=== PATIENT | female | born 1980 | race Caucasian/White ===

== ENCOUNTER 2023-10-18 17:21 | Emergency (ER) | payer MEDICAID, SELFPAY ==
[2023-10-18 17:26] VITALS: BP 133/98; PULSE 80; RESP 18; TEMP 36.7; O2SAT 99; BMI 32.3
--- NOTE | 2023-10-18 17:33 | XR_ITS ---
The [address] [address] Patient Name: NISA ARSHAD MRN: [id number] date: 1980 Sex: F Assigned Patient Location: ER Current Patient Location: ED.MAIN Accession/Order Number: [id number] Exam Date: 10/18/2023 17:46 Report Date: 10/18/2023 18:04 At the request of: GARY COSTELLO Procedure: XR chest 1V EXAM: Chest x-ray HISTORY: . Cough . COMPARISON: None TECHNIQUE: Single view of the chest. FINDINGS: Heart and vascularity are unremarkable. Lungs are free of focal infiltrates. Patient is slightly rotated on today's exam. Grossly no bony abnormality is appreciated. XR/XR chest 1V Impression: No acute heart or lung disease identified. Electronically authenticated by: CAMILLE ECHEVERRIA Date: 10/18/2023 18:04
--- NOTE | 2023-10-18 17:33 | ED_ITS ---
HPI - URI/Sore Throat General Chief Complaint: Upper Respiratory Infection Stated Complaint: Upper Respiratory Infection Time Seen by Provider: 10/18/23 17:22 Source: patient History of Present Illness HPI Narrative: Patient is a 43-year-old female who presents to the emergency department for cough and chest congestion for the last month. She states she is coughing up green. She has had no hemoptysis, fevers, vomiting. She has been intermittently nauseous. She reports pain in the chest wall with deep breathing and coughing. She does not take control, she has had no extremity swelling, no major medical history. She has been using ibuprofen, Tylenol and uxcv-bns-zvnffwt cough medications without improvement. She is not concerned for .No sick contacts in the home. Related Data Previous Rx's Medication Instructions Recorded kpraeybhjykyolf-wttvfnyttntjljz-GM 10 ml PO Q6H PRN cold symptoms 10/18/23 2 mg-30 mg-10 mg/5 mL oral syrup #200 mL (Bromfed DM) doxycycline hyclate 100 mg tablet 100 mg PO BID 10 days #20 tabs 10/18/23 methylprednisolone 4 mg tablets in See Rx Instructions .Route 10/18/23 a dose pack (Medrol (Matt)) .COMPLEX #21 ea Allergies Allergy/AdvReac Type Severity Reaction Status Date / Time No Known Drug Allergies Allergy Verified 10/18/23 17:29 Review of Systems ROS Constitutional Denies: fever or chills Ears, nose, mouth, and throat Reports: nasal congestion; Denies: throat pain Respiratory Reports: cough, pain on inspiration, change in phlegm color and chest congestion; Denies: coughing up blood Gastrointestinal Reports: nausea; Denies: vomiting or diarrhea Musculoskeletal Denies: back pain or neck pain Integumentary/Breast Denies: rash Neurological Denies: headache Hematologic/Lymphatic Denies: easy bruising Exam Narrative Exam Narrative: Gen.: Awake, alert, in no distress Head: Normocephalic, atraumatic ENT: Moist mucous membranes, Bilateral TMs bulging, no pharyngeal erythema Respiratory: No respiratory distress, lungs clear bilaterally; No wheezing or rhonchi noted Cardio: Regular rate and rhythm Extremities: Moves extremities equally Psych: Normal mood and affect Neuro: No focal neuro deficit Skin: Warm, dry, intact Constitutional Vital Signs, click to edit/add: Last Vital Signs Temp 98.0 F 10/18/23 17:26 Pulse 80 10/18/23 17:26 Resp 18 10/18/23 17:26 BP 133/98 H 10/18/23 17:26 Pulse Ox 99 10/18/23 17:26 O2 Del Method Room Air 10/18/23 17:26 Course Vital Signs Vital signs: Vital Signs Temperature 98.0 F 10/18/23 17:26 Pulse Rate 80 10/18/23 17:26 Respiratory Rate 18 10/18/23 17:26 Blood Pressure 133/98 H 10/18/23 17:26 Pulse Oximetry 99 10/18/23 17:26 Oxygen Delivery Method Room Air 10/18/23 17:26 Temperature 98.0 F 10/18/23 17:26 Pulse Rate 80 10/18/23 17:26 Respiratory Rate 18 10/18/23 17:26 Blood Pressure 133/98 H 10/18/23 17:26 Pulse Oximetry 99 10/18/23 17:26 Oxygen Delivery Method Room Air 10/18/23 17:26 MDM - URI/Sore Throat MDM Narrative Medical decision making narrative: Patient with stable vital signs, normal oxygenation and no tachycardia in the ER. Chest x-ray obtained. No evidence of acute cardiopulmonary changes noted on x-ray. Patient treated based on duration of her symptoms with doxycycline, steroids, Bromfed-DM. She maintains normal vital signs. She appears well- hydrated and nontoxic. She was given education and reassurance. Follow-up with PCP and return to the ER if symptoms change or worsen Medical Records Attestation: I reviewed the patient's medical records. Imaging Data Chest x-ray: Attestation: I have reviewed the pertinent imaging results. Radiologist's impression: ITS Impressions Chest X-Ray 10/18/23 17:33 Impression: No acute heart or lung disease identified. Electronically authenticated by: CAMILLE ECHEVERRIA Date: 10/18/2023 18:04 Discharge Plan Discharge Chief Complaint: Upper Respiratory Infection Clinical Impression: Upper respiratory infection, Cough Patient Disposition: Home, Self-Care Time of Disposition Decision: 18:14 Condition: Good Prescriptions / Home Meds: New methylprednisolone [Medrol (Matt)] 4 mg tablets,dose pack See Rx Instructions .ROUTE .COMPLEX Qty: 21 0RF Rx Instructions: Taper as directed zlhdivbnqwezuui-rrzxujmpx-UE [Bromfed DM] 2-30-10 mg/5 mL syrup 10 ml PO Q6H PRN (Reason: cold symptoms) Qty: 200 0RF doxycycline hyclate 100 mg tablet 100 mg PO BID 10 Days Qty: 20 0RF Instructions: Upper Respiratory Infection (ED), Acute Cough (ED) Stand Alone Forms: Portal Instructions Referrals: BOB HUMPHRIES [Primary Care Provider] - 1 week
[2023-10-18] MEDS: PREDNISONE 20 MG TABLET 60 MG PO (18:50)
[2023-10-18] MEDS: DOXYCYCLINE MONOHYDRATE 100 MG CAPSULE PO (18:50)
== END 2023-10-18 18:56 | disposition home or self-care (01) ==
PROVIDERS: Emergency Provider Emergency Medicine; PCP Family Medicine
DX: R05.9 Cough, unspecified (principal); J06.9 Acute upper respiratory infection, unspecified
CPT/HCPCS: 71045; 99283; J7512

== ENCOUNTER 2024-02-02 07:41 | Emergency (ER) | payer MEDICAID, SELFPAY ==
[2024-02-02 07:47] VITALS: BP 125/78; PULSE 102; O2SAT 100; BMI 29.3
--- OUTSIDE RECORDS SUMMARY | 2024-02-02 08:07 | XMS_ITS | CCD ---
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 Name Role Phone DARRON MCMILLAN Primary Care Physician Magdi Gutierrez Admitting Unavailable Magdi Gutierrez Attending Unavailable Darron Mcmillan Primary Care Unavailable ESTUARDO ECHEVERRIA Attending Unavailable Darron Mcmillan Primary Care Unavailable Darron Mcmillan Attending Unavailable Darron Mcmillan Primary Care Unavailable Darron Mcmillan Attending Unavailable Darron Mcmillan Primary Care Unavailable Darron Mcmillan Attending Unavailable Allergies Allergy Classification Reported Allergen(s) Allergy Type Date of Onset Reaction(s) Facility (1 source) No Known Medication Allergies; Translations: [No Known Medication Allergies] Propensity to adverse reactions to drug (disorder) [facility] Repository Medications Current Medications Medication Drug Class(es) Dates Sig (Normalized) Sig (Original) diphenhydrAMINE hydrochloride 25 mg oral capsule (1 source) Histamine-1 Receptor Antagonist Start: 04-22-2022 take 1 capsule by mouth three times daily as needed Benadryl 25 mg Cap 1 -2 caps, Oral, TID, PRN for itching, # 30 cap(s), Refills(s) 0 Start Date: 04/22/22 Status: Ordered Completed/Discontinued Medications Medication Drug Class(es) Dates Sig (Normalized) Sig (Original) cephalexin 500 mg oral capsule (1 source) Cephalosporin Antibacterial Start: 04-22-2022 take 1 capsule by mouth three times daily Keflex 500 mg Cap 500 mg = 1 cap(s), Oral, TID, Take one capsule by mouth three times a day for ten days, # 30 cap(s), Refills(s) 0 Start Date: 04/22/22 Status: Ordered Problems Problem Classification Problem Date Documented Da te Episodic/Chronic Abdominal pain (1 source) Lower abdominal pain, unspecified; Translations: [Lower abdominal pain, unspecified] Onset: 12-16-2023 Episodic Allergic reactions (1 source) Contact dermatitis; Translations: [Unspecified contact dermatitis, unspecified cause] Onset: 04-22-2022 Episodic Other skin disorders (1 source) Rash and other nonspecific skin eruption; Translations: [Rash and other nonspecific skin eruption] Onset: 03-17-2023 Episodic Skin and subcutaneous tissue infections (1 source) Cellulitis; Translations: [Cellulitis, unspecified] Onset: 04-22-2022 Episodic Results Test Name Value Interpretation Reference Range Facil [facility] Basic Metabolic Profon 12-15 Anion gap [Moles/Vol] 10 mmol/L Normal 9-17 [facility] Comment on above: Performed By: #### B MP, CDP, LIP, HCG, LIVP #### [facility] [address] [place] [address] [place] [address] Human Resource Statistician: Haris Baker MD BUN/CRE Ratio 10 Normal 9-20 [facility] Comment on above: Performed By: #### B MP, CDP, LIP, HCG, LIVP #### [facility] [address] [place] [address] [place] [address] Human Resource Statistician: Haris Baker MD Calcium [Mass/Vol] 9.0 mg/dL Normal 8.6-10.4 [facility] Comment on above: Performed By: #### B MP, CDP, LIP, HCG, LIVP #### [facility] [address] [place] [address] Dr. [place], [facility] Human Resource Statistician: Haris Baker MD Chloride [Moles/Vol] 102 mmol/L Normal 98-107 [facility] Comment on above: Performed By: #### B MP, CDP, LIP, HCG, LIVP #### [facility] [address] [place] [address] [place] [address] Human Resource Statistician: Haris Baker MD CO2 [Moles/Vol] 25 mmol/L Normal 20-31 [facility] Comment on above: Performed By: #### B MP, CDP, LIP, HCG, LIVP #### [facility] [address] [place] [address] Human Resource Statistician: Haris Baker MD Creatinine [Mass/Vol] 0.7 mg/dL Normal 0.5-0.9 [facility] Comment on above: Performed By: #### B MP, CDP, LIP, HCG, LIVP #### [facility] [address] [place] [address] Human Resource Statistician: Haris Baker MD GFR/1.73 sq M.predicted among non-blacks MDRD (S/P/Bld) [Vol rate/Area] mL/min/{1.73_m2} Normal >60 [facility] Comment on above: Result Comment: These results are not intended for use in patients <18 years of age. eGFR results are calculated without a race factor using the 2020 CKD-EPI equation. Careful clinical correlation is recommended, particularly when comparing to results calculated using previous equations. The CKD-EPI equation is less accurate in patients with extremes of muscle mass, extra-renal metabolism of creatine, excessive creatine ingestion, or following therapy that affects renal tubular secretion. Performed By: #### B MP, CDP, LIP, HCG, LIVP #### [address] [place] [address] Human Resource Statistician: Haris Baker MD Glucose [Mass/Vol] 138 mg/dL High 70-99 [facility] Comment on above: Performed By: #### B MP, CDP, LIP, HCG, LIVP #### [facility] [address] [place] [address] Human Resource Statistician: Haris Baker MD Potassium [Moles/Vol] 3.4 mmol/L Low 3.7-5.3 [facility] Comment on above: Performed By: #### B MP, CDP, LIP, HCG, LIVP #### [address] [place] [address] Human Resource Statistician: Haris Baker MD Sodium [Moles/Vol] 137 mmol/L Normal 135-144 [facility] Comment on above: Performed By: #### B MP, CDP, LIP, HCG, LIVP #### [facility] [address] [place], [place] [id number] Human Resource Statistician: Haris Baker MD Urea nitrogen [Mass/Vol] 7 mg/dL Normal 6-20 [facility] Comment on above: Performed By: #### B MP, CDP, LIP, HCG, LIVP #### [facility] [address] [place], [place] [id number] Human Resource Statistician: Haris Baker MD CBC with Diffon 12-16-2023 Abs. Basophil 0.05 k/uL Normal 0.00-0.20 [facility] Comment on above: Performed By: #### B MP, CDP, LIP, HCG, LIVP #### [address] [place], [place] [id number] Human Resource Statistician: Haris Baker MD Abs.Imm.Granulocyte <0.03 Normal 0.00-0.30 [facility] Comment on above: Performed By: #### B MP, CDP, LIP, HCG, LIVP #### [address] [place], [place] [id number] Human Resource Statistician: Haris Baker MD Abs.Neutrophil (Seg) 5.73 k/uL Normal 1.50-8.10 [facility] Comment on above: Performed By: #### B MP, CDP, LIP, HCG, LIVP #### [facility] [address] [place] [address] Dr. [place], [place] [id number] Human Resource Statistician: Haris Baker MD Basophils/100 WBC (Bld) 1 % Normal 0-2 [facility] Comment on above: Performed By: #### B MP, CDP, LIP, HCG, LIVP #### [facility] [address] [place], [place] [id number] Human Resource Statistician: Haris Baker MD Eosinophils (Bld) [#/Vol] 0.19 10*3/uL Normal 0.00-0.44 [facility] Comment on above: Performed By: #### B MP, CDP, LIP, HCG, LIVP #### [address] [place], [place] [id number] Human Resource Statistician: Haris Baker MD Eosinophils/100 WBC (Bld) 2 % Normal 1-4 [facility] Comment on above: Performed By: #### B MP, CDP, LIP, HCG, LIVP #### [address] [place] [id number] Human Resource Statistician: Haris Baker MD Erythrocyte distribution width (RBC) [Ratio] 12.5 % Normal 11.8-14.4 [facility] Comment on above: Performed By: #### B MP, CDP, LIP, HCG, LIVP #### [address] [place], [place] [address] Human Resource Statistician: Haris Baker MD Hematocrit (Bld) [Volume fraction] 44.6 % Normal 36.3-47.1 [facility] Comment on above: Performed By: #### B MP, CDP, LIP, HCG, LIVP #### [address] [place] [address] Human Resource Statistician: Haris Baker MD Hemoglobin (Bld) [Mass/Vol] 14.7 g/dL Normal 11.9-15.1 [facility] Comment on above: Performed By: #### B MP, CDP, LIP, HCG, LIVP #### [address] [place] [address] Human Resource Statistician: Haris Baker MD Immature granulocytes/100 WBC (Bld) 0 % Normal 0 [facility] Comment on above: Performed By: #### B MP, CDP, LIP, HCG, LIVP #### [address] [place] [id number] Human Resource Statistician: Haris Baker MD Lymphocytes (Bld) [#/Vol] 3.07 10*3/uL Normal 1.10-3.70 [facility] Comment on above: Performed By: #### B MP, CDP, LIP, HCG, LIVP #### [address] [place] [id number] Human Resource Statistician: Haris Baker MD Lymphocytes/100 WBC (Bld) 32 % Normal 24-43 [facility] Comment on above: Performed By: #### B MP, CDP, LIP, HCG, LIVP #### [address] [place] [id number] Human Resource Statistician: Haris Baker MD MCH (RBC) [Entitic mass] 29.5 pg Normal 25.2-33.5 [facility] Comment on above: Performed By: #### B MP, CDP, LIP, HCG, LIVP #### [address] [place], [facility]83 Human Resource Statistician: Haris Baker MD MCHC (RBC) [Mass/Vol] 33.0 g/dL Normal 28.4-34.8 [facility] Comment on above: Performed By: #### B MP, CDP, LIP, HCG, LIVP #### [address] [place], [facility]83 Human Resource Statistician: Haris Baker MD MCV (RBC) [Entitic vol] 89.4 fL Normal 82.6-102.9 [facility] Comment on above: Performed By: #### B MP, CDP, LIP, HCG, LIVP #### [address] [place] [address] Human Resource Statistician: Haris Baker MD Monocytes (Bld) [#/Vol] 0.70 10*3/uL Normal 0.10-1.20 [facility] Comment on above: Performed By: #### B MP, CDP, LIP, HCG, LIVP #### [facility] [address] [place], [place] [address] Human Resource Statistician: Haris Baker MD Monocytes/100 WBC (Bld) 7 % Normal 3-12 [facility] Comment on above: Performed By: #### B MP, CDP, LIP, HCG, LIVP #### [facility] [address] [place], [place] [address] Human Resource Statistician: Haris Baker MD Neutrophil (Seg) 58 % Normal 36-65 [facility] Comment on above: Performed By: #### B MP, CDP, LIP, HCG, LIVP #### [facility] [address] [place], [facility]83 Human Resource Statistician: Haris Baker MD NRBC Automated 0.0 per 100 WBC Normal 0.0 [facility] Comment on above: Performed By: #### B MP, CDP, LIP, HCG, LIVP #### [address] [place], [facility]83 Human Resource Statistician: Haris Baker MD Platelet mean volume (Bld) [Entitic vol] 10.3 fL Normal 8.1-13.5 [facility] Comment on above: Performed By: #### B MP, CDP, LIP, HCG, LIVP #### [address] [place], [place] [address] Human Resource Statistician: Haris Baker MD Platelets (Bld) [#/Vol] 289 10*3/uL Normal 138-453 [facility] Comment on above: Performed By: #### B MP, CDP, LIP, HCG, LIVP #### [address] [place] [address] Human Resource Statistician: Haris Baker MD RBC (Bld) [#/Vol] 4.99 10*6/uL Normal 3.95-5.11 [facility] Comment on above: Performed By: #### B MP, CDP, LIP, HCG, LIVP #### [facility] [address] [place], [place] [address]83 Human Resource Statistician: Haris Baker MD WBC (Bld) [#/Vol] 9.8 10*3/uL Normal 3.5-11.3 [facility] Comment on above: Performed By: #### B MP, CDP, LIP, HCG, LIVP #### [facility] [address] [place] [address] Human Resource Statistician: Haris Baker MD CT ABDOMEN PELVIS W IV CONTR Varun 12-16-2023 CT ABDOMEN PELVIS W IV CONTRAST EXAMINATION: CT OF THE ABDOMEN AND PELVIS WITH CONTRAST 12/16/2023 2:40 am TECHNIQUE: CT of the abdomen and pelvis was performed with the administration of intravenous contrast. Multiplanar reformatted images are provided for review. Automated exposure control, iterative reconstruction, and/or weight based adjustment of the mA/kV was utilized to reduce the radiation dose to as low as reasonably achievable. COMPARISON: None. HISTORY: ORDERING SYSTEM PROVIDED HISTORY: Left lower quadrant pain, suprapubic pain TECHNOLOGIST PROVIDED HISTORY: Left lower quadrant pain, suprapubic pain Decision Support Exception - unselect if not a suspected or confirmed emergency medical condition->Emergency Medical Condition (MA) FINDINGS: Lower Chest: Visualized portion of the lower chest demonstrates no acute abnormality. Organs: The liver is noted for a subcentimeter hypodensity at the posterior dome compatible with cyst but too small to accurately characterize. No imaging follow-up recommended. The liver otherwise is unremarkable. The gallbladder, pancreas, spleen, adrenal glands, kidneys and visualized ureters are unremarkable. GI/Bowel: Stomach and duodenal sweep demonstrate no acute abnormality. There is no evidence of bowel obstruction. No evidence of abnormal bowel wall thickening or distension. No evidence of appendicitis but the appendix is not seen. Pelvis: The bladder and reproductive organs are unremarkable. Peritoneum/Retroperit oneum: No evidence of ascites or free air. No evidence of lymphadenopathy. Aorta is normal in caliber. Bones/Soft Tissues: No acute bone or soft tissue abnormality evident. IMPRESSION: No acute intra-abdominal or intrapelvic process. Interpreted by: Baryr Sherman MD Signed by: Barry Sherman MD 12/16/23 Final result Normal [facility] HCG Screen, Bloodon 12-16-19 HCG Screen, Blood Negative Normal NEG [facility] Comment on above: Result Comment: Spec imens with hCG levels near the threshold of the test (25 mIU/mL) may give a negative or indeterminate result. In such cases, another test should be performed with a new specimen in 48-72 hours. If early is suspected clinically in this setting, correlation with quantitative serum b-hCG level is suggested. [facility] has confirmed the use of plasma for this test. This has not been cleared or approved by the U.[place]. Food and Drug Administration. The FDA has determined that such clearance is not necessary. Performed By: #### B MP, CDP, LIP, HCG, LIVP #### [facility] [address] [place] [address] Human Resource Statistician: Haris Baker MD Lipaseon 12-16-2023 Lipase [Catalytic activity/Vol] 22 U/L Normal 13-60 [facility] Comment on above: Performed By: #### B MP, CDP, LIP, HCG, LIVP #### [facility] [address] [place] [address] Human Resource Statistician: Haris Baker MD Liver Profileon 12-16-2023 Albumin [Mass/Vol] 4.0 g/dL Normal 3.5-5.2 [facility] Comment on above: Performed By: #### B MP, CDP, LIP, HCG, LIVP #### [facility] [address] [place] [address] Human Resource Statistician: Haris Baker MD Albumin/Glob Ratio 1.2 Normal 1.0-2.5 [facility] Comment on above: Performed By: #### B MP, CDP, LIP, HCG, LIVP #### [facility] [address] [place] [address] Human Resource Statistician: Haris Baker MD Alkaline Phos 58 U/L Normal 35-104 [facility] Comment on above: Performed By: #### B MP, CDP, LIP, HCG, LIVP #### [facility] [address] [place], [place] [id number] Human Resource Statistician: Haris Baker MD ALT [Catalytic activity/Vol] 14 U/L Normal 5-33 [facility] Comment on above: Performed By: #### B MP, CDP, LIP, HCG, LIVP #### [facility] [address] [place] [address] Human Resource Statistician: Haris Baker MD AST [Catalytic activity/Vol] 13 U/L Normal <32 [facility] Comment on above: Performed By: #### B MP, CDP, LIP, HCG, LIVP #### [address] [place], [place] [address]383 Human Resource Statistician: Haris Baker MD Bilirubin [Mass/Vol] 0.7 mg/dL Normal 0.3-1.2 [facility] Comment on above: Performed By: #### B MP, CDP, LIP, HCG, LIVP #### [address] [place], [place] [address]83 Human Resource Statistician: Haris Baker MD Bilirubin, Indirect Can not be calculated Normal 0.0-1 .0 [facility] Comment on above: Performed By: #### B MP, CDP, LIP, HCG, LIVP #### [address] [place], [place] 240[address]483 Human Resource Statistician: Haris Baker MD Bilirubin.indirect [Mass/Vol] mg/dL Normal <0.3 [facility] Comment on above: Performed By: #### B MP, CDP, LIP, HCG, LIVP #### [facility] [address] [place], [place] [address]83 Human Resource Statistician: Haris Baker MD Protein [Mass/Vol] 7.4 g/dL Normal 6.4-8.3 [facility] Comment on above: Performed By: #### B MP, CDP, LIP, HCG, LIVP #### [facility] [address] [place], [place] [address]83 Human Resource Statistician: Haris Baker MD UA w/Reflex Cultureon 2023 Bilirubin, SemiQt,Ur Negative Normal NEG [facility] Comment on above: Performed By: #### U AX, UMICAO #### [facility] [address] [place] [address] Human Resource Statistician: Haris Baker MD Blood, Urine Negative Normal [facility] Comment on above: Performed By: #### U AX, UMICAO #### [facility] [address] [place] [address] Human Resource Statistician: Haris Baker MD Clarity (U) Clear Normal CLEAR [facility] Comment on above: Performed By: #### U AX, UMICAO #### [facility] [address] [place], [place] 5284383 Human Resource Statistician: Haris Baker MD Color (U) Yellow Normal YEL [facility] Comment on above: Performed By: #### U AX, UMICAO #### [facility] [address] [place] [address] Human Resource Statistician: Haris Baker MD Glucose Ql (U) Negative Normal NEG [facility] Comment on above: Performed By: #### U AX, UMICAO #### [facility] [address] [place] [address] Human Resource Statistician: Haris Baker MD Ketones Ql (U) Negative Normal NEG [facility] Comment on above: Performed By: #### U AX, UMICAO #### [facility] [address] [place] [address] Human Resource Statistician: Haris Baker MD Leukocyte esterase Test strip Ql (U) Negative Normal NEG [facility] Comment on above: Performed By: #### U AX, UMICAO #### [facility] [address] [place], [place] [address] Human Resource Statistician: Haris Baker MD Nitrite,Ur Negative Normal NEG [facility] Comment on above: Performed By: #### U AX, UMICAO #### [facility] [address] [place], [place] [address] Human Resource Statistician: Haris Baker MD PH,Ur 6.0 Normal 5.0-9.0 [facility] Comment on above: Performed By: #### U AX, UMICAO #### [facility] [address] [place], [place] [address] Human Resource Statistician: Haris Baker MD Protein Ql (U) Negative Normal NEG [facility] Comment on above: Performed By: #### U AX, UMICAO #### [facility] [address] [place], [place] [address] Human Resource Statistician: Haris Baker MD Spec. [place],Ur 1.010 Normal 1.010-1.020 [facility] Comment on above: Performed By: #### U AX, UMICAO #### [address] [place], [place] [address] Human Resource Statistician: Haris Baker MD Urobilinogen,Ur Normal Normal 0.0-1.0 [facility] Comment on above: Performed By: #### U AX, UMICAO #### [facility] [address] [place] [address] Human Resource Statistician: Haris Baker MD Urinalysis,Microon 4 Epithelial cells LM Ql (Urine sed) None Normal 0-25 [facility] Comment on above: Performed By: #### U AX, UMICAO #### [facility] [address] [place], [place] [address] Human Resource Statistician: Haris Baker MD Urine RBC's None Normal 0-2 [facility] Comment on above: Performed By: #### GUERLINE SELBY #### [facility] [address] [place], [place] [address]83 Human Resource Statistician: Haris Baker MD Urine WBC's None Normal 0-5 [facility] Comment on above: Performed By: #### GUERLINE SELBY #### [facility] [address] [place] [address] Human Resource Statistician: Haris Baker MD Outside Recordson 11-27-2023 Outside Records [id number]. [facility]23 Outside Records [id number]#1 .00[facility] Rad - Other Radiology Report on 10-20-2023 Rad - Other Radiology Report [id number] .00[facility] Outside Recordson 03-18-2023 Outside Records [id number]#1 .00[facility] Coding Summary.on 04-23-2022 Coding Summary. CD:[id number] G h0bWw+PGhlYWQ+YI7VZCX zZ75waGApmS3VI9bSHP2W VXBJIFZUMS7ADU0fnNU0R AnwM6IkyuEk DwhdcRJwGU78ZQw5VKW1w NhsEWliqX0fsCIjI1v0Ck YnZG25mC05RDtxAWMdKiF 3LjZpbjsgbWFy V4vlRiYyoNMcIpb+PHRhY mxlIHdpZHRoPScxMDAlJy NffMzaMI3eQx3xWKBqMSQ vbGxhcHNlOiBj n2nwHZGwSYjxEM8qqLeoG 7CdyBN8UMWkb7m4Mf58fS I+KLMfZXA9cYvoMXmza18 7PuSwy4ymCXW5 gWKgYJqgGUX3Z56op9Z0Q LTjJARuOAJ3aPU8vN1uaW awqrqjK2KjsSGxMoH3NRQ 1rLLvoQ1pfTav vwvycZ3xVau+N49WVD4PF LGIYN1WQnu3U0SiPehlsH I+US55SYImRR54fSPbyAA cz7ncfIs6QxBk EXCrDEJ6wLgaDRcwv6FkI TSoE20weCTpi9B2KESjiO wluEAjSjOfvPX9xI2vNUm utgfac6jlxxlk Mnxjb1mtfq40iA24B25mH OydPUFhBPG1YOQyOONzpS ijfj0sgI2jZs2+FWjrx2f lr4quuMx8ToUt AHNlksSwePrsLOU3f6JpB l89F3TavGskw0TiSuz3wp 32gZJrb2L3uTV4PLdhGDX cyU3eIFqqYsH3 QMXoKgKmzD32vIBoCBvnM e6nlCryqMplUN8aKSYrfe ypCXIjyT4dQMNtaYEgbPz gMW1vBSIkvglw r003EuYwZZH3VZNblWVdZ 2JqkL0yAdSaOYNbQTXrL4 YhrFVjIQuzT834PUhsLgP 3ATIqrhZlG7Yj BXRewPrwSpR3p5C8Uw7Oc 9TqkrxaEAC7ZZadAIO4Sj EfVnZsMuA4E2WlDbr0FJE ptPcbSE5wM3Nw IOAztbywydavuVP6CCRhM KPunY68fSXaSUhuZo9fe9 O5k950IABoFJOzwA89Uz3 udDogMTBwdCBU eU6wijxrt8ddxdnqAgIhF HHiDTr2UEx7DJMbjAkpRv YrMXF7WkM8HJK3dCLfaW5 edKgzetajvX8f Oyc+B39xnM6cREM3DDH3e dvtEYAhorVxIQ08TV57I9 RyPjwvdGFibGU+PGRpdiB gpFzuRU7bYlIq v6ycc1SmOFrrC3BuELMwY VtrQbg7VZKdJYR5eIS1jD 9tZUBvNRzsz9Q2nDK9E2A hfeTydx1dj6fp EQGlPGszA81lgOJnw1W3T NEorPD2FZLiiPzpCkNddY 93Oyc+PJVaoSmmo7AfWsj qg7jum4pwnZq4 WcRpHLZmtwRcoMzjHJU3h 2VuXs03Z78jKBdeTVKbEX QcQSEjJAZkeOzukm3cpS7 wIi8+PGNvbCB3 aQP7aQ4kGZKbXoF0FBdjW 915WdXsxZRdYntjg3iyq6 iexCm3WbSvDIVqbwOjmBn xOQB4w8HdXg92 K09gJImzBEQqFXVaDPCuZ ZTxmGxvjo9lpX6iOs5+PC 5tf5pgqx81cM31nUR+PHR rETH8uQpwZTyp RGAxbZ0bSCdtXiR4RINjG jNnpA81lLDcKMkxBo9slV iamChpFW9qDPVumovhh51 5FiSzh2xnQRHz qDPjTJppYSH5Q14bq2F2D GYiVAAzARW3kNX0kT5fgH lnbjogbGVmdDsgdmVydGl fPDgmALqcM046 IHRvcDsnPlBhdGllbnQgT bZtVOv6O9IyPgy5RXQhiO ykPF0nvIOiOEngJg8fgRe lzWnbQH2gVQOj bfnjo177QuTxt3irIHEmc DAuXPetYDI6Q81ol5U1AL AfYMQsZXC8xJD3qH4cxWx nbjogbGVmdDsg xeCszJxlKShuRLglA635Y HRvcDsnPkJpcnRoIERhdG W4QW74JJ51cQFas8O0yPU 0P9MiNGWnxzns mpzmpHI0CNAkWZGpgI03T i3baWrcDi5eXAWlZBY2WC EovAPcT4WqoX2fZjBoYON kICPeG0UjrXBs BRenT079KAifGtO3KCJmb cFvJ0VeBVAvjWiyXjI5p1 N4Rz0TH6Y4HT60VE61eJB vb5D7hHY7M2Ce YRUrxglkvcbpoKG8HMGcT IJatA49Ja5thIqtSh0jCJ UuICR4CUTwfKPfT3HquL5 yOiAjMDAwMDAw D1PxfKBlTGiiX377ZTxrQ mW6LVDuzrQpL9PyMOBzgC qrNtI8k2X9Ag5CNCr7LV7 8OC86yBCoj6T6 hEK8T8FoZCYihfoskwpiu OG2NUOqLLOkhC01Nu7reC zzYa9tVZEiJIP0EHKsiLQ vY4ZniU4vOwOs CGQsFFItO5InvBSaVSqgP 074XZvnTzP5DUTlpsStR7 HrDPQisPcfUbD7a4K1Lr2 PCDStVT17LSB2 jMK8ZM67BX65B6UrOaipy GFibGU+PHRhYmxlIHdpZH RoPScxMDAlJyBzdHlsZT0 tFp7wUUTxDVNy cWjmiZUjWrVco2rdNYDxL HgnNN9mpNloB9BnwRB2TP Vuc6x3Uz36R73wS7RfjLF +SVWwhTS6eUR4 kI3oTwBdJjC8CJcsQ219E zNdvOZyXotse9oxt5mazZ q2WlC7URJcxtKplZfkIVH 6f6NiBm24I02b IHdpZHRoPSIxNSUiIHZhb Njnbx6efW6wLl9+PGNvbC E8bSK9iH5eRrZxGlS2BOa uC237YgAlrIXn Jwybc6uxy8znzWr9WqOuY ACnroKxgFqqFAB5i1FkTp 41J5KliBofd3GhLtz1wd1 2oGJhe6Z4fRB2 M7NkADXeeuueoLRsvMouO E4xKPKusieuFBEoaZ5lIW XbA7m3PoOfVxB0OFgdK0L vnpQ5IWWetCJw ATxbALT5L83yo7C7YZZfX HDbXUV0cTO4vX3btRgfbl ogbGVmdDsgdmVydGljYWw aUOnlZ111BYNn wPfuXDUnzV7vQECwyMAbg TxbLS4sSXZuiayeSjhIDK LfVT6MS61AYWRYWY66WL3 1zVCow5I8rFS3 H9SbKEIrgwdvonipdFY3J RVbTXCghN52wGPmYWjzPa 6jc2W2b476EFZsVZUmpM8 7Ko5wfMlaNCIy mQARbF0eyvrhn6wxpvrkD iOsSMXrFXs4CJu9RKCxlM liEzDiZIF2BfU0EZQ6aRN enN8kzMrfubeo sZ6uJmy+LWUjAMXaDXi7F TwvdGQ+MDQkGSG8xDzgFI hoLCIkyA7nKKTyN3a0ReQ sUhD5TYiwY4Gg MJAheoclEo03dQ7lXjYuF hB0FKueG8IzjdO6WHVexU JsBMrwWFJ1I07io9L9DQN nPSNoRLJ3fKA2 wF9frHfizgvgzJYicRhnh aXscAogCGrxZZzpP719YI RvcDsnPjQzIFllYXJzPC9 8SF23aVKfd4O8 gPB1C8QdLWNvbthnykvux OE4FHXqLLYaxI66zNRfPU amNd6bw1N6t282CSMaXBN tiC89Ra9cjXkc WFDxgROGwH2vucdvm7ceo atcYnRwKYOyISx6IVn2AW EebSkqXbTiQMS8EpG0DIM 7gFHejJ2coPrj ohvedV9zZwt+RmVtYWxlP T94EE61wEOeq5I1lVG7R2 McNVAhvnptwlxkfMP9PWJ fRMYckH36aSLw FQfjQs1xq7F6l400XHDqO JCuhQ39Ns8ecZbuDWTykE LZoA2rylmxk9osyhvtYsM kZJKpQKk7WHh9 YLMgtVchVdWbPOV2JkZ0U RB7wEEebB5clQhoaexwjS 9wOyc+XF2nblbxrrL0RA6 5HA06J3FcGmjc dGFibGU+PHRhYmxlIHdpZ HRoPScxMDAlJyBzdHlsZT 2yUh2jVCDtAKZrfEvjsJT hBpGxq2wySNOp QBkdHV7qdHuxI8RoxTF2M POcx4p8Yv76J01sO1QmvZ A+JZXwkPV7nPE6vQ2bTbK dPrV1KBacO586 EiOsbAJrNpowk9wqn7msl Sa2KcKlGTLsrbCdwPhpYZ U9q1MrWw81G35oAZmjROQ oPSIyMCUiIHZh kCtlhz8toM7cJu4+PGNvb AW2bWZ0jZ8xCtXwPzD6RP jmZ894GkTwrBIuMupgA67 dF3OjxIA+PHRy Vne1PPOlrVorIC3nhSDyF HdcGa3pLWO9ImQyClXxZA nnC6PvONQqjuogvinokDN 3HEPdCDGqdR87 Qo5diKdqUi1jOIPxPQO2J NXoqGPdO2LqkG9yBuAsEX DnOYEdZ0EgkZVvVGlwZ49 0GXccAhI5XTAv wmLtF2ZcTADhqAghXsD9m 2P2Uh3KeAixiPGyOE9xZh SmLRo8C9UcCwe6NVDmmQx oOP5trQAjOQco Pi4iuSwtpYnbEY5jFJIuc uqkt802OrGnm8iaMYPqvT PeHPazSLM1K86ml8B9NOT eTIHgALZ2kAM4 rX5jmYcoszwrgVKkpCxvl bUxyLgaRYjbFClbK823ED GjcMfvCvZQTyy1I7QtNzo 3CCRseBqhQQ9p qMKgPVqjVh2sxMmieQruN N3kNDBdlnmfx831XoIca8 zeHZKagKMcMDkzFHW1F06 bt8Y6QLTqVYPz HYY1jAR4kC0jeTcokmnny GVmdDsgdmVydGljYWwtYW kiG757MBLsoPegUu4LMll 9P7MqGdj7QYAp dAiaKZ3niYYbHOlpVd4nk UxsjQhrLR7gAXQvdoejj6 37SkIzy1amNWCijRBsXIx cLXM3I74kl9X5 JLRoDBDnEIN0iDM8oN8ki GlnbjogbGVmdDsgdmVydG tuPSxjTGguM694NKXteKx nPlBheWVyOjwv dGQ+BW16lp83H2AuPvkaH my8OEFfWNE6jUJ4hE1ePV HeHEvak6B1hIC4C2UwrqQ zkn9dm1kpPYSp ZTog (more content not included)... Normal [facility] ED Note-Physicianon 04-23-20 ED Note-Physician Basic Information Time Seen: Krystal FELIZPhilippe 04/22/2022 11:36 Chief Complaint patient c/o rash that started 1 week ago, now all over body History of Present Illness 42-year-old female comes to the ED for evaluation of a rash. She developed a pruritic rash last week. States she was seen in outside ED and was told that she had bug bites was placed on topical cream. Pharmacy records show this is permethrin. She continues to complain of pruritic rash across all extremities, and now has developed some areas of pain with drainage. She does state that the rash began after she was outdoors pulling weeds. No fever, chills, nausea, vomiting. No chest pain or shortness of breath. No other complaints or concerns. No other prior treatments. Review of Systems A 10 point review of systems is negative except as noted above. Medical and Surgical History: Reviewed and noted Social history: Lives at home Tobacco: Denies Physical Exam Vitals & Measurements T: 36.6 ?C(Oral) HR: 93(Peripheral) BP: 142/89 SpO2: 100% HT: 160 cm HT: 160.0 cm WT: 94 kg WT: 94.0 kg BMI: 36.72 Nurses notes and vital signs reviewed and patient is not hypoxic. General: The patient appears well, resting comfortably. Skin: Warm, dry. Scattered erythematous excoriated rash. This is most over to the extremities with some involvement of the trunk. There are multiple areas with linear distribution and some vesicles. There is no involvement of the hands. There is no burrows or interdigital webspace involvement. She does appear to have a secondary cellulitis to the posterior right knee where there was well confluent erythema, tenderness and serosanguineous drainage. Head: Atraumatic. Neck: No JVD. Eye: Normal conjunctiva. Ears, Nose, Mouth, and Throat: Moist mucous membranes. Cardiovascular: Strong distal pulses. Chest wall: Respiratory: Respirations are nonlabored. Back: Normal range of motion. Musculoskeletal: Normal ROM with no gross deformity. Gastrointestinal: Urological: Neurological: Awake and alert. No focal deficits. Follows commands. Psychiatric: Cooperative. Medical Decision Making Patient's exam is consistent with contact dermatitis, likely poison cale as it began after she was outside pulling weeds and the rash does have a linear distribution. She also appears to be developing a secondary cellulitis behind the right knee with tenderness and drainage. She is treated with Kenalog here and discharged home with Benadryl and Keflex. She is to follow-up with her PCP. Patient was encouraged to return to the ED if symptoms worsen or change. Assessment/Plan Cellulitis (L03.90: Cellulitis, unspecified) Contact dermatitis (L25.9: Unspecified contact dermatitis, unspecified cause) Orders: cephalexin, 500 mg = 1 cap(s), Oral, TID, Take one capsule by mouth three times a day for ten days, # 30 cap(s), Refills(s) 0 diphenhydrAMINE, 1 -2 caps, Oral, TID, PRN for itching, # 30 cap(s), Refills(s) 0 triamcinolone, 40 mg = 1 mL, Susp-Inj, IntraMuscular, Once, Stop date 04/22/22 11:41:00 EDT, STAT, Start date 04/22/22 11:41:00 EDT, 04/22/22 11:41:00 EDT Disposition Plan Patient Discharge Condition Disposition: Discharged home Condition: Improved and stable Counseled: Patient and/or family were counseled to workup, results, treatment plan and follow-up recommendations Discharge Prescription List Prescriptions Benadryl 25 mg Cap, 1 -2 caps, Oral, TID, PRN Keflex 500 mg Cap, 500 mg= 1 cap(s), Oral, TID Follow-up With When Contact Information DARRON MCMILLAN In 3 days 04/25/2022 EDT Additional Instructions: Patient Education Contact Dermatitis Cellulitis, Adult Attestation Patient seen and evaluated by the physician infertility medical assistant. Attending physician was present in the emergency department and supervised care. This visit was performed by both the physician and an APC. I performed all aspects of the MDM as documented. This report was transcribed using voice recognition software. Every effort was made to ensure accuracy, however, inadvertently computerized jackspooler mistakes may be present. Appropriate healthcare PPE was used in evaluating this patient. The patient was placed in a mask. The healthcare provider was wearing mask, gloves, and utilizing proper hand hygiene. All equipment was properly cleansed. Problem List/Past Medical History Ongoing No qualifying data Historical No qualifying data Medications Inpatient Kenalog 40 mg Injection, 40 mg= 1 mL, IntraMuscular, Once Home Benadryl 25 mg Cap, 1 -2 caps, Oral, TID, PRN Keflex 500 mg Cap, 500 mg= 1 cap(s), Oral, TID Allergies No Known Medication Allergies Lab Results No qualifying data available. Diagnostic Results No qualifying data available. Normal [facility] Comment on above: Result Comment: Elec tronically Signed By: Keenan Charles PA-C\.br\Date and Time Signed: 04/22/22 11:45 EDT\.br\Electronically Co-Signed By: Philippe Rice DO\.br\Date and Time Co-Signed: 04/23/22 07:13 EDT Consent for Treatmenton 08-0 Consent for Treatment [id number] .00CD:127 Normal [facility] Discharge Instructionson Discharge Instructions [id number] 1.00CD:127 Normal [facility] ED Clinical Summaryon 2021 ED Clinical Summary [place] [id number] ED Clinical Summary Person Information Name: NISA ARSHAD [facility] Age: 42 Years : 1980 Sex: Female Language: Tajik PCP: DARRON MCMILLAN DO Marital Status: Single Visit Id: Visit Reason: Rash; RASH Speciality: Acuity: 4 Enc Type: Emergency Med Service: Emergency Arrival: 04/22/2022 11:32:43 Discharge: 04/22/2022 12:02:01 LOS: 000 00:30 Checkin: 04/22/2022 11:32:43 Checkout: 04/22/2022 12:02:01 Dispo Type: Home (Routine DC) EVENTS: Event Name Event Status Request Date/Time Start Date/Time Complete Date/Time Arrive Complete 04/22/2022 11:32:43 04/22/2022 11:32:43 04/22/2022 11:32:43 Document Home Meds Request 04/22/2022 11:32:43 Triage Complete 04/22/2022 11:32:43 04/22/2022 11:40:08 04/22/2022 11:40:08 Bed Assign Complete 04/22/2022 11:35:23 04/22/2022 11:35:23 04/22/2022 11:35:23 Dr Exam Complete 04/22/2022 11:35:23 04/22/2022 11:36:45 04/22/2022 11:36:45 RN Exam Request 04/22/2022 11:35:23 Registration Complete 04/22/2022 11:36:45 04/22/2022 11:39:36 04/22/2022 11:39:36 Dr Exam Complete 04/22/2022 11:37:00 04/22/2022 11:37:00 04/22/2022 11:37:00 Reg Complete Request 04/22/2022 11:39:36 Reg Bed Request Complete 04/22/2022 11:39:36 04/22/2022 11:39:36 04/22/2022 11:39:36 Meds Admin Complete 04/22/2022 11:41:09 04/22/2022 11:59:24 Discharge Complete 04/22/2022 11:41:14 04/22/2022 12:02:06 04/22/2022 12:02:06 Transfer Complete 04/22/2022 12:02:06 04/22/2022 12:02:06 04/22/2022 12:02:06 ADDRESS: [address] [place] [address] [place] [id number] PHYS DOC NOTES: MEDICAL INFORMATION: Prescriptions Given: New Medications Printed Prescriptions cephalexin (Keflex 500 mg Cap) 1 Capsules By Mouth 3 times a day. Take one capsule by mouth three times a day for ten days. Refills: 0. diphenhydrAMINE (Benadryl 25 mg Cap) 1 -2 caps By Mouth 3 times a day as needed for itching. Refills: 0. PATIENT EDUCATION INFORMATION: Instructions: Contact Dermatitis; Cellulitis, Adult Follow up: With: Address: When: DARRON MCMILLAN In 3 days 04/25/2022 DIAGNOSIS: Cellulitis; Contact dermatitis Normal [facility] ED Patient Education Noteon 04-22-2022 ED Patient Education Note Dermatology Contact Dermatitis Dermatitis is redness, soreness, and swelling (inflammation) of the skin. Contact dermatitis is a reaction to certain substances that touch the skin. Many different substances can cause contact dermatitis. There are two types of contact dermatitis: ? Irritant contact dermatitis. This type is caused by something that irritates your skin, such as having dry hands from washing them too often with soap. This type does not require previous exposure to the substance for a reaction to occur. This is the most common type. ? Allergic contact dermatitis. This type is caused by a substance that you are allergic to, such as poison cale. This type occurs when you have been exposed to the substance (allergen) and develop a sensitivity to it. Dermatitis may develop soon after your first exposure to the allergen, or it may not develop until the next time you are exposed and every time thereafter. What are the causes? Irritant contact dermatitis is most commonly caused by exposure to: ? Makeup. ? Soaps. ? Detergents. ? Bleaches. ? Acids. ? Metal salts, such as nickel. Allergic contact dermatitis is most commonly caused by exposure to: ? Poisonous plants. ? Chemicals. ? Jewelry. ? Latex. ? Medicines. ? Preservatives in products, such as clothing. What increases the risk? You are more likely to develop this condition if you have: ? A job that exposes you to irritants or allergens. ? Certain medical conditions, such as asthma or eczema. What are the signs or symptoms? Symptoms of this condition may occur on your body anywhere the irritant has touched you or is touched by you. ? Symptoms include: ? Dryness or flaking. ? Redness. ? Cracks. ? Itching. ? Pain or a burning feeling. ? Blisters. ? Drainage of small amounts of blood or clear fluid from skin cracks. With allergic contact dermatitis, there may also be swelling in areas such as the eyelids, mouth, or genitals. How is this diagnosed? This condition is diagnosed with a medical history and physical exam. ? A patch skin test may be performed to help determine the cause. ? If the condition is related to your job, you may need to see an occupational health physician. How is this treated? This condition is treated by checking for the cause of the reaction and protecting your skin from further contact. Treatment may also include: ? Steroid creams or ointments. Oral steroid medicines may be needed in more severe cases. ? Antibiotic medicines or antibacterial ointments, if a skin infection is present. ? Antihistamine lotion or an antihistamine taken by mouth to ease itching. ? A bandage (dressing). Follow these instructions at home: Skin care ? Moisturize your skin as needed. ? Apply cool compresses to the affected areas. ? Try applying baking soda paste to your skin. Stir water into baking soda until it reaches a paste-like consistency. ? Do not scratch your skin, and avoid friction to the affected area. ? Avoid the use of soaps, perfumes, and dyes. Medicines ? Take or apply vjlt-khc-hbfcpwg and prescription medicines only as told by your health care provider. ? If you were prescribed an antibiotic medicine, take or apply the antibiotic as told by your health care provider. Do not stop using the antibiotic even if your condition improves. Bathing ? Try taking a bath with: ? Epsom salts. Follow the instructions on the packaging. You can get these at your local pharmacy or grocery store. ? Baking soda. Pour a small amount into the bath as directed by your health care provider. ? Colloidal oatmeal. Follow the instructions on the packaging. You can get this at your local pharmacy or grocery store. ? Bathe less frequently, such as every other day. ? Bathe in lukewarm water. Avoid using hot water. Bandage care ? If you were given a bandage (dressing), change it as told by your health care provider. ? Wash your hands with soap and water before and after you change your dressing. If soap and water are not available, use hand manager transmission. General instructions ? Avoid the substance that caused your reaction. If you do not know what caused it, keep a journal to try to track what caused it. Write down: ? What you eat. ? What cosmetic products you use. ? What you drink. ? What you wear in the affected area. This includes jewelry. ? Check the affected areas every day for signs of infection. Check for: ? More redness, swelling, or pain. ? More fluid or blood. ? Warmth. ? Pus or a bad smell. ? Keep all follow-up visits as told by your health care provider. This is important. Contact a health care provider if: ? Your condition does not improve with treatment. ? Your condition gets worse. ? You have signs of infection such as swelling, tenderness, redness, soreness, or warmth in the affected area. ? You have a fever. ? You have new symptoms. Get help right away if: (more content not included)... Normal [facility] ED Patient Summaryon 022 ED Patient Summary [address] [address] Patient Discharge Instructions Person Information Name: NISA ARSHAD Age: 42 Years Arrival Date: 04/22/2022 11:32:43 Discharge Diagnosis: Cellulitis; Contact dermatitis Primary Care Physician: DARRON MCMILLAN DO Provider Information Primary Provider: Philippe Rice DO [facility] Consultant:Keenan Charles PA-C The exam and treatment you received in the Emergency Department were for an urgent problem and are not intended as complete care. It is important that you follow up with a doctor, nurse practitioner, or physician?s infertility medical assistant for ongoing care. If your symptoms become worse or you do not improve as expected and you are unable to reach your usual health care provider, you should return to the Emergency Department. We are available 24 hours a day. NISA ARSHAD has been given the following list of patient education materials, prescriptions and follow-up instructions: Follow-up Instructions: With: Address: When: DARRON MCMILLAN In 3 days 04/25/2022 In the event that this physician does not participate in your insurance network, please consult with your insurance company to find a nearby participating provider. Patient Education Materials: Contact Dermatitis; Cellulitis, Adult A MESSAGE TO ALL PATIENTS REGARDING OPIOIDS PRESCRIPTION OPIOIDS: WHAT YOU NEED TO KNOW Prescription opioids can be used to help relieve fftptduf-ae-bkufzs pain and are often prescribed following a surgery or injury, or for certain health conditions. These medications can be an important part of the treatment but also come with serious risks. It is important to work with your healthcare provider to make sure you are getting the safest, most effective care. WHAT ARE THE RISKS AND SIDE EFFECTS OF OPIOID USE? Prescription opioids carry serious risks of addiction and overdose, especially with prolonged use. An opioid overdose, often marked by slowed breathing, can cause sudden . The use of prescription opioids can have a number of side effects as well, even when taken as directed: ? Tolerance?meaning you might need to take more of the medication for the same pain relief ? Physical dependence?meaning you have symptoms of withdrawal when a medication is stopped ? Increased sensitivity to pain ? Constipation ? Nausea, vomiting, and dry mouth ? Sleepiness and dizziness ? Confusion ? Depression ? Low levels of testosterone that can result in lower sex drive, energy, and strength ? Itching and sweating RISKS ARE GREATER WITH: ? History of drug misuse, substance use disorder, or overdose ? Mental health conditions (such as depression or anxiety) ? Sleep apnea ? Older age (65 years and older) ? Avoid alcohol while taking prescription opioids. Also, unless specifically advised by your health care provider, medications to avoid include: ? Benzodiazepines (such as Xanax or Valium) ? Muscle relaxants (such as Soma or Flexeril) ? Hypnotics (such as Ambien or Lunesta) ? Other prescription opioids KNOW YOUR OPTIONS Talk to your health care provider about ways to manage your pain that don?t involve prescription opioids. Some of these options may actually work better and have fewer risks and side effects. Options may include: ? Pain relievers such as acetaminophen, ibuprofen, and naproxen ? Some medication that are also used for depression or seizures ? Physical therapy and exercise ? Cognitive behavioral therapy, a psychological, goal-directed approach, in which patients learn how to modify physical, behavioral, and emotional triggers of pain and stress. IF YOU ARE PRESCRIBED OPIOIDS FOR PAIN: ? Never take opioids in greater amounts or more often than prescribed. ? Follow up with your primary health care provider. o Work together to create a plan on how to manage your pain. o Talk about ways to help manage your pain that don?t involve prescription opioids. o Talk about any and all concerns and side effects. ? Help prevent misuse and abuse o Never sell or share prescription opioids. o Never use another person?s prescription opioids. ? Store prescription opioids in a secure place and out of reach of others (this may include visitors, children, friends, and family). ? Safely dispose of unused prescription opioids: Find your community drug take-back program or your pharmacy mail-back program, or flush them down the toilet, following guidance from the Food and Drug Administration (www.fda.gov/Drugs/Re sourcesForYou). ? Visit www.cdc.gov/drugoverd ose to learn about the risks of opioids abuse and overdose. ? If you believe you may be struggling with addiction, tell your health healthcare administrative assistant and ask for guidance or call SAMHSA?S National Helpline at 7-826-366-HELP. v Source: US Department of Health and Human Services/[facility] (more content not included)... Normal [facility] Vital Signs Date Time Vital Sign Value Performing Clinician Nicole alonzo 04-22-2022 11:35-0400 Body temperature 97.88 [degF] Philippe Rice [facility] 04-22-2022 11:35-0400 Diastolic blood pressure 89 mm[Hg] Philippe Rice [facility] 04-22-2022 11:35-0400 Heart rate 93 /min Philippe Krystal [facility] 04-22-2022 11:35-0400 SaO2% (BldA) [Mass fraction] 100 % Philippe Rice [facility] 04-22-2022 11:35-0400 Systolic blood pressure 142 mm[Hg] Philippe Rice [facility] Encounters Encounter Date Encounter Type Care Provider Facility Start: 12-16-2023 End: 12-16-2023 Emergency department patient visit [facility] Start: 12-10-2023 End: 12-11-2023 ambulatory Darron Mcmillan Facility: [facility] Start: 12-03-2023 ambulatory Darron Mcmillan Facili ty: [facility] Start: 11-26-2023 End: 11-27-2023 ambulatory Darron Mcmillan Facility: [facility] Start: 03-17-2023 End: 03-17-2023 Emergency department patient visit Magdi Gutierrez Facility:[facility] Start: 04-22-2022 End: 04-22-2022 Emergency department patient visit Philippe Rice [facility] Payers Date Payer Category Payer Medicaid [id number] 2023 Self-pay 2022 Unknown [id number] 1980 Unknown [id number] [id number] [id number] 1980 Unknown [id number] 2.16.8 [id number] 1980 Unknown [id number] 2.16.8 [id number] 1980 Unknown [id number] 2.16.8 [id number] Unknown [id number] 2.16.8 [id number] Social History Date Type Detail Facility Tobacco smoking status No Smoking Status Entered [facility] Sex Assigned At Female [facility] Functional Status Date Assessment Result Facility 04-22-2022 Functional Status N/A [facility] Medication management note 12-22-2023 Note Date & Type Note Facility 12-22-2023 Note - From: Anjali Solis RN ([facility] ([facility])) To: Darron Mcmillan DO; Sent: 12/22/2023 07:33:26 EDT Subject: FW: Medication Management Due Date/Time: 12/22/2023 19:27:00 EDT Caller Name: NISA ARSHAD; Caller Number: , From: [id number] To: Darron Mcmillan DO Sent: December 19, 2023 6:27:18 PM CDT Subject: Medication Management Due: December 20, 2023 12:03:56 AM CDT On Hold Pending Signature Drug: gabapentin (gabapentin 300 mg oral capsule), 1 cap(s) Oral BID Quantity: 60 cap(s) Days Supply: 30 Refills: 0 Substitutions Allowed Notes from Pharmacy: Dispensed Drug: gabapentin (gabapentin 300 mg oral capsule), take 1 capsule by mouth twice a day Quantity: 60 cap(s) Days Supply: 30 Refills: 0 Substitutions Allowed Notes from Pharmacy: Submitted: Order:gabapentin (gabapentin 300 mg oral capsule) 1 cap(s) PO BID Qty: 60 cap(s) Days Supply: 30 Refills: 2 Substitutions Allowed Route To Pharmacy - [facility] #[id number] [facility] reviewed 12/19/20 Signed by Darron Mcmillan DO 12/22/2023 07:34:00 [facility] Medication management note 09-16-2023 Note Date & Type Note Facility 09-16-2023 Note - From: Anjali Solis RN ([facility] (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 Subject: Medication Management Due: September 12, 2023 12:09:29 AM NEW CAR INSPECTOR On Hold Pending Signature Dispensed Drug: gabapentin (gabapentin 300 mg oral capsule), TAKE 1 CAPSULE BY MOUTH TWICE A DAY Quantity: 60 cap(s) Days Supply: 30 Refills: 0 Substitutions Allowed Notes from Pharmacy: Submitted: Order:gabapentin (gabapentin 300 mg oral capsule) 1 cap(s) PO BID Qty: 60 cap(s) Days Supply: 30 Refills: 2 Substitutions Allowed Route To Pharmacy - [id number] [facility] reviewed 12/19/20 Signed by Darron Mcmillan DO 09/16/2023 06:41:00 [facility] Medication management note 06-02-2023 Note Date & Type Note Facility 06-02-2023 Note - From: Anjali Solis ([facility] ([facility])) To: Carissa [facility] ([facility]); Sent: 05/30/2023 11:50:43 EDT Subject: FW: Medication Management Due Date/Time: 05/31/2023 11:40:00 EDT Caller Name: NISA ARSHAD; Caller Number: , From: [facility] #[id number] To: Darron Mcmillan DO Sent: May 30, 2023 10:40:49 AM CDT Subject: Medication Management Due: May 31, 2023 12:10:16 AM CDT On Hold Pending Signature Drug: gabapentin (gabapentin 300 mg oral capsule), 1 cap(s) PO BID Quantity: 60 cap(s) Days Supply: 30 Refills: 1 Substitutions Allowed Notes from Pharmacy: Dispensed Drug: gabapentin (gabapentin 300 mg oral capsule), take 1 capsule by mouth twice a day Quantity: 60 cap(s) Days Supply: 30 Refills: 0 Substitutions Allowed Notes from Pharmacy: [facility]: Shel[facility] ([facility] To: Molly Ferrer CNP; Sent: 05/30/2023 13:08:13 EDT Subject: FW: Medication Management Due Date/Time: 05/31/2023 11:40:00 EDT Caller Name: NISA ARSHAD; Caller Number: H , M From: Molly Ferrer APRN, CNP To: [facility] ([facility]); Sent: 06/01/2023 19:35:06 EDT Subject: RE: Medication Management Caller Name: NISA ARSHAD; Caller Number: H , M Dr Mcmillan has been given this lady her meds, I would send to him She will probably need an appt From: Greer Guevara LPN ([facility] ([facility])) To: [facility] ([facility]); Sent: 06/02/2023 08:17:23 EDT Subject: FW: Medication Management Caller Name: NISA ARSHAD; Caller Number: H , M From: Anjali Solis ([facility] ([facility])) To: Darron Mcmillan DO; Sent: 06/02/2023 08:47:09 EDT Subject: FW: Medication Management Caller Name: NISA ARSHAD; Caller Number: H , M Submitted: Order:gabapentin (gabapentin 300 mg oral capsule) 1 cap(s) PO BID Qty: 60 cap(s) Days Supply: 30 Refills: 2 Substitutions Allowed Route To Pharmacy - [facility] #[id number] [facility] reviewed 12/19/20 Signed by Darron Mcmillan DO 06/02/2023 08:47:00 EDT [facility] Medication management note 02-28-2023 Note Date & Type Note Facility 02-28-2023 Note - From: Anjali Solis ([facility] ([facility])) To: Darron Mcmillan DO; Sent: 02/28/2023 07:55:12 EDT Subject: FW: Medication Management Due Date/Time: 02/28/2023 18:31:00 EDT Caller Name: NISA ARSHAD; Caller Number: H , M Entered by Anjali Solis on February 28, 2023 07:55:06 EDT PER [facility] LAST FILLED 01/29/23 FOR #60 LAST OV 02/19/22 NEXT OV N/A NO CSA From: [id number] To: Darron Mcmillan DO Sent: February 27, 2023 5:31:23 PM CDT Subject: Medication Management Due: February 28, 2023 12:32:10 AM CDT On Hold Pending Signature Drug: gabapentin (gabapentin 300 mg oral capsule), 1 cap(s) PO BID Quantity: 60 cap(s) Days Supply: 30 Refills: 1 Substitutions Allowed Notes from Pharmacy: Dispensed Drug: gabapentin (gabapentin 300 mg oral capsule), take 1 capsule by mouth twice a day Quantity: 60 cap(s) Days Supply: 30 Refills: 0 Substitutions Allowed Notes from Pharmacy: Submitted: Order:gabapentin (gabapentin 300 mg oral capsule) 1 cap(s) PO BID Qty: 60 cap(s) Days Supply: 30 Refills: 2 Substitutions Allowed Route To Pharmacy - [facility] #[id number] [facility] reviewed 12/19/20 Signed by Darron Mcmillan DO 02/28/2023 08:05:00 EDT [facility] Discharge instructions 04-22-2022 Note Date & Type Note Facility 04-22-2022 Hospital Discharg e instructions Patient Education 04/22/2022 12:02:06 Contact Dermatitis Contact Dermatitis Dermatitis is redness, soreness, and swelling (inflammation) of the skin. Contact dermatitis is a reaction to certain substances that touch the skin. Many different substances can cause contact dermatitis. There are two types of contact dermatitis: Irritant contact dermatitis. This type is caused by something that irritates your skin, such as having dry hands from washing them too often with soap. This type does not require previous exposure to the substance for a reaction to occur. This is the most common type. Allergic contact dermatitis. This type is caused by a substance that you are allergic to, such as poison cale. This type occurs when you have been exposed to the substance (allergen) and develop a sensitivity to it. Dermatitis may develop soon after your first exposure to the allergen, or it may not develop until the next time you are exposed and every time thereafter. What are the causes? Irritant contact dermatitis is most commonly caused by exposure to: Makeup. Soaps. Detergents. Bleaches. Acids. Metal salts, such as nickel. Allergic contact dermatitis is most commonly caused by exposure to: Poisonous plants. Chemicals. Jewelry. Latex. Medicines. Preservatives in products, such as clothing. What increases the risk? You are more likely to develop this condition if you have: A job that exposes you to irritants or allergens. Certain medical conditions, such as asthma or eczema. What are the signs or symptoms? Symptoms of this condition may occur on your body anywhere the irritant has touched you or is touched by you. Symptoms include: ?Dryness or flaking. ?Redness. ?Cracks. ?Itching. ?Pain or a burning feeling. ?Blisters. ?Drainage of small amounts of blood or clear fluid from skin cracks. With allergic contact dermatitis, there may also be swelling in areas such as the eyelids, mouth, or genitals. How is this diagnosed? This condition is diagnosed with a medical history and physical exam. A patch skin test may be performed to help determine the cause. If the condition is related to your job, you may need to see an occupational health physician. How is this treated? This condition is treated by checking for the cause of the reaction and protecting your skin from further contact. Treatment may also include: Steroid creams or ointments. Oral steroid medicines may be needed in more severe cases. Antibiotic medicines or antibacterial ointments, if a skin infection is present. Antihistamine lotion or an antihistamine taken by mouth to ease itching. A bandage (dressing). Follow these instructions at home: Skin care Moisturize your skin as needed. Apply cool compresses to the affected areas. Try applying baking soda paste to your skin. Stir water into baking soda until it reaches a paste-like consistency. Do not scratch your skin, and avoid friction to the affected area. Avoid the use of soaps, perfumes, and dyes. Medicines Take or apply pndd-kbg-upagqzg and prescription medicines only as told by your health care provider. If you were prescribed an antibiotic medicine, take or apply the antibiotic as told by your health care provider. Do not stop using the antibiotic even if your condition improves. Bathing Try taking a bath with: ?Epsom salts. Follow the instructions on the packaging. You can get these at your local pharmacy or grocery store. ?Baking soda. Pour a small amount into the bath as directed by your health care provider. ?Colloidal oatmeal. Follow the instructions on the packaging. You can get this at your local pharmacy or grocery store. Bathe less frequently, such as every other day. Bathe in lukewarm water. Avoid using hot water. Bandage care If you were given a bandage (dressing), change it as told by your health care provider. Wash your hands with soap and water before and after you change your dressing. If soap and water are not available, use hand manager transmission. General instructions Avoid the substance that caused your reaction. If you do not know what caused it, keep a journal to try to track what caused it. Write down: ?What you eat. ?What cosmetic products you use. ?What you drink. ?What you wear in the affected area. This includes jewelry. Check the affected areas every day for signs of infection. Check for: ?More redness, swelling, or pain. ?More fluid or blood. ?Warmth. ?Pus or a bad smell. Keep all follow-up visits as told by your health care provider. This is important. Contact a health care provider if: Your condition does not improve with treatment. Your condition gets worse. You have signs of infection such as swelling, tenderness, redness, soreness, or warmth in the affected area. You have a fever. You have new symptoms. Get help right away if: You have a severe headache, neck pain, or neck stiffness. You vomit. You feel very sleepy. You notice red streaks coming from the affected area. Your bone or joint underneath the affected area becomes painful after the skin has healed. The affected area turns darker. You have difficulty breathing. Summary Dermatitis is redness, soreness, and swelling (inflammation) of the skin. Contact dermatitis is a reaction to certain substances that touch the skin. Symptoms of this condition may occur on your body anywhere the irritant has touched you or is touched by you. This condition is treated by figuring out what caused the reaction and protecting your skin from further contact. Treatment may also include medicines and skin care. Avoid the substance that caused your reaction. If you do not know what caused it, keep a journal to try to track what caused it. Contact a health care provider if your condition gets worse or you have signs of infection such as swelling, tenderness, redness, soreness, or warmth in the affected area. This information is not intended to replace advice given to you by your health care provider. Make sure you discuss any questions you have with your health care provider. Document Released: 09/05/2001 Document Revised: 12/29/2019 Document Reviewed: 03/24/2019 [employer] Patient Education 2020 [employer] 04/22/2022 12:02:06 Cellulitis, Adult Cellulitis, Adult Cellulitis is a skin infection. The infected area is usually warm, red, swollen, and tender. This condition occurs most often in the arms and lower legs. The infection can travel to the muscles, blood, and underlying tissue and become serious. It is very important to get treated for this condition. What are the causes? Cellulitis is caused by bacteria. The bacteria enter through a break in the skin, such as a cut, burn, insect bite, open sore, or crack. What increases the risk? This condition is more likely to occur in people who: Have a weak body defense system (immune system). Have open wounds on the skin, such as cuts, hernandez, bites, and scrapes. Bacteria can enter the body through these open wounds. Are older than 60 years of age. Have diabetes. Have a type of long-lasting (chronic) liver disease (cirrhosis) or kidney disease. Are obese. Have a skin condition such as: ?Itchy rash (eczema). ?Slow movement of blood in the veins (venous stasis). ?Fluid buildup below the skin (edema). Have had radiation therapy. Use IV drugs. What are the signs or symptoms? Symptoms of this condition include: Redness, streaking, or spotting on the skin. Swollen area of the skin. Tenderness or pain when an area of the skin is touched. Warm skin. A fever. Chills. Blisters. How is this diagnosed? This condition is diagnosed based on a medical history and physical exam. You may also have tests, including: Blood tests. Imaging tests. How is this treated? Treatment for this condition may include: Medicines, such as antibiotic medicines or medicines to treat allergies (antihistamines). Supportive care, such as rest and application of cold or warm cloths (compresses) to the skin. Hospital care, if the condition is severe. The infection usually starts to get better within 1 2 days of treatment. Follow these instructions at home: Medicines Take mrhd-nsb-whpxwdm and prescription medicines only as told by your health care provider. If you were prescribed an antibiotic medicine, take it as told by your health care provider. Do not stop taking the antibiotic even if you start to feel better. General instructions Drink enough fluid to keep your urine pale yellow. Do not touch or rub the infected area. Raise (elevate) the infected area above the level of your heart while you are sitting or lying down. Apply warm or cold compresses to the affected area as told by your health care provider. Keep all follow-up visits as told by your health care provider. This is important. These visits let your health care provider make sure a more serious infection is not developing. Contact a health care provider if: You have a fever. Your symptoms do not begin to improve within 1 2 days of starting treatment. Your bone or joint underneath the infected area becomes painful after the skin has healed. Your infection returns in the same area or another area. You notice a swollen bump in the infected area. You develop new symptoms. You have a general ill feeling (malaise) with muscle aches and pains. Get help right away if: Your symptoms get worse. You feel very sleepy. You develop vomiting or diarrhea that persists. You notice red streaks coming from the infected area. Your red area gets larger or turns dark in color. These symptoms may represent a serious problem that is an emergency. Do not wait to see if the symptoms will go away. Get medical help right away. Call your local emergency services (911 in the [place] Do not drive yourself to the hospital. Summary Cellulitis is a skin infection. This condition occurs most often in the arms and lower legs. Treatment for this condition may include medicines, such as antibiotic medicines or antihistamines. Take pmlm-oic-gghwghp and prescription medicines only as told by your health care provider. If you were prescribed an antibiotic medicine, do not stop taking the antibiotic even if you start to feel better. Contact a health care provider if your symptoms do not begin to improve within 1 2 days of starting treatment or your symptoms get worse. Keep all follow-up visits as told by your health care provider. This is important. These visits let your health care provider make sure that a more serious infection is not developing. This information is not intended to replace advice given to you by your health care provider. Make sure you discuss any questions you have with your health care provider. Document Released: 06/18/2006 Document Revised: 01/28/2019 Document Reviewed: 01/28/2019 [employer] Patient Education 2020 [employer]. Follow Up Care 04/22/2022 11:34:55 With:DARRON MCMILLAN Address:Unknown When:04/25/2022 11:40:33 [facility] Evaluation + Plan note Note Date & Type Note Facility Evaluation + Plan note No data available for this section [facility] Progress note Note Date & Type Note Facility Progress note No data available for this section [facility] Summary Purpose Family History No Family History Records FoundNo Family History Records FoundNo Family History Records FoundNo Family History Records Found Advance Directives No Advanced Directives Records FoundNo Advanced Directives Records FoundNo Advanced Directives Records FoundNo Advanced Directives Records Found Additional Source Comments Care Team (unrecognized sect ion and content) Personnel Name: DARRON MCMILLAN DO Address: [address] [place] [address]- INFORMATION SOURCE (unrecogn ized section and content) DATE CREATED AUTHOR 04/24/2022 Jonny Gallo [facility] DATE CREATED AUTHOR AUTHOR'S ORGANIZ ATION 04/02/2023 [facility] DATE CREATED AUTHOR AUTHOR'S ORGANIZ ATION 12/17/2023 Patricia Mar [facility] DATE CREATED AUTHOR AUTHOR'S ORGANIZ ATION 12/22/2023 [facility] FOR RECORDS PERTAINING TO PATIENTS WHO ARE OR HAVE BEEN ENROLLED IN A CHEMICAL DEPENDENCY/SUBSTANCEABUSE PROGRAM, SOME INFORMATION MAY BE OMITTED. This clinical summary was aggregated from multiple sources. Caution should be exercised in using it in the provision of clinical care. This summary normalizes information from multiple sources, and as a consequence, information in this document may materially change the coding, format and clinical context of patient data. In addition, data may be omitted in some cases. CLINICAL DECISIONS SHOULD BE BASED ON THE PRIMARY CLINICAL RECORDS. [employer] [facility]. provides no warranty or guarantee of the accuracy or completeness of information in this document.
[2024-02-02] MEDS: BENZOCAINE 30 ML, lidocaine HCL 15 ML MM (08:27)
--- NOTE | 2024-02-02 08:36 | ED.GENADUL1 ---
HPI HPI - General Adult General Chief complaint: Dental/Oral Stated complaint: shortness of breath, dental pain Time Seen by Provider: 02/02/24 08:03 Source: patient Mode of arrival: walk-in Limitations: no limitations History of Present Illness HPI narrative: Patient is a 43-year-old female who is presenting to the ER with chief complaint of left lower dental pain. Patient is having pain to tooth #18. This is acute on chronic. Patient says that she has an appointment on February 12 to have her tooth extracted. Patient is having mild swelling to the left lower jaw, dental pain, patient says that she taste a foul taste/pus in her mouth. Patient was on amoxicillin a month ago. Patient has a dentist appointment next week for tooth extraction. Patient initially was triaged by Arline STORY, she was very tearful, slightly hyperventilating, admittedly having a panic attack secondary to her dental pain and situation. Patient has no trauma, no falls, no fever or chills, no difficulty breathing, no significant swelling, no vision or hearing changes, no other acute complaints. All systems are negative except as noted/marked. All systems reviewed and otherwise negative. Nurses note and vital signs reviewed and patient is not hypoxic. Nurses notes reviewed and patient is noted to be non-hypoxic. General: The patient is comfortable, alert and oriented x3, well appearing, non toxic in no apparent distress. Head: Atraumatic and normocephalic. Eyes: Normal conjunctiva ENT: The oropharynx is normal. No pharyngeal erythema, uvular edema, tonsillar exudates, asymmetry or trismus. Uvula is midline. Mouth is normal to inspection With the exception of a pain on percussion of the tooth #18 and evidence of dental caries. There is mild evidence of facial asymmetry, NO abscess formation. Floor of the mouth is soft. No tenderness in the submental or submandibular space. No tongue elevation or deviation. The patient has no evidence of periapical abscess, gingivitis, ANUG or other acute pathology. Airway is patent. Neck: The neck demonstrates normal range of motion. No meningeals signs are present. No stridor. No masses or lymphandenopathy noted. Respiratory: No acute distress, lungs are clear to auscultation, no wheezing, rhonchi, or rales noted. No stridor or retractions are noted. Cardiovascular: Regular rate and rhythm Skin: The skin exam shows no evidence of rashes Neuro: Alert and oriented x4, normal speech Lymphatic: No cervical lymphadenopathy Related Data Home Medications ?Medication ?Instructions ?Recorded ?Confirmed clonazepam 0.5 mg tablet 0.5 mg PO DAILY 02/02/24 02/02/24 gabapentin 300 mg capsule 300 mg PO Q12H 02/02/24 02/02/24 Previous Rx's ?Medication ?Instructions ?Recorded clindamycin HCl 300 mg capsule 300 mg PO Q8H 7 days #21 caps 02/02/24 Allergies Allergy/AdvReac Type Severity Reaction Status Date / Time No Known Drug Allergies Allergy Verified 10/18/23 17:29 Opioid HPI Opioid Management Most Recent Opioid Data: No Data to Display Exam Constitutional Vital Signs, click to edit/add: Last Vital Signs Pulse 102 H 02/02/24 07:47 Resp 16 02/02/24 07:47 BP 125/78 02/02/24 07:47 Pulse Ox 100 02/02/24 07:47 O2 Del Method Room Air 02/02/24 07:47 Course Vital Signs Vital signs: Vital Signs Pulse Rate 102 H 02/02/24 07:47 Respiratory Rate 16 02/02/24 07:47 Blood Pressure 125/78 02/02/24 07:47 Pulse Oximetry 100 02/02/24 07:47 Oxygen Delivery Method Room Air 02/02/24 07:47 Pulse Rate 102 H 02/02/24 07:47 Respiratory Rate 16 02/02/24 07:47 Blood Pressure 125/78 02/02/24 07:47 Pulse Oximetry 100 02/02/24 07:47 Oxygen Delivery Method Room Air 02/02/24 07:47 Medical Decision Making MDM Narrative Medical decision making narrative: Patient was placed on clindamycin prophylactically secondary to patient tasting foul taste or pus in her mouth. Patient has mild swelling. Education was done at bedside and using ice 20 minutes on, 20 minutes off, not using heat. Patient is also to alternate Tylenol and Motrin, also was given prescription for Orajel. Patient is to call her dentist today and follow-up to see if her appointment for dental extraction can be moved up from next week. Patient understands this, the question of discharge. Patient just got off work and is going to bed Discharge Plan Discharge Stand Alone Forms: Portal Instructions Chief Complaint: Dental/Oral Clinical Impression: Atypical face pain, Dental caries, Atypical toothache Patient Disposition: Home, Self-Care Time of Disposition Decision: 08:25 Condition: Fair Prescriptions / Home Meds: New clindamycin HCl 300 mg capsule 300 mg PO Q8H 7 Days Qty: 21 0RF No Action clonazepam 0.5 mg tablet 0.5 mg PO DAILY gabapentin 300 mg capsule 300 mg PO Q12H Print Language: Nauruan Instructions: Toothache (ED), Mouth Care (ED), Tooth Extraction (DC), Atypical Facial Pain (ED) Additional Instructions: Call your dentist today, follow-up and see if they can move your appointment from February 12 sooner this week to have your tooth extracted. Do not use heat, use ice 20 minutes on, 20 minutes off to help with pain and swelling Finish antibiotic, follow-up with your dentist. Alternate Tylenol and Motrin every 4 hours to help with pain along with ice, dental analgesia, and the antibiotic all to help with pain, swelling and decreased Referrals: BOB HUMPHRIES [Primary Care Provider] - 1 week Discharge Date/Time: 02/02/24 08:28
== END 2024-02-02 08:28 | disposition home or self-care (01) ==
PROVIDERS: Emergency Provider Emergency Medicine; PCP Family Medicine
DX: K02.9 Dental caries, unspecified (principal); G50.1 Atypical facial pain; K08.89 Other specified disorders of teeth and supporting structures
CPT/HCPCS: 99283

== ENCOUNTER 2024-11-16 14:28 | Emergency (ER) | payer OTHER, SELFPAY ==
[2024-11-16 14:31] VITALS: BP 140/94; PULSE 99; TEMP 36.9; O2SAT 99; BMI 26.6
--- OUTSIDE RECORDS SUMMARY | 2024-11-16 14:47 | XMS_ITS | CCD ---
Author Organization [facility] Inform ion Partnership [facility] Care Team Providers Care Lighting Engineering Technician Name Role Phone DARRON MCMILLAN Primary Care Physician [phone] Magdi Gutierrez Admitting Unavailable Magdi Gutierrez Attending [...] Propensity to adverse reactions to drug (disorder) [facility] Repository Medications Current Medications Medication Drug Class(es) [...] Test Name Value Interpretation Reference Range Facil ity Outside Recordson 02-03-2024 Outside Records [id number] 2 [id number] Normal [facility] Basic Metabolic Profon 12-15 Anion gap [Moles/Vol] 10 mmol/L Normal 9-17 [facility] Comment on above: Performed By: #### B MP, CDP, LIP, HCG, LIVP #### [facility] [address] [place] [address] [place] [address] Farm Machinery Mechanic: Haris Baker MD BUN/CRE Ratio 10 Normal 9-20 [facility] Comment on above: Performed By: #### B MP, CDP, LIP, HCG, LIVP #### [facility] [address] [place] [address] [place] [address] Farm Machinery Mechanic: Haris Baker MD Calcium [Mass/Vol] 9.0 mg/dL Normal 8.6-10.4 [facility] Comment on above: Performed By: #### B MP, CDP, LIP, HCG, LIVP #### [facility] [address] [place] [address] Farm Machinery Mechanic: Haris Baker MD Chloride [Moles/Vol] 102 mmol/L Normal 98-107 [facility] Comment on above: Performed By: #### B MP, CDP, LIP, HCG, LIVP #### [facility] [address] [place] [address] [place] [address] Farm Machinery Mechanic: Haris Baker MD CO2 [Moles/Vol] 25 mmol/L Normal 20-31 [facility] Comment on above: Performed By: #### B MP, CDP, LIP, HCG, LIVP #### [facility] [address] [place] [address] Farm Machinery Mechanic: Haris Baker MD Creatinine [Mass/Vol] 0.7 mg/dL Normal 0.5-0.9 [facility] Comment on above: Performed By: #### B MP, CDP, LIP, HCG, LIVP #### [facility] [address] [place] [address] Farm Machinery Mechanic: Haris Baker MD GFR/1.73 sq M.predicted among non-blacks MDRD (S/P/Bld) [Vol rate/Area] mL/min/{1.73_m2} Normal >60 [facility] Comment on above: Result Comment: These results [...] B MP, CDP, LIP, HCG, LIVP #### [facility] [address] [place] [address] Farm Machinery Mechanic: Haris Baker MD Glucose [Mass/Vol] 138 mg/dL High 70-99 [facility] Comment on above: Performed By: #### B MP, CDP, LIP, HCG, LIVP #### [facility] [address] [place] [address] Farm Machinery Mechanic: Haris Baker MD Potassium [Moles/Vol] 3.4 mmol/L Low 3.7-5.3 [facility] Comment on above: Performed By: #### B MP, CDP, LIP, HCG, LIVP #### [facility] [address] [place], [place] [id number] Farm Machinery Mechanic: Haris Baker MD Sodium [Moles/Vol] 137 mmol/L Normal 135-144 [facility] Comment on above: Performed By: #### B MP, CDP, LIP, HCG, LIVP #### [facility] [address] [place], [facility] Farm Machinery Mechanic: Haris Baker MD Urea nitrogen [Mass/Vol] 7 mg/dL Normal 6-20 [facility] Comment on above: Performed By: #### B MP, CDP, LIP, HCG, LIVP #### [facility] [address] [place] [id number] Farm Machinery Mechanic: Haris Baker MD CBC with Diffon 12-16-2023 Abs. Basophil 0.05 k/uL Normal 0.00-0.20 [facility] Comment on above: Performed By: #### B MP, CDP, LIP, HCG, LIVP #### [address] [place], [facility] [address] Farm Machinery Mechanic: Haris Baker MD Abs.Imm.Granulocyte <0.03 Normal 0.00-0.30 [facility] Comment on above: Performed By: #### B MP, CDP, LIP, HCG, LIVP #### [facility] [address] [place] [address] [place], [facility] [address] Farm Machinery Mechanic: Haris Baker MD Abs.Neutrophil (Seg) 5.73 k/uL Normal 1.50-8.10 [facility] Comment on above: Performed By: #### B MP, CDP, LIP, HCG, LIVP #### [facility] [address] [place], [place] [address]83 Farm Machinery Mechanic: Haris Baker MD Basophils/100 WBC (Bld) 1 % Normal 0-2 [facility] Comment on above: Performed By: #### B MP, CDP, LIP, HCG, LIVP #### [address] [place], [place] [address]3 Farm Machinery Mechanic: Haris Baker MD Eosinophils (Bld) [#/Vol] 0.19 10*3/uL Normal 0.00-0.44 [facility] Comment on above: Performed By: #### B MP, CDP, LIP, HCG, LIVP #### [address] [place], [place] [address]83 Farm Machinery Mechanic: Haris Baker MD Eosinophils/100 WBC (Bld) 2 % Normal 1-4 [facility] Comment on above: Performed By: #### B MP, CDP, LIP, HCG, LIVP #### [address] [place], [facility] Farm Machinery Mechanic: Haris Baker MD Erythrocyte distribution width (RBC) [Ratio] 12.5 % Normal 11.8-14.4 [facility] Comment on above: Performed By: #### B MP, CDP, LIP, HCG, LIVP #### [address] [place], [facility] Farm Machinery Mechanic: Haris Baker MD Hematocrit (Bld) [Volume fraction] 44.6 % Normal 36.3-47.1 [facility] Comment on above: Performed By: #### B MP, CDP, LIP, HCG, LIVP #### [address] [place], [facility] [address] Farm Machinery Mechanic: Haris Baker MD Hemoglobin (Bld) [Mass/Vol] 14.7 g/dL Normal 11.9-15.1 [facility] Comment on above: Performed By: #### B MP, CDP, LIP, HCG, LIVP #### [address] [place], [place] [id number] Farm Machinery Mechanic: Haris Baker MD Immature granulocytes/100 WBC (Bld) 0 % Normal 0 [facility] Comment on above: Performed By: #### B MP, CDP, LIP, HCG, LIVP #### [facility] [address] [place] [address] Dr[place], [facility] [address] Farm Machinery Mechanic: Haris Baker MD Lymphocytes (Bld) [#/Vol] 3.07 10*3/uL Normal 1.10-3.70 [facility] Comment on above: Performed By: #### B MP, CDP, LIP, HCG, LIVP #### [address] [place], [facility] [address] Farm Machinery Mechanic: Haris Baker MD Lymphocytes/100 WBC (Bld) 32 % Normal 24-43 [facility] Comment on above: Performed By: #### B MP, CDP, LIP, HCG, LIVP #### [address] [place], [facility] [address] Farm Machinery Mechanic: Haris Baker MD MCH (RBC) [Entitic mass] 29.5 pg Normal 25.2-33.5 [facility] Comment on above: Performed By: #### B MP, CDP, LIP, HCG, LIVP #### [address] [place], [facility] Farm Machinery Mechanic: Haris Baker MD MCHC (RBC) [Mass/Vol] 33.0 g/dL Normal 28.4-34.8 [facility] Comment on above: Performed By: #### B MP, CDP, LIP, HCG, LIVP #### [address] [place], [facility] Farm Machinery Mechanic: Haris Baker MD MCV (RBC) [Entitic vol] 89.4 fL Normal 82.6-102.9 [facility] Comment on above: Performed By: #### B MP, CDP, LIP, HCG, LIVP #### [address] [place] [address] Farm Machinery Mechanic: Haris Baker MD Monocytes (Bld) [#/Vol] 0.70 10*3/uL Normal 0.10-1.20 [facility] Comment on above: Performed By: #### B MP, CDP, LIP, HCG, LIVP #### [facility] [address] [place], [place] [id number] Farm Machinery Mechanic: Haris Baker MD Monocytes/100 WBC (Bld) 7 % Normal 3-12 [facility] Comment on above: Performed By: #### B MP, CDP, LIP, HCG, LIVP #### [facility] [address] [place] [address] Farm Machinery Mechanic: Haris Baker MD Neutrophil (Seg) 58 % Normal 36-65 [facility] Comment on above: Performed By: #### B MP, CDP, LIP, HCG, LIVP #### [address] [place], [place] [address]183 Farm Machinery Mechanic: Haris Baker MD NRBC Automated 0.0 per 100 WBC Normal 0.0 [facility] Comment on above: Performed By: #### B MP, CDP, LIP, HCG, LIVP #### [address] [place], [place] 2206383 Farm Machinery Mechanic: Haris Baker MD Platelet mean volume (Bld) [Entitic vol] 10.3 fL Normal 8.1-13.5 [facility] Comment on above: Performed By: #### B MP, CDP, LIP, HCG, LIVP #### [facility] [address] [place] [address] [place] [address] Farm Machinery Mechanic: Haris Baker MD Platelets (Bld) [#/Vol] 289 10*3/uL Normal 138-453 [facility] Comment on above: Performed By: #### B MP, CDP, LIP, HCG, LIVP #### [address] [place], [place] 3379883 Farm Machinery Mechanic: Haris Baker MD RBC (Bld) [#/Vol] 4.99 10*6/uL Normal 3.95-5.11 [facility] Comment on above: Performed By: #### B MP, CDP, LIP, HCG, LIVP #### [facility] [address] [place] [address] Farm Machinery Mechanic: Haris Baker MD WBC (Bld) [#/Vol] 9.8 10*3/uL Normal 3.5-11.3 [facility] Comment on above: Performed By: #### B MP, CDP, LIP, HCG, LIVP #### [facility] [address] [place] [address] Farm Machinery Mechanic: Haris Baker MD CT ABDOMEN PELVIS W [...] acute intra-abdominal or intrapelvic process. Interpreted by: Barry Sherman MD Signed by: Barry Sherman MD 12/16/23 Final result Normal [facility] HCG Screen, Bloodon 12-16-19 HCG Screen, Blood Negative Normal NEG [facility] Comment on above: Result Comment: Spec imens with hCG levels near the threshold of the test (25 mIU/mL) may give a negative or indeterminate result. In such cases, another test should be performed with a new specimen in 48-72 hours. If early is suspected clinically in this setting, correlation with quantitative serum b-hCG level is suggested. [facility] has confirmed the use of plasma for this test. This has not been cleared or approved by the U.[place]. Food and Drug Administration. The FDA has determined that such clearance is not necessary. Performed By: #### B MP, CDP, LIP, HCG, LIVP #### [address] [place] [address] Farm Machinery Mechanic: Haris Baker MD Lipaseon 12-16-2023 Lipase [Catalytic activity/Vol] 22 U/L Normal 13-60 [facility] Comment on above: Performed By: #### B MP, CDP, LIP, HCG, LIVP #### [address] [place] [address] Farm Machinery Mechanic: Haris Baker MD Liver Profileon 12-16-2023 Albumin [Mass/Vol] 4.0 g/dL Normal 3.5-5.2 [facility] Comment on above: Performed By: #### B MP, CDP, LIP, HCG, LIVP #### [address] [place] [address] Farm Machinery Mechanic: Haris Baker MD Albumin/Glob Ratio 1.2 Normal 1.0-2.5 [facility] Comment on above: Performed By: #### B MP, CDP, LIP, HCG, LIVP #### [address] [place], [place] [address]83 Farm Machinery Mechanic: Haris Baker MD Alkaline Phos 58 U/L Normal 35-104 [facility] Comment on above: Performed By: #### B MP, CDP, LIP, HCG, LIVP #### [address] [place], [place] [address]83 Farm Machinery Mechanic: Haris Baker MD ALT [Catalytic activity/Vol] 14 U/L Normal 5-33 [facility] Comment on above: Performed By: #### B MP, CDP, LIP, HCG, LIVP #### [address] [place], [place] [address]83 Farm Machinery Mechanic: Haris Baker MD AST [Catalytic activity/Vol] 13 U/L Normal <32 [facility] Comment on above: Performed By: #### B MP, CDP, LIP, HCG, LIVP #### [address] [place], [place] 3014883 Farm Machinery Mechanic: Haris Baker MD Bilirubin [Mass/Vol] 0.7 mg/dL Normal 0.3-1.2 [facility] Comment on above: Performed By: #### B MP, CDP, LIP, HCG, LIVP #### [address] [place], [place] 226[address]83 Farm Machinery Mechanic: Haris Baker MD Bilirubin, Indirect Can not be calculated Normal 0.0-1 .0 [facility] Comment on above: Performed By: #### B MP, CDP, LIP, HCG, LIVP #### [address] [place], [place] [address]69783 Farm Machinery Mechanic: Haris Baker MD Bilirubin.indirect [Mass/Vol] mg/dL Normal <0.3 [facility] Comment on above: Performed By: #### B MP, CDP, LIP, HCG, LIVP #### [address] [place], [facility] Farm Machinery Mechanic: Haris Baker MD Protein [Mass/Vol] 7.4 g/dL Normal 6.4-8.3 [facility] Comment on above: Performed By: #### B MP, CDP, LIP, HCG, LIVP #### [facility] [address] [place], [place] [id number] Farm Machinery Mechanic: Haris Baker MD UA w/Reflex Cultureon 2023 Bilirubin, SemiQt,Ur Negative Normal NEG [facility] Comment on above: Performed By: #### U AX, UMICAO #### [address] [place], [facility] Farm Machinery Mechanic: Haris Baker MD Blood, Urine Negative Normal NEG [facility] Comment on above: Performed By: #### U AX, UMICAO #### [facility] [address] [place], [facility] Farm Machinery Mechanic: Haris Baker MD Clarity (U) Clear Normal CLEAR [facility] Comment on above: Performed By: #### U AX, UMICAO #### [address] [place], [facility] Farm Machinery Mechanic: Haris Baker MD Color (U) Yellow Normal YEL [facility] Comment on above: Performed By: #### U AX, UMICAO #### [facility] [address] [place], [facility] Farm Machinery Mechanic: Haris Baker MD Glucose Ql (U) Negative Normal NEG [facility] Comment on above: Performed By: #### U AX, UMICAO #### [facility] [address] [place], [place] [phone] Farm Machinery Mechanic: Haris Baker MD Ketones Ql (U) Negative Normal NEG [facility] Comment on above: Performed By: #### U AX, UMICAO #### [facility] [address] [place], [place] 148[address]83 Farm Machinery Mechanic: Haris Baker MD Leukocyte esterase Test strip Ql (U) Negative Normal NEG [facility] Comment on above: Performed By: #### U AX, UMICAO #### [facility] [address] [place], [place] [address]83 Farm Machinery Mechanic: Haris Baker MD Nitrite,Ur Negative Normal NEG [facility] Comment on above: Performed By: #### U AX, UMICAO #### [facility] [address] [place], [place] [phone] Farm Machinery Mechanic: Haris Baker MD PH,Ur 6.0 Normal 5.0-9.0 [facility] Comment on above: Performed By: #### U AX, UMICAO #### [address] [place], [place] 0827483 Farm Machinery Mechanic: Haris Baker MD Protein Ql (U) Negative Normal NEG [facility] Comment on above: Performed By: #### U AX, UMICAO #### [address] [place], [place] 3665783 Farm Machinery Mechanic: Haris Baker MD Spec. [place],Ur 1.010 Normal 1.010-1.020 [facility] Comment on above: Performed By: #### U AX, UMICAO #### [facility] [address] [place] [address] [place], [place] 7912083 Farm Machinery Mechanic: Haris Baker MD Urobilinogen,Ur Normal Normal 0.0-1.0 [facility] Comment on above: Performed By: #### U AX, UMICAO #### [address] [place], [place] 2297383 Farm Machinery Mechanic: Haris Baker MD Urinalysis,Microon 4 Epithelial cells LM Ql (Urine sed) None Normal 0-25 [facility] Comment on above: Performed By: #### U AXKYRAO #### [facility] [address] [place], [place] [address]66[address]83 Farm Machinery Mechanic: Haris Baker MD Urine RBC's None Normal 0-2 [facility] Comment on above: Performed By: #### U AXKYRAO #### [facility] [address] [place], [place] [phone] Farm Machinery Mechanic: Haris Baker MD Urine WBC's None Normal 0-5 [facility] Comment on above: Performed By: #### U AXGUERLINE #### [facility] [address] [place] [address] Farm Machinery Mechanic: Haris Baker MD Outside Recordson 11-27-2023 Outside Records [id number]. 00[facility] Coding Summary.on 04-23-2022 Coding Summary. CD:[id number] G h0bWw+PGhlYWQ+EX0KWAU hE77zyMXixW1TE2pEXQ3Z BQEJNWDHKI2KDS8xuWP2A IizQ2TegzFz PvljcXAlSK81HLx7KNP6l NckFXwyoA6wkOVcB8a2Ac JlBK48rG95RGowAPUmEcH 3LjZpbjsgbWFy K1bbMoKkoQTzZcl+PHRhY mxlIHdpZHRoPScxMDAlJy ZdnPceGK3yJt8dNLGuONX vbGxhcHNlOiBj v5csCHIpTMrdYB4gaGflW 1CnkSK3BCDyw6d6Xc28tO I+EBOlDYR8qUldTWbcw55 1YoOjc3ujRJQ7 vYWnQPvfDMM1N45kx5B2F LBaTVNxPLG7kLY2zU9giQ vvjfxdF7RpfDJxWzS7BTJ 5gXEmdC0wjJog udeviN1xMbe+J84IUN7VL MMRBR3MJfp8K8WiQsvzlK I+RK91REFsYR84dPGdhDY ua4gmaDl7CgYp JXJfEBK7yHcqBNona4TaI ILbC75twQRvj7E4NHNzgP cvqGUiIcItdCZ6oX7yVGp eqzgej9ujuwbs Plldb9fntr87hL83L70xI ZlcDYZoJKX2PCLuETUroU akfs8hpA0uDn8+JEozk9y uk4cpuOy2KpOy CJDdlyTqoYosWDE1d7AbI y72C9VuxWoka5RxNlg1nf 66oSRos6S0jWG0ZRddAKL ikW5tAIvrYqG4 QEYvFgOheX01kGHcWUogG k3nuZvbrYnqFB0fCKOdhy frDUYknS3cIHZrbYTnrXe wAP6wRUWxpjfl q504VdLaBAD3LTHfqGKpP 9OnrP4mYwQeNDVjRQVmJ5 ItvWSlTNpkZ328MUrmFzJ 6ONWyurQfS7Uz ASDxsRcyElL8s3W8Fl9My 9HcijwtUPP6IQzmYLA2Os AxLbEaKeL5J4GtVno2CCQ fxSpaQW9vD5Cv NGPmhxbqihxtbWU5ADNyF UXqlD11rPFwYEbwDh2rw3 V7o633DPXjAZDrtF80Ar1 udDogMTBwdCBU cX0rnquwe7nncnqlGmUmC CTfMYa3YNm8EWWovCdkIl DbOHM8VaF3PQS5qKJogS0 jeAwjwawvvW1m Oyc+Z05dlB3tHPV4KQF1p geoVPJsoxJeAD32NN27I4 RyPjwvdGFibGU+PGRpdiB kiVewYS2wAlEe u5wwi4GpNBqcZ8CjFMOwD IftKht7TCMcQUS2aBI8yZ 3mJRJtELhmu6G3zNF4V6G djoDjum2xr4ex IRAfTJzjT69fvCMav7Y9D SXjjAB7MENxoPxiVaVkqG 93Oyc+XSDnkSkjy9RyAsq mb1iaz9udaQl0 HjEuAUJbjbPaiTjdXBG4l 4LyLq40G33vPBzqDREcXR RmXCPxEOCayBgbou1neW7 wIi8+PGNvbCB3 qEK4iH4wCUMyBtS8YQvgV 307WaGlcCCsQnqga0ysn1 mxxSd4FyFbNMHbruLqjSs kQCZ0p5CcWx38 K79gXOkaFUTkRYLkOXJqI AEsqYcpku1awP0xRm7+PC 4yb8qqhv81bQ50yJX+PHR vHUR5uCcoCNet HVVjwY3hRZsuRgX5LOXbG yUohV88zJXlJWsmVp8eyQ slsBruYO6qOFLitdgwc40 8EhJcz3hvRJRb fBHuEGslEVT0U74ux1Q8I FAdHVZqBWG3fAQ0oQ6ooK lnbjogbGVmdDsgdmVydGl lVMruKHkyE033 IHRvcDsnPlBhdGllbnQgT iThIZw4W5SnVhd3ZRUfwJ fcZF5yaARtLGfkRr2huJz vaLseXN4hEREu likry214ExRai9esHUKga SNiELwjRDC1V76fq9O6HG SaTJJjKCA5gTP7aC0faHf nbjogbGVmdDsg keZtrWaeCYruCLqxQ724B HRvcDsnPkJpcnRoIERhdG Q4WU94CZ93bZRql1F9rYP 7H7WrWCRxqysp lpdyaHD6JUPeGINlsX24X i5eeYadFk4zVRAeOCL4CX LuuEVrN4FghV2bFlMkDQN xVNXuN2AjhRQj AStiV917FVqoWbH4NQOqd nYcN5ZrEVSdmKnoIoG6e4 O5Kw2RJ9X4SN27WC27nYQ np0T3tUZ7D9Ut FUKwigazmltznZY2TZEoV CFzcW41Ox6xoZiiUw5mIE ApEFN4LBEdsULuI4QjtT4 yOiAjMDAwMDAw E4UacUVxTUfqU114UBaxG uO6FCYyhkLtD1EpNIJmgX whMkR3p7Z1Lt2NFQy1YA6 3IS75zBAlm0H3 hGL9N6ZsHTBdpjuwcxoef BH6CQFbSFMtnT00Kv5lwY kpPv7yDCOrBEN4GPStsFL bW7PmyK4rErTn JIZxRNDvO8SzuRClZAtbL 402OPnbSiF2KUFeovWuY3 QnVEXarVelTlP6i5Y2Gy8 LNHGoIZ55AAH2 fTV4QY47MB65R6NcLlpxj GFibGU+PHRhYmxlIHdpZH RoPScxMDAlJyBzdHlsZT0 jCr4uRZAuPAPg pYcqdMMyKyUzd4pzZJYiM YzmKM9rlEqpW4IurPU5TX Gph1j0Jw19K96sR6FubTS +LPRxlTA6uAP4 dL9uOuNrWvJ9JWkyT822R jBaxAHpOhsow0tae2pjqN a6ViJ4OANgemTucUvzZID 9o3NaDd25H84g IHdpZHRoPSIxNSUiIHZhb Ydowh8jpW0nJf7+PGNvbC B5iED1fX7gPtFvLcI5JCe lN413EhIhcXBo Aijct4fks5wqoLr2BnEwN QNpctNrnAqjSVF6q5VpRf 76B1VrnJbax1GdRya8do4 8jDKuj6T4sFJ9 Q2HyFEKwsgmztOOmvBnmA J6aNFAekacxMKLfmR2wBT CuI3v1UyTaKjQ4KFzjE7F xcoO6SRRhaYXx MWipUKV5I29nw9B9RZUsK BWeXFA3mYO2aM2aaEjuia ogbGVmdDsgdmVydGljYWw hOCzyB454HOPe mXlnJAJmqM5bPKRgzMGqr MptNR7cCCMyvqahCawZYD UcQP0OC40BISOGSQ05UP3 7eTQlm8S5nFX5 J3EdIOAgywsskjdrkZH7G RZsRHBlnH55eLXnAPjfVx 1za0E2o534VUUbIXHmyW3 5Gz4jpJkzAMVu pNEBvG7jjryri3bdwqoaW uEpTXCxCEq9KZv7CPVhrJ hoJoVnLBH2GpL2WBD5rSZ kiB1jhOxcwxvj qS6yKzx+ZPRhJCWqYQb9U TwvdGQ+EJRyNOA1aVxdDJ vqUNFmsL7qXGVyY6n9TeZ dJuK7HYnvP9Wx CAKkhssnZt64nU2nLvBsP xY8HTnqM7EyebK0YEPuyQ HjIPyfJZN0X11lh5J6QVD nCIDpGCJ2aRL3 iS7ucPskjxxcdOBwjPitf sNmbRezSCulXOswV555FP RvcDsnPjQzIFllYXJzPC9 3MY79zBMar9T3 wIY0T1SbCKKarqqodmfda II4ORXuPNFgoD29oVXeXO jnNc5su3I8f674WWXkQEA cvB81Zy0fpJsl SFDadIHClT6fprzfc5mgh zzhSwUrMPRsUPa9GKd2UP UwyRypTeWwSDS4JpF6TTU 9zLWkqY7vaDxa zcyqkB5fTtp+RmVtYWxlP P17WJ41iDOvy8L8hXK5A1 VvEIBfttwarkofsQL7ILA gXIWbbM35aWZc LKklYl3ff5L3s986KNEdS SAhxE65Ab0bmScdULEliW MHfR5aldemg8gdxkerEqV gGVVjCFh9DEe1 MHGzcLtmVyVlRRU0IlT4G ZX6fNJezM3woAklyzfabS 9wOyc+IK6fuzcporI8HP0 2FB66A6CyHbjw dGFibGU+PHRhYmxlIHdpZ HRoPScxMDAlJyBzdHlsZT 7nBx1gBMTkGCLdcOvtiYX bBxPoa0uyMPPf GQffNF7sdRfeQ8VclEK0U RTfj0h8Ip47Z18xJ6BkoS A+THEtzJB7fYH8iV5aRzW eTuN8RGvxY516 GrCleRSjCspat8syg4aak Hc2RrEjNQZultToxSvqSG L3v3UgTa57J04aTSgeGTL oPSIyMCUiIHZh uZitcg5cuN6eBt0+PGNvb NM3yLP3tV1uNoYnCgN4SV znN221KcUsoLVwTlgvU64 iJ1QwbWX+PHRy Dmw1NOHtrJsiOS2jbAVvC DeiNt8lOKH8EoYeZmVfGP jnU8ZqUSZsweissbyvnRJ 7XCKqGWKysU80 Tb9rqZvrEq4gOPAzRWV0N ZTxcBQiY7QykB6uMvPqIP WpMGQqZ1VljBJrIGhxL38 6MVfgJuF7YVTr juZyU9KrLAQdzToiIqA5s 4P1Gk6NnHalmYEhIR3eLi ScQCl7L6OkCiz7GNUmrFp zDK1ruNTkFTqo Nl8ucOfolKvaIB7yAKHdy zcxw067CwGck5qkUUYywF RbEGnhMSW2C33vc7D2YRT cSMSxHBY5jXT9 kH7swDskjowjwZSxyPdyk qUykFymVNkqBSdaD890RJ TtyCfkRjKYVtm3J7HoEll 5MILvnBdzNA0d wIWdVTxwEm9aiHaazWbcD E7jFJGizzrac117MqZrp3 nrWYSsuBAyZTckAXP0O38 zm7K5OZAqOTIk ODL2jHZ1iB7xiTvskampu GVmdDsgdmVydGljYWwtYW mlC954EKQooIniXb8EXlu 0E4RfUxj1HVRa lPkbGG9rjLIvYSvxKa5yp CqyaQywND8kTPGuzdkim8 50PsIow4yhSOJjvITzXOa iAWO9Y92jh5M5 EFMqBJUoFBJ8kFP2kS5ui GlnbjogbGVmdDsgdmVydG ajJPeuKXgnN603XKGjpEc nPlBheWVyOjwv dGQ+GW76ws90R1TxJokvX lz2DUMhHDY6eXX3zO0yFV OaQBplq9U2vOV8X1CaarJ ddo8fz4inYMAw ZTog (more content not included)... Normal [facility] ED Note-Physicianon 04-23-20 ED Note-Physician Basic Information Time Seen: Philippe Rice DO 04/22/2022 11:36 Chief Complaint patient c/o rash [...] Patient seen and evaluated by the physician assistant media buyer. Attending physician was present in the emergency department and supervised care. This visit was performed by both the physician and an APC. I performed all aspects of the MDM as documented. This report was transcribed using voice recognition software. Every effort was made to ensure accuracy, however, inadvertently computerized billet bed operator mistakes may be present. Appropriate healthcare PPE [...] Diagnostic Results No qualifying data available. Normal [facility] Comment on above: Result Comment: Elec tronically Signed By: Keenan Charles PA-C\.br\Date and Time Signed: 04/22/22 11:45 EDT\.br\Electronically Co-Signed By: Philippe Rice DO\.br\Date and Time Co-Signed: 04/23/22 07:13 EDT Consent for Treatmenton Consent for Treatment [id number] .00CD:127 Normal [facility] Discharge Instructionson Discharge Instructions [id number]# 1.00CD:127 Normal [facility] ED Clinical Summaryon 2021 ED Clinical Summary [address] [address] ED Clinical Summary Person Information Name: NISA ARSHAD Amee/[facility] Age: 42 Years : 1980 Sex: Female Language: [place]ian PCP: DARRON MCMILLAN DO Marital Status: Single [...] 04/22/2022 12:02:06 04/22/2022 12:02:06 04/22/2022 12:02:06 ADDRESS: [address] [place] [address] [address] [place] [id number] PHYS DOC NOTES: MEDICAL INFORMATION: Prescriptions Given: [...] days 04/25/2022 DIAGNOSIS: Cellulitis; Contact dermatitis Normal [facility] ED Patient Education Noteon 04-22-2022 ED Patient [...] job, you may need to see an medicaid eligibility specialist. How is this treated? This condition is [...] and dyes. Medicines ? 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 General instructions ? Avoid the substance that [...] away if: (more content not included)... Normal [facility] ED Patient Summaryon 022 ED Patient Summary [place] [id number] Patient Discharge Instructions Person Information Name: NISA ARSHAD Age: 42 Years [facility]: [id number] Arrival Date: 04/22/2022 11:32:43 Discharge Diagnosis: Cellulitis; Contact dermatitis Primary Care Physician: DARRON MCMILLAN DO Provider Information Primary Provider: Philippe Rice DO Advanced Weight Control Lecturer:Keenan Charles PA-C The exam and treatment you received in the Emergency Department were for an urgent problem and are not intended as complete care. It is important that you follow up with a doctor, nurse practitioner, or physician?s assistant media buyer for ongoing care. If your symptoms become [...] opioids can be used to help relieve xbprezoy-yd-ndwykd pain and are often prescribed following a [...] be struggling with addiction, tell your health urgent care nurse practitioner and ask for guidance or call SAMHSA?S National Helpline at 0-472-155-NIFJ. v Source: [place] Department of Health and Human Services/Center for (more content not included)... Normal [facility] Vital Signs Date Time Vital Sign Value Performing Clinician Nicole alonzo 04-22-2022 11:35-0400 Body temperature 97.88 [degF] Philippe Krystal [facility] 04-22-2022 11:35-0400 Diastolic blood pressure 89 mm[Hg] Philippe Rice [facility] 04-22-2022 11:35-0400 Heart rate 93 /min Philippe Rice [facility] 04-22-2022 11:35-0400 SaO2% (BldA) [Mass fraction] 100 % Philippe Rice [facility] 04-22-2022 11:35-0400 Systolic blood pressure 142 mm[Hg] Philippe Rice [facility] Encounters Encounter Date Encounter Type Care Provider Facility Start: 12-16-2023 End: 12-16-2023 Emergency department patient visit [facility] Start: 12-10-2023 End: 12-10-2023 ambulatory Darron Mcmillan Facility: [facility] Start: 12-03-[address] [facility] Start: 11-26-2023 End: 11-26-2023 ambulatory Darron Mcmillan Facility: [facility] Start: 03-17-2023 End: 03-17-2023 Emergency department patient visit Magdi Gutierrez Facility:[facility] Start: 04-22-2022 End: 04-22-2022 Emergency department patient visit Philippe Rice [facility] Payers Date Payer Category Payer Medicaid [id number] 2023 Self-pay 2022 Unknown [id number] 1980 Unknown [id number] [id number] 1979 Unknown [id number] [id number] [id number] 1979 Unknown [id number] 2.16.8 [id number] 1979 Unknown [id number] 2.16.8 [id number] Unknown [id number] 2.16.8 [id number] Social History Date Type Detail Facility Tobacco smoking status No Smoking Status Entered [facility] Sex Assigned At Female [facility] Functional Status Date Assessment Result Facility 04-22-2022 Functional Status N/A [facility] Medication management note 11-12-2024 Note Date & Type Note Facility 11-12-2024 Note - From: Anjali Solis RN ([facility] ([facility] To: Darron Mcmillan DO; Sent: 11/12/2024 07:24:11 EST Subject: FW: Medication Management Due Date/Time: 11/12/2024 20:33:00 EST Caller Name: JEANCARLOS NISA VENESSA; Caller Number: , From: makr [id number] To: Molly Ferrer CNP Sent: November 11, 2024 7:33:29 PM 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 Submitted: Order:gabapentin (gabapentin 300 mg oral capsule) 1 cap(s) Oral BID Qty: 60 cap(s) Days Supply: 30 Refills: 1 Substitutions Allowed Route To Pharmacy - [facility]/pharmacy #[id number] oarrs 08/30/24 Signed by Darron Mcmillan DO 11/12/2024 07:37:00 EST [facility] Medication management note 08-30-2024 Note Date & Type Note Facility 08-30-2024 Note - From: Anjali Solis RN ([facility] ([facility])) To: Molly Ferrer CNP; Sent: 08/30/2024 07:32:13 EST Subject: FW: Medication Management Due Date/Time: 08/30/2024 19:47:00 EST Caller Name: NISA ARSHAD; Caller Number: H , M Patient matched by Anjali Solis RN on 08/30/2024 07:31:32 EST From: makr [id number] To: Darron Mcmillan DO Sent: August 27, 2024 6:47:15 PM BELT WORKER Subject: Medication Management Due: August 28, 2024 12:10:08 AM BELT WORKER On Hold Pending Signature Dispensed Drug: gabapentin (gabapentin 300 mg oral capsule), TAKE 1 CAPSULE BY MOUTH TWICE A DAY Quantity: 60 cap(s) Days Supply: 30 Refills: 1 Substitutions Allowed Notes from Pharmacy: From: Molly Ferrer APRN, CNP To: [facility]/pharmacy #[id number] Sent: 08/30/2024 12:05:15 EST Subject: FW: Medication Management Submitted: Order:gabapentin (gabapentin 300 mg oral capsule) 1 cap(s) Oral BID Qty: 60 cap(s) Days Supply: 30 Refills: 1 Substitutions Allowed Route To Pharmacy - [facility]/pharmacy #[id number] oarrs 08/30/24 Signed by Molly Ferrer APRN, CNP 08/30/2024 12:04:00 EST Submitted: Complete:gabapentin (gabapentin 300 mg oral capsule) OARRS reviewed 12/19/20 Signed by Molly Ferrer APRN, CNP 08/30/2024 12:05:00 EST Not Approved: New Rx to follow gabapentin (GABAPENTIN 300 MG CAPSULE) TAKE 1 CAPSULE BY MOUTH TWICE A DAY Qty: 60 cap(s) Days Supply: 30 Refills: 1 Substitutions Allowed Route To Pharmacy - [facility]/pharmacy #[id number] Signed by Molly Ferrer APRN, CNP [facility] Medication management note 07-06-2024 Note Date & Type Note Facility 07-06-2024 Note - From: Anjali Solis RN ([facility] ([facility]) To: Darron Mcmillan DO; Sent: 07/05/2024 07:48:44 EDT Subject: FW: Medication Management Due Date/Time: 07/05/2024 15:24:00 EDT Caller Name: NISA ARSHAD; Caller Number: , M Patient matched by Anjali Solis RN on 07/05/2024 07:48:06 EDT From: [id number] To: Darron Mcmillan DO Sent: July 04, 2024 2:24:05 PM CDT Subject: Medication Management Due: July 05, 2024 1:49:36 AM CDT On Hold Pending Signature Dispensed Drug: gabapentin (gabapentin 300 mg oral capsule), TAKE 1 CAPSULE BY MOUTH TWICE A DAY Quantity: 60 cap(s) Days Supply: 30 Refills: 0 Substitutions Allowed Notes from Pharmacy: From: Molly Ferrer APRN, CNP To: [facility]/pharmacy #[id number] Sent: 07/06/2024 12:29:33 EDT Subject: FW: Medication Management Not Approved: Refill not appropriate, just filled 07/04/24 gabapentin (GABAPENTIN 300 MG CAPSULE) TAKE 1 CAPSULE BY MOUTH TWICE A DAY Qty: 60 cap(s) Days Supply: 30 Refills: 0 Substitutions Allowed Route To Pharmacy - [facility]/pharmacy #[id number] Signed by Molly Ferrer APRN, CNP [facility] Medication management note 04-28-2024 Note Date & Type Note Facility 04-28-2024 Note - From: Anjali Solis RN ([facility] ([facility]) To: Darron Mcmillan DO; Sent: 04/28/2024 07:40:08 EDT Subject: FW: Medication Management Due Date/Time: 04/29/2024 00:47:00 EDT Caller Name: JEANCARLOS NISA NAJERAN; Caller Number: , From: [facility] #[id number] To: Darron Mcmillan DO Sent: April 27, 2024 11:47:11 PM CDT Subject: Medication Management Due: April 28, 2024 11:40:41 AM CDT On Hold Pending Signature Drug: [...] Allowed Route To Pharmacy - [facility] #[id number] OARRS reviewed 12/19/20 Signed by Darron Mcmillan DO 04/28/2024 07:43:00 EDT [facility] Medication management note 03-30-2024 Note Date & Type Note Facility 03-30-2024 Note - From: Anjali Solis RN ([facility] ([facility])) To: Darron Mcmillan DO; Sent: 03/30/2024 12:59:30 EDT Subject: Med Management Caller Name: NISA ARSHAD; Caller Number: , Caller is: ( X ) Patient ( ) Mother ( ) Father ( ) Pharmacy ( ) Other: Pharmacy to route Rx to: [facility] Patient's Provider: Reviewed Allergies: ( ) Yes ( ) No Pharmacy: [facility] Comments: 1. Name of Medication: GABAPENTIN 300MG BID Dosage: Dispense: ( ) New ( ) Refill Comment: 2. Name of Medication: Dosage: Dispense: ( ) New ( ) Refill Comment: 3. Name of Medication: Dosage: Dispense: ( ) New ( ) Refill Comment: 4. Name of Medication: Dosage: Dispense: ( ) New ( ) Refill Comment: ( ) OK to leave message on voice mail ( ) Patient told to expect return call: ( ) today ( ) tomorrow ( ) next work day ( ) Patient's email ( ) Other: Call back phone # now: until: Call back phone # later: Submitted: Order:gabapentin (gabapentin 300 mg oral capsule) 1 cap(s) PO BID Qty: 60 cap(s) Days Supply: 30 Refills: 2 Substitutions Allowed Route To Pharmacy - [facility] #[id number] O[facility]RS reviewed 12/19/20 Signed by Darron Mcmillan DO 03/30/2024 13:00:00 EDT [facility] Medication management note 12-22-2023 Note Date & Type Note Facility 12-22-2023 Note - From: Anjali Solis RN ([facility] ([facility])) To: Darron Mcmillan DO; Sent: 12/22/2023 07:33:26 EDT Subject: FW: Medication Management Due Date/Time: 12/22/2023 19:27:00 EDT Caller Name: NISA ARSHAD; Caller Number: Feliberto , M From: [facility] #[id number] To: Darron Mcmillan DO Sent: December 19, [...] Allowed Route To Pharmacy - [facility] #[id number] OARRS reviewed 12/19/20 Signed by Darron Mcmillan DO 12/22/2023 07:34:00 EDT [facility] Discharge instructions 04-22-2022 Note Date & Type [...] job, you may need to see an medicaid eligibility specialist. How is this treated? This condition is [...] perfumes, and dyes. 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 General instructions Avoid the substance that caused [...] 09/05/2001 Document Revised: 12/29/2019 Document Reviewed: 03/24/2019 [employer] Patient Education 2020 [employer]. 04/22/2022 12:02:06 Cellulitis, Adult Cellulitis, Adult Cellulitis [...] Follow these instructions at home: Medicines Take okfk-omj-zuoczpn and prescription medicines only as told by [...] such as antibiotic medicines or antihistamines. Take ujui-ezo-lgncyup and prescription medicines only as told by [...] 06/18/2006 Document Revised: 01/28/2019 Document Reviewed: 01/28/2019 [employer] Patient Education [id number] Follow Up Care 04/22/2022 11:34:55 With:DARRON MCMILLAN Address:Unknown When:04/25/2022 11:40:33 [facility] Evaluation + Plan note Note Date & Type Note Facility Evaluation + Plan note No data available for this section [facility] Progress note Note Date & Type Note Facility Progress note No data available for this section [facility] Summary Purpose Family History No Family History Records FoundNo Family History Records FoundNo Family History Records FoundNo Family History Records Found Advance Directives No Advanced Directives Records FoundNo Advanced Directives Records FoundNo Advanced Directives Records FoundNo Advanced Directives Records Found Additional Source Comments Care Team (unrecognized sect ion and content) Personnel Name: DARRON MCMILLAN DO Address: [address] [place] [address]- INFORMATION SOURCE (unrecogn ized section and content) DATE CREATED AUTHOR 04/24/2022 [facility] DATE CREATED AUTHOR AUTHOR'S ORGANIZ ATION 04/02/2023 [facility] DATE CREATED AUTHOR AUTHOR'S ORGANIZ ATION 12/17/2023 [facility] DATE CREATED AUTHOR AUTHOR'S ORGANIZ ATION 11/14/2024 [facility] FOR RECORDS PERTAINING TO PATIENTS WHO ARE [...] BE BASED ON THE PRIMARY CLINICAL RECORDS. [employer] [facility] provides no warranty or guarantee of the accuracy or completeness of information in this document.
--- NOTE | 2024-11-16 14:52 | PC.NURSE ---
pt c/o left jaw pain started couple days ago
--- NOTE | 2024-11-16 14:53 | ED_ITS ---
HPI - Dental/Oral General Chief complaint: Dental/Oral Stated complaint: DENTAL PAIN Time Seen by Provider: 11/16/24 14:29 Source: patient Mode of arrival: walk-in Limitations: no limitations History of Present Illness HPI Narrative: Patient is a 44-year-old female who presents to the emergency department for left-sided jaw pain for the last day. She feels like her jaw is swollen but has not noticed any objective swelling. She denies a possibility of . She is a regular smoker. She has had no fevers or drainage from the area. She was seen in this emergency department 10 months ago for dental pain and drainage from tooth #18. Per the documentation at that time she was supposed to have the tooth extracted. She states she did not. She still has an eroded tooth #18 in the left lower jaw. No redness or swelling under the tongue. Related Data Home Medications ?Medication ?Instructions ?Recorded ?Confirmed clonazepam 0.5 mg tablet 0.5 mg PO DAILY 02/02/24 02/02/24 gabapentin 300 mg capsule 300 mg PO Q12H 02/02/24 02/02/24 Previous Rx's ?Medication ?Instructions ?Recorded clindamycin HCl 300 mg capsule 300 mg PO Q8H 7 days #21 caps 02/02/24 clindamycin HCl 150 mg capsule 300 mg (2 x 150 mg) PO Q6H 10 days 11/16/24 #80 caps ketorolac 10 mg tablet 10 mg PO TID PRN pain #10 tabs 11/16/24 Allergies Allergy/AdvReac Type Severity Reaction Status Date / Time No Known Drug Allergies Allergy Verified 10/18/23 17:29 Review of Systems ROS Constitutional Denies: fever or chills Ears, nose, mouth, and throat Reports: mouth pain; Denies: throat pain or nasal congestion Cardiovascular Denies: chest pain Respiratory Denies: shortness of breath or cough Gastrointestinal Denies: nausea or vomiting Integumentary/Breast Denies: rash Hematologic/Lymphatic Denies: easy bruising or easy bleeding PFSH PFSH Social History Little interest or pleasure in doing things: not at all Feeling down, depressed, or hopeless: not at all Exam Narrative Exam Narrative: Gen.: Awake, alert, in no distress Head: Normocephalic, atraumatic ENT: Moist mucous membranes, tooth #18 is eroded to the gumline with root exposure, no abscess. No redness or swelling under the tongue. Clear speech. No facial swelling. Left TM is clear Respiratory: No respiratory distress Extremities: Moves extremities equally Psych: Normal mood and affect Neuro: No focal neuro deficit Skin: Warm, dry, intact Constitutional Vital Signs, click to edit/add: Last Vital Signs Temp 98.5 F 11/16/24 14:31 Pulse 99 H 11/16/24 14:31 Resp 18 11/16/24 14:31 BP 140/94 H 11/16/24 14:31 Pulse Ox 99 11/16/24 14:31 O2 Del Method Room Air 11/16/24 14:31 Course Vital Signs Vital signs: Vital Signs Temperature 98.5 F 11/16/24 14:31 Pulse Rate 99 H 11/16/24 14:31 Respiratory Rate 18 11/16/24 14:31 Blood Pressure 140/94 H 11/16/24 14:31 Pulse Oximetry 99 11/16/24 14:31 Oxygen Delivery Method Room Air 11/16/24 14:31 Temperature 98.5 F 11/16/24 14:31 Pulse Rate 99 H 11/16/24 14:31 Respiratory Rate 18 11/16/24 14:31 Blood Pressure 140/94 H 11/16/24 14:31 Pulse Oximetry 99 11/16/24 14:31 Oxygen Delivery Method Room Air 11/16/24 14:31 MDM - Dental/Oral MDM Narrative Medical decision making narrative: Patient treated with antibiotics and NSAIDs for pain along the left jaw consistent with atypical facial pain likely from dental caries and root exposure of tooth #18. Follow-up with dentist and return to the ER if symptoms change or worsen SUPERVISED APC VISIT, PHYSICIAN ATTESTATION: Based on the medical record the care appears appropriate. ? Medical Records Attestation: I reviewed the patient's medical records. Discharge Plan Discharge Chief Complaint: Dental/Oral Clinical Impression: Atypical face pain, Dental caries Patient Disposition: Home, Self-Care Time of Disposition Decision: 14:51 Condition: Good Prescriptions / Home Meds: New clindamycin HCl 150 mg capsule 300 mg PO Q6H 10 Days Qty: 80 0RF ketorolac 10 mg tablet 10 mg PO TID PRN (Reason: pain) Qty: 10 0RF No Action clonazepam 0.5 mg tablet 0.5 mg PO DAILY gabapentin 300 mg capsule 300 mg PO Q12H clindamycin HCl 300 mg capsule 300 mg PO Q8H 7 Days Qty: 21 0RF Print Language: Monegasque Instructions: Atypical Facial Pain (ED) Referrals: BOB HUMPHIRES [Primary Care Provider] - 1 week
[2024-11-16] MEDS: BENZOCAINE 30 ML, lidocaine HCL 15 ML MM (14:56)
== END 2024-11-16 15:09 | disposition home or self-care (01) ==
PROVIDERS: Emergency Provider Emergency Medicine; PCP Family Medicine
DX: G50.1 Atypical facial pain (principal); K02.9 Dental caries, unspecified; R68.84 Jaw pain; F17.200 Nicotine dependence, unspecified, uncomplicated
CPT/HCPCS: 99284

== ENCOUNTER 2024-12-26 23:22 | Emergency (ER) | payer OTHER, SELFPAY ==
[2024-12-26 23:25] VITALS: BP 142/80; PULSE 85; TEMP 36.8; O2SAT 100; BMI 25.7
--- OUTSIDE RECORDS SUMMARY | 2024-12-26 23:27 | XMS_ITS | CCD ---
Author Organization [facility] Inform ion Partnership [facility] Care Team Providers Care Head Counselor Name Role Phone DARRON MCMILLAN Primary Care Physician [phone] Magdi Gutierrez Admitting Unavailable Magdi Gutierrez Attending [...] Propensity to adverse reactions to drug (disorder) [facility] Repository Medications Current Medications Medication Drug [...] Facil ity Outside Recordson 02-03-2024 Outside Records [id number] 2 [id number] Normal [facility] Basic Metabolic Profon 12-15 Anion gap [Moles/Vol] 10 mmol/L Normal 9-17 [facility] Comment on above: Performed By: #### B MP, CDP, LIP, HCG, LIVP #### [facility] [address] [place] [address] [place] [address] Boiler Room Operator: Haris Baker MD BUN/CRE Ratio 10 Normal 9-20 [facility] Comment on above: Performed By: #### B MP, CDP, LIP, HCG, LIVP #### [facility] [address] [place] [address] [place] [address] Boiler Room Operator: Haris Baker MD Calcium [Mass/Vol] 9.0 mg/dL Normal 8.6-10.4 [facility] Comment on above: Performed By: #### B MP, CDP, LIP, HCG, LIVP #### [facility] [address] [place] [address] Boiler Room Operator: Haris Baker MD Chloride [Moles/Vol] 102 mmol/L Normal 98-107 [facility] Comment on above: Performed By: #### B MP, CDP, LIP, HCG, LIVP #### [facility] [address] [place] [address] [place] [address] Boiler Room Operator: Haris Baker MD CO2 [Moles/Vol] 25 mmol/L Normal 20-31 [facility] Comment on above: Performed By: #### B MP, CDP, LIP, HCG, LIVP #### [facility] [address] [place] [address] Boiler Room Operator: Haris Baker MD Creatinine [Mass/Vol] 0.7 mg/dL Normal 0.5-0.9 [facility] Comment on above: Performed By: #### B MP, CDP, LIP, HCG, LIVP #### [facility] [address] [place] [address] Boiler Room Operator: Haris Baker MD GFR/1.73 sq M.predicted among non-blacks MDRD (S/P/Bld) [Vol rate/Area] mL/min/{1.73_m2} Normal >60 [facility] Comment on above: Result Comment: These results [...] CDP, LIP, HCG, LIVP #### [facility] [address] [place] [address] Boiler Room Operator: Haris Baker MD Glucose [Mass/Vol] 138 mg/dL High 70-99 [facility] Comment on above: Performed By: #### B MP, CDP, LIP, HCG, LIVP #### [facility] [address] [place] [address] Boiler Room Operator: Haris Baker MD Potassium [Moles/Vol] 3.4 mmol/L Low 3.7-5.3 [facility] Comment on above: Performed By: #### B MP, CDP, LIP, HCG, LIVP #### [facility] [address] [place], [place] [id number] Boiler Room Operator: Haris Baker MD Sodium [Moles/Vol] 137 mmol/L Normal 135-144 [facility] Comment on above: Performed By: #### B MP, CDP, LIP, HCG, LIVP #### [facility] [address] [place], [facility] Boiler Room Operator: Haris Baker MD Urea nitrogen [Mass/Vol] 7 mg/dL Normal 6-20 [facility] Comment on above: Performed By: #### B MP, CDP, LIP, HCG, LIVP #### [facility] [address] [place] [id number] Boiler Room Operator: Haris Baker MD CBC with Diffon 12-16-2023 Abs. Basophil 0.05 k/uL Normal 0.00-0.20 [facility] Comment on above: Performed By: #### B MP, CDP, LIP, HCG, LIVP #### [address] [place], [facility]83 Boiler Room Operator: Haris Baker MD Abs.Imm.Granulocyte <0.03 Normal 0.00-0.30 [facility] Comment on above: Performed By: #### B MP, CDP, LIP, HCG, LIVP #### [facility] [address] [place] [address] Dr[place], [facility]83 Boiler Room Operator: Haris Baker MD Abs.Neutrophil (Seg) 5.73 k/uL Normal 1.50-8.10 [facility] Comment on above: Performed By: #### B MP, CDP, LIP, HCG, LIVP #### [facility] [address] [place], [place] [address]83 Boiler Room Operator: Haris Baker MD Basophils/100 WBC (Bld) 1 % Normal 0-2 [facility] Comment on above: Performed By: #### B MP, CDP, LIP, HCG, LIVP #### [address] [place], [place] [address]3 Boiler Room Operator: Haris Baker MD Eosinophils (Bld) [#/Vol] 0.19 10*3/uL Normal 0.00-0.44 [facility] Comment on above: Performed By: #### B MP, CDP, LIP, HCG, LIVP #### [address] [place], [place] 0999283 Boiler Room Operator: Haris Baker MD Eosinophils/100 WBC (Bld) 2 % Normal 1-4 [facility] Comment on above: Performed By: #### B MP, CDP, LIP, HCG, LIVP #### [address] [place], [facility]83 Boiler Room Operator: Haris Baker MD Erythrocyte distribution width (RBC) [Ratio] 12.5 % Normal 11.8-14.4 [facility] Comment on above: Performed By: #### B MP, CDP, LIP, HCG, LIVP #### [address] [place], [facility]83 Boiler Room Operator: Haris Baker MD Hematocrit (Bld) [Volume fraction] 44.6 % Normal 36.3-47.1 [facility] Comment on above: Performed By: #### B MP, CDP, LIP, HCG, LIVP #### [address] [place], [facility]83 Boiler Room Operator: Haris Baker MD Hemoglobin (Bld) [Mass/Vol] 14.7 g/dL Normal 11.9-15.1 [facility] Comment on above: Performed By: #### B MP, CDP, LIP, HCG, LIVP #### [address] [place], [place] [address]83 Boiler Room Operator: Haris Baker MD Immature granulocytes/100 WBC (Bld) 0 % Normal 0 [facility] Comment on above: Performed By: #### B MP, CDP, LIP, HCG, LIVP #### [facility] [address] [place] [address] Dr. [place], [facility]83 Boiler Room Operator: Haris Baker MD Lymphocytes (Bld) [#/Vol] 3.07 10*3/uL Normal 1.10-3.70 [facility] Comment on above: Performed By: #### B MP, CDP, LIP, HCG, LIVP #### [address] [place], [facility]83 Boiler Room Operator: Haris Baker MD Lymphocytes/100 WBC (Bld) 32 % Normal 24-43 [facility] Comment on above: Performed By: #### B MP, CDP, LIP, HCG, LIVP #### [address] [place], [facility]83 Boiler Room Operator: Haris Baker MD MCH (RBC) [Entitic mass] 29.5 pg Normal 25.2-33.5 [facility] Comment on above: Performed By: #### B MP, CDP, LIP, HCG, LIVP #### [address] [place], [facility]83 Boiler Room Operator: Haris Baker MD MCHC (RBC) [Mass/Vol] 33.0 g/dL Normal 28.4-34.8 [facility] Comment on above: Performed By: #### B MP, CDP, LIP, HCG, LIVP #### [address] [place], [facility]83 Boiler Room Operator: Haris Baker MD MCV (RBC) [Entitic vol] 89.4 fL Normal 82.6-102.9 [facility] Comment on above: Performed By: #### B MP, CDP, LIP, HCG, LIVP #### [address] [place] [address] Boiler Room Operator: Haris Baker MD Monocytes (Bld) [#/Vol] 0.70 10*3/uL Normal 0.10-1.20 [facility] Comment on above: Performed By: #### B MP, CDP, LIP, HCG, LIVP #### [facility] [address] [place], [place] 4378783 Boiler Room Operator: Haris Baker MD Monocytes/100 WBC (Bld) 7 % Normal 3-12 [facility] Comment on above: Performed By: #### B MP, CDP, LIP, HCG, LIVP #### [facility] [address] [place] [address] Boiler Room Operator: Haris Baker MD Neutrophil (Seg) 58 % Normal 36-65 [facility] Comment on above: Performed By: #### B MP, CDP, LIP, HCG, LIVP #### [address] [place], [place] 8[address]83 Boiler Room Operator: Haris Baker MD NRBC Automated 0.0 per 100 WBC Normal 0.0 [facility] Comment on above: Performed By: #### B MP, CDP, LIP, HCG, LIVP #### [address] [place], [place] 4357183 Boiler Room Operator: Haris Baker MD Platelet mean volume (Bld) [Entitic vol] 10.3 fL Normal 8.1-13.5 [facility] Comment on above: Performed By: #### B MP, CDP, LIP, HCG, LIVP #### [facility] [address] [place] [address] [place] [address] Boiler Room Operator: Haris Baker MD Platelets (Bld) [#/Vol] 289 10*3/uL Normal 138-453 [facility] Comment on above: Performed By: #### B MP, CDP, LIP, HCG, LIVP #### [address] [place], [place] 8110[address]83 Boiler Room Operator: Haris Baker MD RBC (Bld) [#/Vol] 4.99 10*6/uL Normal 3.95-5.11 [facility] Comment on above: Performed By: #### B MP, CDP, LIP, HCG, LIVP #### [facility] [address] [place] [address] Boiler Room Operator: Haris Baker MD WBC (Bld) [#/Vol] 9.8 10*3/uL Normal 3.5-11.3 [facility] Comment on above: Performed By: #### B MP, CDP, LIP, HCG, LIVP #### [facility] [address] [place] [address] Boiler Room Operator: Haris Baker MD CT ABDOMEN PELVIS W [...] Barry Sherman MD 12/16/23 Final result Normal [facility] HCG Screen, Bloodon 12-16-19 HCG Screen, Blood Negative Normal NEG [facility] Comment on above: Result Comment: Spec imens with hCG levels near the threshold of the test (25 mIU/mL) may give a negative or indeterminate result. In such cases, another test should be performed with a new specimen in 48-72 hours. If early is suspected clinically in this setting, correlation with quantitative serum b-hCG level is suggested. [facility] has confirmed the use of plasma for this test. This has not been cleared or approved by the U.[place]. Food and Drug Administration. The FDA has determined that such clearance is not necessary. Performed By: #### B MP, CDP, LIP, HCG, LIVP #### [address] [place] [address] Boiler Room Operator: Haris Baker MD Lipaseon 12-16-2023 Lipase [Catalytic activity/Vol] 22 U/L Normal 13-60 [facility] Comment on above: Performed By: #### B MP, CDP, LIP, HCG, LIVP #### [address] [place] [address] Boiler Room Operator: Haris Baker MD Liver Profileon 12-16-2023 Albumin [Mass/Vol] 4.0 g/dL Normal 3.5-5.2 [facility] Comment on above: Performed By: #### B MP, CDP, LIP, HCG, LIVP #### [address] [place] [address] Boiler Room Operator: Haris Baker MD Albumin/Glob Ratio 1.2 Normal 1.0-2.5 [facility] Comment on above: Performed By: #### B MP, CDP, LIP, HCG, LIVP #### [address] [place], [place] [address] Boiler Room Operator: Haris Baker MD Alkaline Phos 58 U/L Normal 35-104 [facility] Comment on above: Performed By: #### B MP, CDP, LIP, HCG, LIVP #### [address] [place], [place] [address]83 Boiler Room Operator: Haris Baker MD ALT [Catalytic activity/Vol] 14 U/L Normal 5-33 [facility] Comment on above: Performed By: #### B MP, CDP, LIP, HCG, LIVP #### [address] [place], [place] 060[address]83 Boiler Room Operator: Haris Baker MD AST [Catalytic activity/Vol] 13 U/L Normal <32 [facility] Comment on above: Performed By: #### B MP, CDP, LIP, HCG, LIVP #### [address] [place], [place] 3666783 Boiler Room Operator: Haris Baker MD Bilirubin [Mass/Vol] 0.7 mg/dL Normal 0.3-1.2 [facility] Comment on above: Performed By: #### B MP, CDP, LIP, HCG, LIVP #### [address] [place], [place] 96[address]83 Boiler Room Operator: Haris Baker MD Bilirubin, Indirect Can not be calculated Normal 0.0-1 .0 [facility] Comment on above: Performed By: #### B MP, CDP, LIP, HCG, LIVP #### [address] [place], [place] 3174483 Boiler Room Operator: Haris Baker MD Bilirubin.indirect [Mass/Vol] mg/dL Normal <0.3 [facility] Comment on above: Performed By: #### B MP, CDP, LIP, HCG, LIVP #### [address] [place], [facility]83 Boiler Room Operator: Haris Baker MD Protein [Mass/Vol] 7.4 g/dL Normal 6.4-8.3 [facility] Comment on above: Performed By: #### B MP, CDP, LIP, HCG, LIVP #### [facility] [address] [place], [place] 8[address]83 Boiler Room Operator: Haris Baker MD UA w/Reflex Cultureon 2023 Bilirubin, SemiQt,Ur Negative Normal NEG [facility] Comment on above: Performed By: #### U AX, UMICAO #### [address] [place], [facility]83 Boiler Room Operator: Haris Baker MD Blood, Urine Negative Normal NEG [facility] Comment on above: Performed By: #### U AX, UMICAO #### [facility] [address] [place], [facility]83 Boiler Room Operator: Haris Baker MD Clarity (U) Clear Normal CLEAR [facility] Comment on above: Performed By: #### U AX, UMICAO #### [address] [place], [facility]83 Boiler Room Operator: Haris Baker MD Color (U) Yellow Normal YEL [facility] Comment on above: Performed By: #### U AX, UMICAO #### [facility] [address] [place], [facility]83 Boiler Room Operator: Haris Baker MD Glucose Ql (U) Negative Normal NEG [facility] Comment on above: Performed By: #### U AX, UMICAO #### [facility] [address] [place], [place] 6887183 Boiler Room Operator: Haris Baker MD Ketones Ql (U) Negative Normal NEG [facility] Comment on above: Performed By: #### U AX, UMICAO #### [facility] [address] [place], [place] 8235883 Boiler Room Operator: Haris Baker MD Leukocyte esterase Test strip Ql (U) Negative Normal NEG [facility] Comment on above: Performed By: #### U AX, UMICAO #### [facility] [address] [place], [place] 5166183 Boiler Room Operator: Haris Baker MD Nitrite,Ur Negative Normal NEG [facility] Comment on above: Performed By: #### U AX, UMICAO #### [facility] [address] [place], [place] 1611483 Boiler Room Operator: Haris Baker MD PH,Ur 6.0 Normal 5.0-9.0 [facility] Comment on above: Performed By: #### U AX, UMICAO #### [address] [place], [place] 9479783 Boiler Room Operator: Haris Baker MD Protein Ql (U) Negative Normal NEG [facility] Comment on above: Performed By: #### U AX, UMICAO #### [address] [place], [place] 065[address]83 Boiler Room Operator: Haris Baker MD Spec. [place],Ur 1.010 Normal 1.010-1.020 [facility] Comment on above: Performed By: #### U AX, UMICAO #### [facility] [address] [place] [address] [place]. [place], [place] 2268583 Boiler Room Operator: Haris Baker MD Urobilinogen,Ur Normal Normal 0.0-1.0 [facility] Comment on above: Performed By: #### U AX, UMICAO #### [address] [place], [place] 977[address]83 Boiler Room Operator: Haris Baker MD Urinalysis,Microon 4 Epithelial cells LM Ql (Urine sed) None Normal 0-25 [facility] Comment on above: Performed By: #### U AXKYRAO #### [facility] [address] [place], [place] 4178483 Boiler Room Operator: Haris Baker MD Urine RBC's None Normal 0-2 [facility] Comment on above: Performed By: #### U AXKYRAO #### [facility] [address] [place], [place] 1299383 Boiler Room Operator: Haris Baker MD Urine WBC's None Normal 0-5 [facility] Comment on above: Performed By: #### U AXGUERLINE #### [facility] [address] [place] [address] Boiler Room Operator: Haris Baker MD Outside Recordson 11-27-2023 Outside Records [id number]. 00[facility] Coding Summary.on 04-23-2022 Coding Summary. CD:[id number] G h0bWw+PGhlYWQ+MX2DOGP fC08orVPjgR6YV1pGEK1E EXAPJFGGOG3UNG1ptRP4L NjhB3NzseDk SshjzUYnPN72VVq6GOE6a IhtICchbH6xzGQuO5t2Yj VwCG64yM20HDbfVPNjVaE 3LjZpbjsgbWFy Y9meFtKbuYFtGub+PHRhY mxlIHdpZHRoPScxMDAlJy KvpRtdTV9fNx1oDAHoVTJ vbGxhcHNlOiBj k6ooLPBsSVpvPI4jcNhtX 6TfbIF3GZSqx9u3Bh82kO I+KKVgTWY6tRzdTOynv31 6YkZdr8rqWRD5 nGIrPRorUFI7S11qo9J1R ZFwLSPvMBR7aJL2qL1btL vyihrbK1MpvDOfVyA9IDE 5qPMtfJ0dlUny qfpzzE2nGam+S88FII1EX NFJOJ7CNkj3G4XrPntmiG I+EA77YUMkJF38hVBlpOL fk7gxyLy2CqJl WUYyBKN0fOmvSJjtm5TxQ JCgN98luDCln1D3DATtiZ botSKmIaZfiZC9yK3bSBi eublmu5jzivvn Atqtu8xocn09rK70X05yG JyqPZAxWOD1FWQeYVDhoK meqs5ptA6yGf3+HPedo7r pt5hltPx0ZnBu NGEivtTqwKdhNNT2k5VxC o28P7SrvUdxy2WhCpu8wr 58mUQag5Z6qVM0QLzaTCC nxE5lMLyuXdE3 ZRVuRtIajB73dXZmEUsoE i0cbGsauDdxWG6wYOBnnn wqGHLzzT3lZHCnzKOvlDk tHL4rKVSrhxtq r605OhInEJR9GOYhuDLfT 4UiuT9eIoLdISTnJDKjQ1 DaqATnOOedG110USeoAwI 5MHPsrlOcM3Aw ERDxnRcuGwY2e1E6Jp0Fp 4RijpusKQG1RTqfDEE4Vy JvOqCyMwS3R9VaAyz3HHZ omRxxIF8hS9Xv YMXefrihdhsciBA0YVRwK NUzjF69fSXqAVaaUl3tn7 A6s391PZAaCSZiyQ16Px2 udDogMTBwdCBU gY5bruuaw4lpsgztQmWeD HBxPGm3GXf7WBChlHkhPn GzTAH3ObG9IQX8fSRnpN9 bgOlwbthghB3y Oyc+C66tvC7uBNO5FWE5p wuqJOCsczJgEN03CL53N1 RyPjwvdGFibGU+PGRpdiB ctUmcAO5qDdTe t7mrt9BoUSttT4VrEWXeM YonLbh9EGYmZJD9yGA4uV 7iAEOsWYqwa2L9fBY4J7I xaxZjgj8ac7td EQWlZCkzP13gbNHug9K8N WJukRU2RRBhuMdzQfOjaN 93Oyc+VPScmThbq6LyUpz ua1ogf9egrXp0 UcNnKFXpaeJrlKcqGFB2g 1DkVz31C70kLOxuSJVrCN VcXGKhJQJleFbrne8bzZ1 wIi8+PGNvbCB3 jAU4uU4jTBXfVcF8YZwkY 111XnEqtUPwMovvu2rjt9 wvfTl4RcCkJPWkmhRsfMi aJRV6c2FkAr97 L21uIUebNRKoQRLjTAXgJ NKszUvjfq7jyH6xZo0+PC 8al7tvgg96fF73wLY+PHR vQTI4rFedDIze IGRigM6oOMcjNeD3SCYvR mQrvI09cDUsFDexDd5hpV jxgNjyON7nVDRznvmyb51 2KcKoq9gdJSXz lDTeWTrpIAM9S59bo8B5O WHxWPNtFQV9fWX0hO9hmK lnbjogbGVmdDsgdmVydGl aAZkzGEfcM761 IHRvcDsnPlBhdGllbnQgT xYyAJz7V8BjDje3KVAwbR mzEU0zzDZdFRzjPl3zvZp hyCkjHM9hDJEf dnpvx182QdNou8xnZSGkn BVmEStsFNF4C38zq2N7HC UaYPXhMTT6sGJ0vT2ktEn nbjogbGVmdDsg tgEiuGigBMtkWUghG632T HRvcDsnPkJpcnRoIERhdG W4BY84WX65tAOwx7D7xVG 8U6JjAGOqadwl cotddRO1MAUhHUOzfI28Q o1kzXgoVr7bIVDfFER9CA JtxRWoE1UhaN4fHrVmPRV jDVZfJ8TuvRCh KPvcM000AHjsDeJ4TSEap wPmI2OrBJPwwFvsOeA6v6 F0Qa3BC7P4XN98FK19sKI zq3W0bDW9H1Kd JAZnemljckmzvWE3WMIcP PSycR98Je0zrDkxGv6zOD LsYVX1XJVakHOyV3PimI0 yOiAjMDAwMDAw W5ZcsDDpYYveH854WXdaU eY2RBZhoiJsN9NjQDBitM tiUaB0o4Q0Hy9VBKh0ZX4 4PH05qVNqq3D4 bVT1X5RvNKKwbzdaujoos CS8DIRqIYFaoZ28Nz8vtZ zvGe0oWDGqFBJ6RNWucIK eT4KhjD9uNkTu SAHrUIZiP5TwySWrADreU 555LKpiPiZ2RBWrrwQzO1 VhMQAyhBbrGmV0o5J4Je4 WZSNlDZ20ONA4 qFN4JT68SN14F6VjXmjxz GFibGU+PHRhYmxlIHdpZH RoPScxMDAlJyBzdHlsZT0 lMt1jALSqLEIo vSkxqOUtToLjf0wiPGOfM ZhgTS7wuRjaR4QfnIM9PY Mfb9c4Hk03I97mF1FaoOX +EAHorRE1nGM2 uT0tSjRxBwQ0NByhV524X dVxmPXrJvjxu0hws8zfoE c3EsS8JMGnvfEcaPudKCB 6i5TvWz81T45p IHdpZHRoPSIxNSUiIHZhb Nokww5yjN0aMo7+PGNvbC O3lRI6lV4iCiZgCeP7PCg oU217MwPdqSLu Zxtqb0awn0ifiDd3ZkJqZ WJoolOogIbbJTN7g8ZwYl 17A6PbbHuse0IbLil4gc3 6iUJvs0B4yGN3 L6FxAIUzeaxefFOxzIfmM L9fJSFatkvrACDoyO3pBW QoR3u8PaDpTuU3JPbjK0C jfzY7QPWbkVCe BNbzOUD5W18mk2O2KEXjI EBpKNN9yTK6fZ5cpQspie ogbGVmdDsgdmVydGljYWw wLHkqM712NQZi eSqkMLQtwN0dETEgjVNuc CscSF5xDVTttjgaXhkRZS CeNU0EJ92TSFQSVZ95BM8 2vXAnd6Y8rOW0 F6FeLZBysvvbwpdsvFO7W IKeMGLpiZ02aXTgQRfsGv 8yj2I3v162NIRaKBItuE0 2Cu1fxIgoBZKb wVCQmJ6hchhge9jdcsslD gYhDFZdFLl7LDd8SXRgkS fsShFsEVL5VoC9DLO7yWY eqK1hmCxzascg dK5oIib+WDShIIIjYWt0C TwvdGQ+IUFsHTM4iKtbRN ryNCTqyP3nBQKkT6h3LgW qZbP8WRnrP2Pb BHJirqnxUh43zK9iUaPcP oV1ZRkjM3AjhiI3OMLzxY BuZDvvKNZ2J12bk9L6JPA iLTCzGIY3yKT1 zH0lzIgcrystpIComQbgy kEnkDbuKPjpXSryO960LN RvcDsnPjQzIFllYXJzPC9 6CU20aPOod5O0 qJY3L5PxWTZzbxxoityje HV0GEZhELEueT30vXQjAZ keHj7nk2K8k247RASeVVX yaN15Qt5thOmd MWUujIEZrU5qofyxg6mvf fgbMbJkROTtUKz2TGs3KP RtpYuvZgBbNIY0AtK0UOL 9xOBpfJ0dzFfc hotvbB1kObm+RmVtYWxlP P44YE11tJCjw6H6sMH4X6 WcFIZujghegjzrrIJ5FSA gAOWyzM75pBKl CFdoYl2bd9Q7f674AZVpI VLocP10Np3emPszZYUyoM CDhW6wjixze1xuibxdTrI aSVQqWNh0NYz2 ETAzfYfxZeNaORQ4HdP1T WF7lRNzmS8ocMdehejryZ 9wOyc+OM6eulunrnM4II2 3PB23W6FwZlbw dGFibGU+PHRhYmxlIHdpZ HRoPScxMDAlJyBzdHlsZT 5bEm3pDUUmPKVwyLrkrAX cIlOeu1srGJQf SUhgVF4fcOrjK2CvxCP7D VJiu0f2Yx36G10zA1JwjX A+VKQyiXR2wXL7lK8uPeJ wEpS8GKrrX855 DdKrwZRpQjdvi8gxb6uev Rd1VnPxLVAawlAisOzjCD G1v3SgAk22H85nHGxtYOZ oPSIyMCUiIHZh vSzifl9opE6dIm0+PGNvb VP6qKP8sC6eVdGqJiF8IL klZ338InZetUPbExezK54 wR5AquEC+PHRy Krv8RJHznNcxYM9urMPsQ WwbHf4dETS3ZnOlAgCtYB peT3DlOCJoozcukmayyNB 3EHZiBYEypH00 Zd6hpLmaAr9hCYNjEWV0B WFfaVPlP4XluA6sOrBmPM UpTOPxG7HvcBQcQGfmD48 8RAraJkC2WVMp xnTuD7RuLKBboUwnNpP5j 7M7Yp2OoNtdzSMyGK6lJe ObEJh9R4EfOhb3JRHhyCx yFP1qtEMbWSrp If4cqVfkgYmpNL3wPAQkz odss011ZaNis4bkHHKbaD YtHZtmYCO8P28qw7O8JAL eLWQdAUY8hZZ5 lK3tkLijeqswjYVvkTmjm zEndAhuZLfcQDykQ356RE AigTmzUnTTOpr4I2IpKxg 4DFUgzFykFD7x zILfLLrsDv2wvVmsoOibM Q5kQAFmgjfcv461ZwHpg0 vxVGEazXBfBEhvXCI7W40 ab8O1EMEtEJYw JPW2iFC3zT7miAskfobwv GVmdDsgdmVydGljYWwtYW waA860HWIqkQbsJi6UNck 2Y2XqYcn6JWLe hWudIX8hpWUmFCvqRr6fb VkgfTmbXC1gNZYeurhfn9 19WgWaj1ixHOWcdKVmHGx cKJZ9U88pe1A3 CXShTVGiHOB4oVK6wV7hx GlnbjogbGVmdDsgdmVydG tvZBnqBUwiI149OAJmfEw nPlBheWVyOjwv dGQ+BS20ip78T7LtOgrxL xg7MZAoZCW9gFQ5pQ2vPD WmTInuq8O5rZR0P0WiisH dik0zz8jiIPNt ZTog (more content not included)... [facility] ED Note-Physicianon 04-23-20 ED Note-Physician Basic Information [...] seen and evaluated by the physician assistant librarian. Attending physician was present in the emergency department and supervised care. This visit was performed by both the physician and an APC. I performed all aspects of the MDM as documented. This report was transcribed using voice recognition software. Every effort was made to ensure accuracy, however, inadvertently computerized corporate health consultant mistakes may be present. Appropriate healthcare PPE [...] Diagnostic Results No qualifying data available. [facility] Comment on above: Result Comment: Elec tronically Signed By: Keenan Charles PA-C\.br\Date and Time Signed: 04/22/22 11:45 EDT\.br\Electronically Co-Signed By: Philippe Rice DO\.br\Date and Time Co-Signed: 04/23/22 07:13 EDT Consent for Treatmenton Consent for Treatment [id number] .00CD:127 [facility] Discharge Instructionson Discharge Instructions [id number]# 1.00CD:127 [facility] ED Clinical Summaryon 2021 ED Clinical Summary [address] [address] ED Clinical Summary Person Information Name: NISA ARSHAD [facility] Age: 42 Years : 1980 Sex: Female Language: Belarusian PCP: DARRON MCMILLAN DO Marital Status: Single [...] 04/22/2022 12:02:06 04/22/2022 12:02:06 04/22/2022 12:02:06 ADDRESS: [address] [place] [address] [place] [phone] PHYS DOC NOTES: MEDICAL INFORMATION: Prescriptions Given: [...] days 04/25/2022 DIAGNOSIS: Cellulitis; Contact dermatitis [facility] ED Patient Education Noteon 04-22-2022 ED Patient [...] job, you may need to see an hiv cts specialist. How is this treated? This condition [...] and dyes. Medicines ? Take or apply mzkm-pwb-lzzjvtz and prescription medicines only as told by [...] and water are not available, use hand robotic machine tender production. General instructions ? Avoid the substance that [...] away if: (more content not included)... [facility] ED Patient Summaryon 022 ED Patient Summary [place] [id number] Patient Discharge Instructions Person Information Name: NISA ARSHAD Age: 42 Years [facility]: [id number] Arrival Date: 04/22/2022 11:32:43 Discharge Diagnosis: Cellulitis; Contact dermatitis Primary Care Physician: DARRON MCMILLAN DO Provider Information Primary Provider: Philippe Rice DO Advanced Strategic Business Development:Keenan Charles PA-C The exam and treatment you received in the Emergency Department were for an urgent problem and are not intended as complete care. It is important that you follow up with a doctor, nurse practitioner, or physician?s assistant librarian for ongoing care. If your symptoms become [...] opioids can be used to help relieve ltaepcfy-ox-wpzfce pain and are often prescribed following a [...] be struggling with addiction, tell your health care administrative tech and ask for guidance or call SAMHSA?S National Helpline at 1-592-297-MSGU. v Source: [place] Department of Health and Human Services/Center for (more content not included)... Normal [facility] Vital Signs Date Time Vital Sign Value Performing Clinician Nicole alonzo 04-22-2022 11:35-0400 Body temperature 97.88 [degF] Philippe Krystal [facility] 04-22-2022 11:35-0400 Diastolic blood pressure 89 mm[Hg] Philippe Rice [facility] 04-22-2022 11:35-0400 Heart rate 93 /min Philippe Rice [facility] 04-22-2022 11:35-0400 SaO2% (BldA) [Mass fraction] 100 % Philippe Rice [facility] 04-22-2022 11:35-0400 Systolic blood pressure 142 mm[Hg] Philippe Rice [facility] Encounters Encounter Date Encounter Type Care Provider Facility Start: 12-16-2023 End: 12-16-2023 Emergency department patient visit [facility] Start: 12-10-2023 End: 12-10-2023 ambulatory Darron Mcmillan Facility: [facility] Start: 12-03-2023 ambulatory Darron Mcmillan [facility] Start: 11-26-2023 End: 11-26-2023 ambulatory Darron Mcmillan Facility: [facility] Start: 03-17-2023 End: 03-17-2023 Emergency department patient visit Magdi Gutierrez Facility:[facility] Start: 04-22-2022 End: 04-22-2022 Emergency department patient visit Philippe Rice [facility] Payers Date Payer Category Payer Medicaid [id number] 2023 Self-pay 2022 Unknown [id number] 1979 Unknown [id number] [id number] [id number] 1979 Unknown [id number] 2.16.8 [id number] 1979 Unknown [id number] 2.16.8 [id number] 1979 Unknown [id number] 2.16.8 [id number] Unknown [id number] 2.16.8 [id number] Social History Date Type Detail Facility Tobacco smoking status No Smoking Status Entered [facility] Sex Assigned At Female [facility] Functional Status Date Assessment Result Facility 04-22-2022 Functional Status N/A [facility] Medication management note 11-12-2024 Note Date & Type Note Facility 11-12-2024 Note - From: Anjali Solis RN ([facility] ([facility] To: Darron Mcmillan DO; Sent: 11/12/2024 07:24:11 EST Subject: FW: Medication Management Due Date/Time: 11/12/2024 20:33:00 EST Caller Name: JEANCARLOS NISA VENESSA; Caller Number: , From: [id number] To: Molly Ferrer CNP Sent: November 11, 2024 7:33:29 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 Subject: Medication Management Due: November 12, 2024 2:55:35 AM 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 On Hold Pending Signature Dispensed Drug: gabapentin (gabapentin 300 mg oral capsule), TAKE 1 CAPSULE BY MOUTH TWICE A DAY Quantity: 60 cap(s) Days Supply: 30 Refills: 1 Substitutions Allowed Notes from Pharmacy: DX Code Needed . Submitted: Order:gabapentin (gabapentin 300 mg oral capsule) 1 cap(s) Oral BID Qty: 60 cap(s) Days Supply: 30 Refills: 1 Substitutions Allowed Route To Pharmacy - [facility]/pharmacy #[id number] oarrs 08/30/24 Signed by Darron Mcmillan DO 11/12/2024 07:37:00 EST [facility] Medication management note 08-30-2024 Note Date & Type Note Facility 08-30-2024 Note - From: Anjali Solis RN ([facility] ([facility] To: Molly Ferrer CNP; Sent: 08/30/2024 07:32:13 EST Subject: FW: Medication Management Due Date/Time: 08/30/2024 19:47:00 EST Caller Name: NISA ARSHAD; Caller Number: H , M Patient matched by Anjali Solis RN on 08/30/2024 07:31:32 EST From: [id number] To: Darron Mcmillan DO Sent: August 27, 2024 6:47:15 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 Subject: Medication Management Due: August 28, 2024 12:10:08 AM 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 On Hold Pending Signature Dispensed Drug: gabapentin [...] 1 Substitutions Allowed Route To Pharmacy - [facility]/pharmacy #[id number] oarrs 08/30/24 Signed by Molly Ferrer [...] 1 Substitutions Allowed Route To Pharmacy - [facility]/pharmacy #[id number] Signed by Molly Ferrer APRN, CNP [facility] Medication management note 07-06-2024 Note Date & Type Note Facility 07-06-2024 Note - From: Anjali Solis RN ([facility] ([facility]) To: Darron Mcmillan DO; Sent: 07/05/2024 07:48:44 EDT Subject: FW: Medication Management Due Date/Time: 07/05/2024 15:24:00 EDT Caller Name: NISA ARSHAD; Caller Number: , M Patient matched by Anjali Solis RN on 07/05/2024 07:48:06 EDT From: [id number] To: Darron Mcmillan DO Sent: July 04, 2024 2:24:05 PM CDT Subject: Medication Management Due: July 05, 2024 1:49:36 AM CDT On Hold Pending Signature Dispensed Drug: gabapentin (gabapentin 300 mg oral capsule), TAKE 1 CAPSULE BY MOUTH TWICE A DAY Quantity: 60 cap(s) Days Supply: 30 Refills: 0 Substitutions Allowed Notes from Pharmacy: From: Molly Ferrer APRN, CNP To: [facility]/pharmacy #[id number] Sent: 07/06/2024 12:29:33 EDT Subject: FW: Medication Management Not Approved: Refill not appropriate, just filled 07/04/24 gabapentin (GABAPENTIN 300 MG CAPSULE) TAKE 1 CAPSULE BY MOUTH TWICE A DAY Qty: 60 cap(s) Days Supply: 30 Refills: 0 Substitutions Allowed Route To Pharmacy - [facility]/pharmacy #[id number] Signed by Molly Ferrer APRN, CNP [facility] Medication management note 04-28-2024 Note Date & Type Note Facility 04-28-2024 Note - From: Anjali Solis RN ([facility] ([facility]) To: Darron Mcmillan DO; Sent: 04/28/2024 07:40:08 EDT Subject: FW: Medication Management Due Date/Time: 04/29/2024 00:47:00 EDT Caller Name: JEANCARLOS NISA NAJERAN; Caller Number: , From: [facility] #[id number] To: Darron Mcmillan DO Sent: April 27, [...] Allowed Route To Pharmacy - [facility] #[id number] [facility] reviewed 12/19/20 Signed by Darron Mcmillan DO 04/28/2024 07:43:00 EDT [facility] Medication management note 03-30-2024 Note Date & Type Note Facility 03-30-2024 Note - From: Anjali Solis RN ([facility] ([facility])) To: Darron Mcmillan DO; Sent: 03/30/2024 12:59:30 [...] Allowed Route To Pharmacy - [facility] #[id number] [facility] reviewed 12/19/20 Signed by Darron Mcmillan DO 03/30/2024 13:00:00 EDT [facility] Medication management note 12-22-2023 Note Date & Type Note Facility 12-22-2023 Note - From: Anjali Solis RN ([facility] ([facility])) To: Darron Mcmillan DO; Sent: 12/22/2023 07:33:26 EDT Subject: FW: Medication Management Due Date/Time: 12/22/2023 19:27:00 EDT Caller Name: NISA ARSHAD; Caller Number: Feliberto , M From: [facility] #[id number] To: Darron Mcmillan DO Sent: December 19, [...] Allowed Route To Pharmacy - [facility] #[id number] [facility] reviewed 12/19/20 Signed by Darron Mcmillan DO 12/22/2023 07:34:00 EDT [facility] Discharge instructions 04-22-2022 Note Date & Type [...] job, you may need to see an hiv cts specialist. How is this treated? This condition [...] perfumes, and dyes. 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 General instructions Avoid the substance that caused [...] 09/05/2001 Document Revised: 12/29/2019 Document Reviewed: 03/24/2019 [employer] Patient Education 2020 [employer]. 04/22/2022 12:02:06 Cellulitis, Adult Cellulitis, Adult Cellulitis [...] Follow these instructions at home: Medicines Take mluk-eyf-eefduoa and prescription medicines only as told by [...] such as antibiotic medicines or antihistamines. Take xpdk-lkh-gcwtbcy and prescription medicines only as told by [...] 06/18/2006 Document Revised: 01/28/2019 Document Reviewed: 01/28/2019 [employer] Patient Education [facility] Follow Up Care 04/22/2022 11:34:55 With:DARRON MCMILLAN Address:Unknown When:04/25/2022 11:40:33 [facility] Evaluation + Plan note Note Date & Type Note Facility Evaluation + Plan note No data available for this section [facility] Progress note Note Date & Type Note Facility Progress note No data available for this section [facility] Summary Purpose Family History No Family History Records FoundNo Family History Records FoundNo Family History Records FoundNo Family History Records Found Advance Directives No Advanced Directives Records FoundNo Advanced Directives Records FoundNo Advanced Directives Records FoundNo Advanced Directives Records Found Additional Source Comments Care Team (unrecognized sect ion and content) Personnel Name: DARRON MCMILLAN DO Address: [address] [place] [address]- INFORMATION SOURCE (unrecogn ized section and content) DATE CREATED AUTHOR 04/24/2022 [facility] DATE CREATED AUTHOR AUTHOR'S ORGANIZ ATION 04/02/2023 [facility] DATE CREATED AUTHOR AUTHOR'S ORGANIZ ATION 12/17/2023 [facility] DATE CREATED AUTHOR AUTHOR'S ORGANIZ ATION 11/14/2024 [facility] FOR RECORDS PERTAINING TO PATIENTS WHO [...] BE BASED ON THE PRIMARY CLINICAL RECORDS. [employer] [facility]. provides no warranty or guarantee of the accuracy or completeness of information in this document.
--- NOTE | 2024-12-26 23:34 | ED.EXTPRO1 ---
HPI - Extremity Problem General Chief complaint: Extremity Problem, Nontraumatic Stated complaint: LEFT WRIST PAIN Time Seen by Provider: 12/26/24 23:30 Source: patient Mode of arrival: walk-in Limitations: no limitations History of Present Illness HPI Narrative: patient has job requiring repetitive use of her hands. Presents complaining of pain of her left wrist and thumb. No weakness or numbness Related Data Home Medications ?Medication ?Instructions ?Recorded ?Confirmed clonazepam 0.5 mg tablet 0.5 mg PO DAILY PRN anxiety 02/02/24 12/26/24 gabapentin 300 mg capsule 300 mg PO Q12H 02/02/24 12/26/24 Previous Rx's ?Medication ?Instructions ?Recorded clindamycin HCl 300 mg capsule 300 mg PO Q8H 7 days #21 caps 02/02/24 clindamycin HCl 150 mg capsule 300 mg (2 x 150 mg) PO Q6H 10 days 11/16/24 #80 caps ketorolac 10 mg tablet 10 mg PO TID PRN pain #10 tabs 11/16/24 Allergies Allergy/AdvReac Type Severity Reaction Status Date / Time No Known Drug Allergies Allergy Verified 12/26/24 23:29 Review of Systems ROS Status of ROS 10 or more systems reviewed and unremarkable except as noted in history and below PFS PFS Social History Little interest or pleasure in doing things: not at all Feeling down, depressed, or hopeless: not at all Exam Constitutional Vital Signs, click to edit/add: Last Vital Signs Temp 98.2 F 12/26/24 23:25 Pulse 85 12/26/24 23:25 Resp 16 12/26/24 23:25 BP 142/80 H 12/26/24 23:25 Pulse Ox 100 12/26/24 23:25 O2 Del Method Room Air 12/26/24 23:25 Common normals: no apparent distress, average body habitus, oriented x3, no limitations, healthy appearing, alert and well nourished [facility] Common normals: normocephalic and head/scalp atraumatic Respiratory Common normals: normal respiratory effort, no retractions, no use of accessory muscles and clear to auscultation bilaterally Cardio Common normals: regular rate, regular rhythm, S1 normal heart sound and S2 normal heart sound Extremity Other: increased pain left wrist with extension left thumb. tenderness left wrist overlying radial extensor tendon. no swelling Course Vital Signs Vital signs: Vital Signs Temperature 98.2 F 12/26/24 23:25 Pulse Rate 85 12/26/24 23:25 Respiratory Rate 16 12/26/24 23:25 Blood Pressure 142/80 H 12/26/24 23:25 Pulse Oximetry 100 12/26/24 23:25 Oxygen Delivery Method Room Air 12/26/24 23:25 Temperature 98.2 F 12/26/24 23:25 Pulse Rate 85 12/26/24 23:25 Respiratory Rate 16 12/26/24 23:25 Blood Pressure 142/80 H 12/26/24 23:25 Pulse Oximetry 100 12/26/24 23:25 Oxygen Delivery Method Room Air 12/26/24 23:25 MDM - Extremity (Nontraumatic) MDM Narrative Medical decision making narrative: patient presents with pain and tenderness of the extensor tendons left wrist and thumb. Advised of working diagnosis of tendonitis. Placed in a splint and advised to follow up with orthopedics Discharge Plan Discharge Chief Complaint: Extremity Problem, Nontraumatic Clinical Impression: Tenosynovitis, de Quervain Patient Disposition: Home, Self-Care Prescriptions / Home Meds: No Action clindamycin HCl 150 mg capsule 300 mg PO Q6H 10 Days Qty: 80 0RF ketorolac 10 mg tablet 10 mg PO TID PRN (Reason: pain) Qty: 10 0RF clonazepam 0.5 mg tablet 0.5 mg PO DAILY PRN (Reason: anxiety) gabapentin 300 mg capsule 300 mg PO Q12H clindamycin HCl 300 mg capsule 300 mg PO Q8H 7 Days Qty: 21 0RF Print Language: Moldovan Instructions: Tenosynovitis (ED) Additional Instructions: follow up with orthopedics Dr [place]inas within one week Referrals: BOB HUMPHRIES [Primary Care Provider] - 1 week
== END 2024-12-27 00:04 | disposition home or self-care (01) ==
PROVIDERS: Emergency Provider Internal Medicine; PCP Family Medicine
DX: M65.4 Radial styloid tenosynovitis [de Quervain] (principal); M25.532 Pain in left wrist
CPT/HCPCS: 99283

== ENCOUNTER 2025-01-03 12:14 | Emergency (ER) | payer OTHER, SELFPAY ==
[2025-01-03 12:22] VITALS: BP 132/90; PULSE 105; TEMP 36.7; O2SAT 100; BMI 25.7
--- OUTSIDE RECORDS SUMMARY | 2025-01-03 12:39 | XMS_ITS | CCD ---
Author Organization [facility] Informat ion Partnership [facility] Care Team Providers Care Document Preparation Specialist Name Role Phone DARRON MCMILLAN Primary Care Physician Magdi Gutierrez Admitting Unavailable Magdi Gutierrez Attending Unavailable Darron Mcmillan Primary Care Unavailable ESTUARDO ECHEVERRIA Attending Unavailable Medications Current Medications Medication Drug Class(es) Dates [...] Name Value Interpretation Reference Range Facil ity ED Note - Physicianon 2024 ED Note - Physician [id number] 4 [id number] #[id number] Outside Recordson 02-03-2024 Outside Records [id number]#1 .[id number] [facility] Basic Metabolic Profon 12-15 Anion gap [Moles/Vol] 10 mmol/L Normal - [facility] Comment on above: Performed By: #### B MP, CDP, LIP, HCG, LIVP #### [facility] [address] [place] [address] [place] [address] [employer] Operator: Haris Baker MD BUN/CRE Ratio 10 Normal 9- [facility] Comment on above: Performed By: #### B MP, CDP, LIP, HCG, LIVP #### [facility] [address] [place] [address] [place] [address] [employer] Operator: Haris Baker MD Calcium [Mass/Vol] 9.0 mg/dL Normal 8.6-10.4 [facility] Comment on above: Performed By: #### B MP, CDP, LIP, HCG, LIVP #### [facility] [address] [place] [address] [place] [address] [employer] Operator: Haris Baker MD Chloride [Moles/Vol] 102 mmol/L Normal 98-107 [facility] Comment on above: Performed By: #### B MP, CDP, LIP, HCG, LIVP #### [facility] [address] [place] [address] [place] [address] [employer] Operator: Haris Baker MD CO2 [Moles/Vol] 25 mmol/L Normal 20-31 [facility] Comment on above: Performed By: #### B MP, CDP, LIP, HCG, LIVP #### [facility] [address] [place] [address] [employer] Operator: Haris Baker MD Creatinine [Mass/Vol] 0.7 mg/dL Normal 0.5-0.9 [facility] Comment on above: Performed By: #### B MP, CDP, LIP, HCG, LIVP #### [facility] [address] [place] [address] [employer] Operator: Haris Baker MD GFR/1.73 sq M.predicted among non-blacks MDRD (S/P/Bld) [Vol rate/Area] mL/min/{1.73_m2} Normal >60 [facility] Comment on above: Result [...] B MP, CDP, LIP, HCG, LIVP #### [address] [place] [address] [employer] Operator: Haris Baker MD Glucose [Mass/Vol] 138 mg/dL High 70-99 [facility] Comment on above: Performed By: #### B MP, CDP, LIP, HCG, LIVP #### [facility] [address] [place] [address] [employer] Operator: Haris Baker MD Potassium [Moles/Vol] 3.4 mmol/L Low 3.7-5.3 [facility] Comment on above: Performed By: #### B MP, CDP, LIP, HCG, LIVP #### [facility] [address] [place] [address] [employer] Operator: Haris Baker MD Sodium [Moles/Vol] 137 mmol/L Normal 135-144 [facility] Comment on above: Performed By: #### B MP, CDP, LIP, HCG, LIVP #### [facility] [address] [place], [place] [id number] [employer] Operator: Haris Baker MD Urea nitrogen [Mass/Vol] 7 mg/dL Normal 6-20 [facility] Comment on above: Performed By: #### B MP, CDP, LIP, HCG, LIVP #### [facility] [address] [place], [place] [id number] [employer] Operator: Haris Baker MD CBC with Diffon 12-16-2023 Abs. Basophil 0.05 k/uL Normal 0.00-0.20 [facility] Comment on above: Performed By: #### B MP, CDP, LIP, HCG, LIVP #### [address] [place], [place] [id number] [employer] Operator: Haris Baker MD Abs.Imm.Granulocyte <0.03 Normal 0.00-0.30 [facility] Comment on above: Performed By: #### B MP, CDP, LIP, HCG, LIVP #### [address] [place], [place] 8[address]83 [employer] Operator: Haris Baker MD Abs.Neutrophil (Seg) 5.73 k/uL Normal 1.50-8.10 [facility] Comment on above: Performed By: #### B MP, CDP, LIP, HCG, LIVP #### [address] [place], [place] [address]78283 [employer] Operator: Haris Baker MD Basophils/100 WBC (Bld) 1 % Normal 0-2 [facility] Comment on above: Performed By: #### B MP, CDP, LIP, HCG, LIVP #### [facility] [address] [place] [address] [place] [place], [place] [id number] [employer] Operator: Haris Baker MD Eosinophils (Bld) [#/Vol] 0.19 10*3/uL Normal 0.00-0.44 [facility] Comment on above: Performed By: #### B MP, CDP, LIP, HCG, LIVP #### [address] [place], [place] [address]83 [employer] Operator: Haris Baker MD Eosinophils/100 WBC (Bld) 2 % Normal 1-4 [facility] Comment on above: Performed By: #### B MP, CDP, LIP, HCG, LIVP #### [address] [place] [address] [employer] Operator: Haris Baker MD Erythrocyte distribution width (RBC) [Ratio] 12.5 % Normal 11.8-14.4 [facility] Comment on above: Performed By: #### B MP, CDP, LIP, HCG, LIVP #### [address] [place], [place] 1378583 [employer] Operator: Haris Baker MD Hematocrit (Bld) [Volume fraction] 44.6 % Normal 36.3-47.1 [facility] Comment on above: Performed By: #### B MP, CDP, LIP, HCG, LIVP #### [address] [place], [place] [address]83 [employer] Operator: Haris Baker MD Hemoglobin (Bld) [Mass/Vol] 14.7 g/dL Normal 11.9-15.1 [facility] Comment on above: Performed By: #### B MP, CDP, LIP, HCG, LIVP #### [address] [place] [address] [employer] Operator: Haris Baker MD Immature granulocytes/100 WBC (Bld) 0 % Normal 0 [facility] Comment on above: Performed By: #### B MP, CDP, LIP, HCG, LIVP #### [address] [place], [place] [address]83 [employer] Operator: Haris Baker MD Lymphocytes (Bld) [#/Vol] 3.07 10*3/uL Normal 1.10-3.70 [facility] Comment on above: Performed By: #### B MP, CDP, LIP, HCG, LIVP #### [address] [place] [address] [employer] Operator: Haris Baker MD Lymphocytes/100 WBC (Bld) 32 % Normal 24-43 [facility] Comment on above: Performed By: #### B MP, CDP, LIP, HCG, LIVP #### [address] [place] [address] [employer] Operator: Haris Baker MD MCH (RBC) [Entitic mass] 29.5 pg Normal 25.2-33.5 [facility] Comment on above: Performed By: #### B MP, CDP, LIP, HCG, LIVP #### [address] [place], [facility] [employer] Operator: Haris Baker MD MCHC (RBC) [Mass/Vol] 33.0 g/dL Normal 28.4-34.8 [facility] Comment on above: Performed By: #### B MP, CDP, LIP, HCG, LIVP #### [address] [place], [facility] [employer] Operator: Haris Baker MD MCV (RBC) [Entitic vol] 89.4 fL Normal 82.6-102.9 [facility] Comment on above: Performed By: #### B MP, CDP, LIP, HCG, LIVP #### [address] [place] [address] [employer] Operator: Haris Baker MD Monocytes (Bld) [#/Vol] 0.70 10*3/uL Normal 0.10-1.20 [facility] Comment on above: Performed By: #### B MP, CDP, LIP, HCG, LIVP #### [facility] [address] [place], [place] [address]83 [employer] Operator: Haris Baker MD Monocytes/100 WBC (Bld) 7 % Normal 3-12 [facility] Comment on above: Performed By: #### B MP, CDP, LIP, HCG, LIVP #### [facility] [address] [place], [facility] [employer] Operator: Haris Baker MD Neutrophil (Seg) 58 % Normal 36-65 [facility] Comment on above: Performed By: #### B MP, CDP, LIP, HCG, LIVP #### [facility] [address] [place], [facility]83 [employer] Operator: Haris Baker MD NRBC Automated 0.0 per 100 WBC Normal 0.0 [facility] Comment on above: Performed By: #### B MP, CDP, LIP, HCG, LIVP #### [address] [place], [place] [address]77483 [employer] Operator: Haris Baker MD Platelet mean volume (Bld) [Entitic vol] 10.3 fL Normal 8.1-13.5 [facility] Comment on above: Performed By: #### B MP, CDP, LIP, HCG, LIVP #### [address] [place], [facility] [employer] Operator: Haris Baker MD Platelets (Bld) [#/Vol] 289 10*3/uL Normal 138-453 [facility] Comment on above: Performed By: #### B MP, CDP, LIP, HCG, LIVP #### [address] [place], [place] [address]25483 [employer] Operator: Haris Baker MD RBC (Bld) [#/Vol] 4.99 10*6/uL Normal 3.95-5.11 [facility] Comment on above: Performed By: #### B MP, CDP, LIP, HCG, LIVP #### [facility] [address] [place] [address] [employer] Operator: Haris Baker MD WBC (Bld) [#/Vol] 9.8 10*3/uL Normal 3.5-11.3 [facility] Comment on above: Performed By: #### B MP, CDP, LIP, HCG, LIVP #### [facility] [address] [place], [place] [address]83 [employer] Operator: Haris Baker MD CT ABDOMEN PELVIS [...] Barry Sherman MD 12/16/23 Final result Normal [facility] HCG Screen, Bloodon 12-16-19 HCG Screen, Blood Negative Normal NEG [facility] Comment on above: Result Comment: Spec imens with hCG levels near the threshold of the test (25 mIU/mL) may give a negative or indeterminate result. In such cases, another test should be performed with a new specimen in 48-72 hours. If early is suspected clinically in this setting, correlation with quantitative serum b-hCG level is suggested. [facility] has confirmed the use of plasma for this test. This has not been cleared or approved by the [place]. Food and Drug Administration. The FDA has determined that such clearance is not necessary. Performed By: #### B MP, CDP, LIP, HCG, LIVP #### [facility] [address] [place] [address] [place] [address] [employer] Operator: Haris Baker MD Lipaseon 12-16-2023 Lipase [Catalytic activity/Vol] 22 U/L Normal 13-60 [facility] Comment on above: Performed By: #### B MP, CDP, LIP, HCG, LIVP #### [address] [place] [address] [employer] Operator: Haris Baker MD Liver Profileon 12-16-2023 Albumin [Mass/Vol] 4.0 g/dL Normal 3.5-5.2 [facility] Comment on above: Performed By: #### B MP, CDP, LIP, HCG, LIVP #### [facility] [address] [place] [address] [employer] Operator: Haris Baker MD Albumin/Glob Ratio 1.2 Normal 1.0-2.5 [facility] Comment on above: Performed By: #### B MP, CDP, LIP, HCG, LIVP #### [facility] [address] [place] [address] [employer] Operator: Haris Baker MD Alkaline Phos 58 U/L Normal 35-104 [facility] Comment on above: Performed By: #### B MP, CDP, LIP, HCG, LIVP #### [facility] [address] [place], [place] [address]83 [employer] Operator: Haris Baker MD ALT [Catalytic activity/Vol] 14 U/L Normal 5-33 [facility] Comment on above: Performed By: #### B MP, CDP, LIP, HCG, LIVP #### [facility] [address] [place] [address] [place] [place], [place] 6[address]1383 [employer] Operator: Haris Baker MD AST [Catalytic activity/Vol] 13 U/L Normal <32 [facility] Comment on above: Performed By: #### B MP, CDP, LIP, HCG, LIVP #### [address] [place], [place] [address]83 [employer] Operator: Haris Baker MD Bilirubin [Mass/Vol] 0.7 mg/dL Normal 0.3-1.2 [facility] Comment on above: Performed By: #### B MP, CDP, LIP, HCG, LIVP #### [address] [place], [place] 3349383 [employer] Operator: Haris Baker MD Bilirubin, Indirect Can not be calculated Normal 0.0-1 .0 [facility] Comment on above: Performed By: #### B MP, CDP, LIP, HCG, LIVP #### [facility] [address] [place] [address] [place] [place], [place] 3[address] [employer] Operator: Haris Baker MD Bilirubin.indirect [Mass/Vol] mg/dL Normal <0.3 [facility] Comment on above: Performed By: #### B MP, CDP, LIP, HCG, LIVP #### [address] [place], [place] 375[address]83 [employer] Operator: Haris Baker MD Protein [Mass/Vol] 7.4 g/dL Normal 6.4-8.3 [facility] Comment on above: Performed By: #### B MP, CDP, LIP, HCG, LIVP #### [facility] [address] [place] [address] [employer] Operator: Haris Baker MD UA w/Reflex Cultureon 2023 Bilirubin, SemiQt,Ur Negative Normal NEG [facility] Comment on above: Performed By: #### U AX, UMICAO #### [facility] [address] [place] [address] [employer] Operator: Haris Baker MD Blood, Urine Negative Normal NEG [facility] Comment on above: Performed By: #### U AX, UMICAO #### [facility] [address] [place] [address] [employer] Operator: Haris Baker MD Clarity (U) Clear Normal CLEAR [facility] Comment on above: Performed By: #### U AX, UMICAO #### [facility] [address] [place] [address] [employer] Operator: Haris Baker MD Color (U) Yellow Normal YEL [facility] Comment on above: Performed By: #### U AX, UMICAO #### [facility] [address] [place] [address] [employer] Operator: Haris Baker MD Glucose Ql (U) Negative Normal NEG [facility] Comment on above: Performed By: #### U AX, UMICAO #### [facility] [address] [place] [address] [employer] Operator: Haris Baker MD Ketones Ql (U) Negative Normal NEG [facility] Comment on above: Performed By: #### U AX, UMICAO #### [facility] [address] [place], [place] [address]69283 [employer] Operator: Haris Baker MD Leukocyte esterase Test strip Ql (U) Negative Normal NEG [facility] Comment on above: Performed By: #### U AX, UMICAO #### [facility] [address] [place] [address] [place] [place], [place] 9257[address] [employer] Operator: Haris Baker MD Nitrite,Ur Negative Normal NEG [facility] Comment on above: Performed By: #### U AX, UMICAO #### [address] [place], [place] [address]376383 [employer] Operator: Haris Baker MD PH,Ur 6.0 Normal 5.0-9.0 [facility] Comment on above: Performed By: #### U AX, UMICAO #### [address] [place], [place] 9498383 [employer] Operator: Haris Baker MD Protein Ql (U) Negative Normal NEG [facility] Comment on above: Performed By: #### U AX, UMICAO #### [address] [place], [place] [address]300483 [employer] Operator: Haris Baker MD Spec. [place],Ur 1.010 Normal 1.010-1.020 [facility] Comment on above: Performed By: #### U AX, UMICAO #### [address] [place], [place] 454[address]83 [employer] Operator: Haris Baker MD Urobilinogen,Ur Normal Normal 0.0-1.0 [facility] Comment on above: Performed By: #### U AX, UMICAO #### [address] [place], [place] [address]283 [employer] Operator: Haris Baker MD Urinalysis,Microon 4 Epithelial cells LM Ql (Urine sed) None Normal 0-25 [facility] Comment on above: Performed By: #### U AX, UMICAO #### [address] [place] [address] [employer] Operator: Haris Baker MD Urine RBC's None Normal 0-2 [facility] Comment on above: Performed By: #### U GUERLINE GIRON #### [facility] [address] [place] [address] [employer] Operator: Haris Baker MD Urine WBC's None Normal 0-5 [facility] Comment on above: Performed By: #### U GUERLINE GIRON #### [facility] [address] [place] [address] [employer] Operator: Hairs Baker MD Coding Summary.on 04-23-2022 Coding Summary. CD:[id number] G h0bWw+PGhlYWQ+EY8PVSK iK44jdBPkaI8OH8mUDN0V KMCWTSCFSX3LGJ5ziCO6P BmkP7FgwxUn UhwnsABzVR38OFo0QCJ3t QdrXHqwbQ1rlWRoA5p4Zn WsVJ63mF11KDsoLYVzXhS 3LjZpbjsgbWFy V6lpIzHceNPaZnn+PHRhY mxlIHdpZHRoPScxMDAlJy TvaRzbXW0lUq4lZZDuAIN vbGxhcHNlOiBj s0mxFVPsRHktOJ2bfAluI 1KetPF0OJKya9g1Et88dM I+MOGeAWD1jWbzDLare72 8TwYtf9pvNSR6 jHVrPEddNUR5A03jh0C0E EFxLPByPBD1xBK0bY1doL ybshblR2RboGFoYjI1TED 2gDMzxG9vpEhe whihrU4cHmr+M30JQV7NB WAGGP8VWjy2Q3TuJaloqD I+VF64TTKhSK12gZEvlXL ho8rjcQd5ZwWv JQZoLXD3dHtzZDqmw1RuM NPgM37zaXGhv1O3FDMybB dnfSYkUlAouOF9lH4wZTp wtwroi2hafkxa Gqmgu0uyeq75vT71V12eM QvcCIRrOHK3QBNzLKXbuS nfex1opB8rRb7+PZnql9i ao4qphOn8UaWq RDTpzqNymAjlDJB4v3MqA w36L7NstGldz4PsMoz1cu 59iVZeq9R1yER4PMvrBSO jnD1fOLznQqQ3 MZZgViWgxD53zJCxDPbgH p1kcVaerAbeMV0jOSVxkf cxXRWecA6lWSZvsFEazXt yJY4gPEXqkhqz o700UlGmDCP2KCElhFMtZ 9NcwY2jCtMmJFRvUNEsX6 IneWNvDPasO403GYfvRaK 6NBGrzfKjG8Dz KGLiuCepMzA0v5R3Ym6Rl 8PvnnfsZEV9CThyPPG6Vc DjIsUtLmE2Z5NyTue3WWP jtGugMY0gW1Bg PVMlskyfvcdtiOS5OELkS QGlhS35mAWeTZhdXm5pt3 F3g912PPKqEPOfwC96Yn5 udDogMTBwdCBU mP2podrad0nkizdkOkMsB TXsWNf8OPt8VCKlcCiyWp JnWCO6ImD1TBO3hLRepS2 awMlfrgnvjV7n Oyc+Q47nqG5eYTY4SFC7d ougINIylhHhBT76SA67T8 RyPjwvdGFibGU+PGRpdiB rzXhnME4sMuJq f1xgv0OyPClgR2FdFAFeR SmjYrv5YKYtFGK5sHN2qY 7fZFPnXSdzq5M7yAL0X8P tojSyxd1cs6qa PPLuSWaxO67bhQRbb8M6L HQzgSQ2KKOtiJozSmQfcH 93Oyc+ZQZomZfhl9QvZwa rn9uhn5ihoLv0 PiSmSVXnofPpvWudIOY3u 4MaAg84E12gVTqfFQVsET UpKXMvGDEzqQhobo6gmE7 wIi8+PGNvbCB3 dZE7qJ0tXTJoZfL1DYizP 302EiFnyFGsGldym0hfl1 klfLk4CwKsMCBqcgUadHi cDYT8j9EoBm03 A72lTDkdIPHyMFUnZHUeV HZzrKipiy9axA9uGp6+PC 5yn7xyqb76eS23sOF+PHR gLMS0dIidQDay QRZbcH7nVXraPzV2SOSaG fYufX95gFGoOWveKb5nlX zddGmaYQ0jYKQqnthwm99 9YsIhc4lkYGBo wADiFOscCLX2F73ln1S8Z HLySLKvXNM5rRP3aM5ckC lnbjogbGVmdDsgdmVydGl wPKtfZGcgH125 IHRvcDsnPlBhdGllbnQgT bVyXJu3R5DmXnu8XJBwjN osLN1mvQSxWYedFa8dnYa ucHlgOO7gLEZk wemge245XcRgh3eiWPBul FXmRKgvSAG0G35fy0R0SU RfCCGyFXD3qNH1uK9bqBn nbjogbGVmdDsg poFcuMezKJocREwuE601Y HRvcDsnPkJpcnRoIERhdG A2RC76BF82cSZgj4K1wMX 9E1FxUWCrgvev txbdcUU9RLRcQQHqqE29E p5thLuhIn4pKPJsAPY2VW EesYDqZ2LwwS3mTdNpBLD hOODfK2KsaIQk NEiaL084LZgcGwV7NTFyh mUqL2YuTOVleBxoOeA4q0 J5Dc3PO7W0MR71JR10xWL eh9G4nTP8Y3Il GSZnqsticiiktBQ9VNBgU JMjaT37Xm2gxTufRr8cHJ AuZEU8GEFoaBBjK8CzuG6 yOiAjMDAwMDAw N2WxlSThVJmuK413OXmnA jH8ZPMwfaZjV3SsQKAphC nfJrX8a7F6Zs6RIZx8RF2 2KW69tEBln9G3 pUV2U5CfIQAwsxhyirshn XD0GUJrNDXndU24Dr7uqQ krGm6iOURlCLF2ZQGjuND qA7RxjO8mMnAt HWHrKOYyS2SxhCMjLJyuK 473VGtcAfI1RDNrpnNnQ0 XcDPIdwVkwLdU1l9M2Vd4 FJWUoRL06QNQ6 iRI5XN04QM95G6OlCtoxi GFibGU+PHRhYmxlIHdpZH RoPScxMDAlJyBzdHlsZT0 cHp7rMXQjDVLu iEwsxNIhZnVfb0haJFRdY KovHJ5rrWipD3CegVK9HW Puu0t4Aq66U38cF3IjnBB +PPPttJC6gCG3 jS6oGnYqTaV8YUvbK228H gZiuBQuLmxgp1zig1bugY v6LqU7DBFjpjKvaDsbSNC 9j3NsLw28N28e IHdpZHRoPSIxNSUiIHZhb Wfnyp4gjQ4uTn5+PGNvbC N4rFQ1xL0hDwYnKqS7RKo fZ341CiUluJAt Pftom3dnk0eemOz6YzMpA JOqjgGeoGmhGOL2u8KgOx 20O1XfmWmmk8PpLfj3ho9 8pXUgp4D6lYV4 B7JhPRIpkpjusDApjJrqI K0cWAKytwszZZAjfG9zSU UmM2o8KeFfYzB0JGdbF2N yqzJ5MWSjrGOy RZojWWF2E86xn2F8GNTcQ IKlBAQ4hJU2oR1fgSdwie ogbGVmdDsgdmVydGljYWw cJHluZ999XXIl zQtsDVNogX8nCXRhzXHau AixAE7wNKAykhvbMjeIPJ GlEI4UO54UKCMJIT48GZ1 2rNDpu5H5cKE2 Z1OmNWRlpjhvslfjaFZ9C ETfFCDcrW28iSQrVSilXt 8eh7F8d872QWFxCABdvM9 1Xi4rbOesQAUh bIDAcL7ifejif4sxkwrxV sCcRVBnLRo3ZLd1SIMkaL xgMnSlYTV8XgV0LCK9rVW mvM6ubXenogsa fJ8uZom+RQAxMLTkHQo9G TwvdGQ+MXOgKIE2eEjrBY jcOFQpeX2jANYqN1i7SjE gPsB1AAlmP0Rx JDFcjjcjZy79gD0qZoAmA hD8ISbrR3YfckK0ZTOsqS NvZBabTWB1J69by4F1MYQ iYDOfOKK8qCY6 xB0ntMkazhianFElcYmdj rNesPoiGNuuZZqlG676IY RvcDsnPjQzIFllYXJzPC9 1BN38wNWsd0U7 oMY7I8WgGUZoycsdqagsa AT3YSBjKOVotR66fLNsJJ idBz4bq2P7q764FHMgTEO ykF99Zy6eeJdj LUGptLQIcT3lxqetf2qru ufwXoObRCTwUAa3CKe2OH NwyWqwDgTjANQ8VpO2XZC 3yTJfrZ4taQje sfclmO8pCdc+RmVtYWxlP C24UN75eKPjm0Y6fZC4E5 LfYHSbrthqatlclIE1FBG iCOIzgD99nJCa QFknAk0me2V7g165SPGnE PJgmN60Fv0piAimSXEdiD HIaX5lguhps9hgfnzzBfB fPUQcEDy2SYz4 NVUyiLzaOgYyUAB6YmK8S SK4lLXpwY4uhNrmkeegkQ 9wOyc+WU4kxyrkpwM9XQ9 7IN87Z5AsDfly dGFibGU+PHRhYmxlIHdpZ HRoPScxMDAlJyBzdHlsZT 6rXs9nDUGrMEJdaZpuiJX aXfLeb9tdDUYi MDlgTI8goDvcX2UlrWP5U MFhp0i0Ms47Q68pS7LjkD A+FWVqjQQ2lOJ3bA6bDnM zDfY1GGpkF742 UnEbtHIvPmbix7snr2zbh Xw4OsNzVRTfvcXhyRrgXU V1p5EcGj27L89tYRsiGYB oPSIyMCUiIHZh aEfaun3ylR0cJv3+PGNvb BG2fPV3mX2rTeUhDoO5BU eqE045MjXmzWHbFrcgP18 vE2DtvDQ+PHRy Goa0WBBcvHjfNA1nkEHkN BjwIx8mAAJ3CmUuWtAdCF yhQ4AdSBVkeysmbeitqMK 3TNTdPCUfgE88 Ft8utIngVv0dACXoGQD1U QEodVXzQ3AnyC5aPlHlMZ VqOVIoL8MgzDPzZIbeO81 6NYbyZlX7LOFa vuTiN0CgXICsnUxnYjM8g 9J2Jg9JcCwypTInYM7bNi CmQMk9O4BkAyp8WXGpzAv gSX4vyCElWLfo Vi0ihVpvpFnfCH3tKTNut zkfs703KdQwd5gtRYBhrE DpRHzoNKN8D38jw0I1GMD aJVTpRQF7hIM1 bC5hyGtmqusvjLXfyLkqn bAtbDhiAFevKQhaS614HB XnxGjmPvUJKaq1F2PfNbz 6VEHmyKgzFN3l hIPcGDtxLo2ooNjctUvdW X9nZPYwdtqyv212DnXbj7 yzIMBbiOWjPPvoHES2C12 as1H9FDFdSGDi SQL0dDQ3uR8cvZwxtzyly GVmdDsgdmVydGljYWwtYW zkX502ZCUypVryGj2MVli 6O1EsEkt2RDKl kRqzQL3jqQAeBPivGe8gk ZrovPrnPX1oYKCzmdisz3 73NtGoc5dzTMWudFSnAVu wXRZ1A32cq0M7 AZIpZTDsRFR4iOC7aI9nu GlnbjogbGVmdDsgdmVydG wwNEltDTyzA192QZGwdJh nPlBheWVyOjwv dGQ+BM25ys00G5TsTwryH kc0FDWuKIZ1fVB0eA1mIW SrCDzcu1A2jLD0T9WyvsA fsn4aj5jyAHJo ZTog (more content not included)... Normal [facility] ED Note-Physicianon 04-23-20 ED Note-Physician [...] Patient seen and evaluated by the physician medical office assistant. Attending physician was present in the emergency department and supervised care. This visit was performed by both the physician and an APC. I performed all aspects of the MDM as documented. This report was transcribed using voice recognition software. Every effort was made to ensure accuracy, however, inadvertently computerized field sales executive mistakes may be present. Appropriate healthcare PPE [...] available. Diagnostic Results No qualifying data available. [facility] Comment on above: Result Comment: Elec tronically Signed By: Keenan Charles PA-C\.br\Date and Time Signed: 04/22/22 11:45 EDT\.br\Electronically Co-Signed By: Philippe Rice DO\.br\Date and Time Co-Signed: 04/23/22 07:13 EDT Consent for Treatmenton Consent for Treatment [id number] .00CD:127 [facility] Discharge Instructionson Discharge Instructions [id number] 1.00CD:127 [facility] ED Clinical Summaryon 2021 ED Clinical Summary [address] [address] ED Clinical Summary Person Information Name: NISA ARSHAD Amee/New_Buck Age: 42 Years : 1980 Sex: Female Language: Irish PCP: DARRON MCMILLAN DO Marital Status: Single [...] 04/22/2022 12:02:06 04/22/2022 12:02:06 04/22/2022 12:02:06 ADDRESS: [address] [place] [address] [address] [place] [id number] PHYS DOC NOTES: MEDICAL INFORMATION: Prescriptions Given: [...] days 04/25/2022 DIAGNOSIS: Cellulitis; Contact dermatitis Normal [facility] ED Patient Education Noteon 04-22-2022 [...] you may need to see an occupational ther. How is this treated? This condition is [...] and dyes. Medicines ? Take or apply qzik-hqd-icpomxi and prescription medicines only as told by [...] and water are not available, use hand tipple greaser. General instructions ? Avoid the substance that [...] away if: (more content not included)... Normal [facility] ED Patient Summaryon 022 ED Patient Summary [place] [id number] Patient Discharge Instructions Person Information Name: NISA ARSHAD Age: 42 Years Arrival Date: 04/22/2022 11:32:43 Discharge Diagnosis: Cellulitis; Contact dermatitis Primary Care Physician: DARRON MCMILLAN DO Provider Information Primary Provider: Philippe Rice DO Advanced Marina Manager:Keenan Charles PA-C The exam and treatment you received in the Emergency Department were for an urgent problem and are not intended as complete care. It is important that you follow up with a doctor, nurse practitioner, or physician?s medical office assistant for ongoing care. If your symptoms [...] opioids can be used to help relieve hqoagqjq-fe-bdqhnm pain and are often prescribed following a [...] be struggling with addiction, tell your health daycare worker and ask for guidance or call [employer] National Helpline at 3-212-628-AUIQ. c Source: [place] Department of Health and Human Services/[place] for (more content not included)... Normal [facility] Vital Signs Date Time Vital Sign Value Performing Clinician Nicole alonzo 04-22-2022 11:35-0400 Body temperature 97.88 [degF] Philippe Krystal [facility] 04-22-2022 11:35-0400 Diastolic blood pressure 89 mm[Hg] Philippe Rice [facility] 04-22-2022 11:35-0400 Heart rate 93 /min Philippe Rice [facility] 04-22-2022 11:35-0400 SaO2% (BldA) [Mass fraction] 100 % Philippe Rice [facility] 04-22-2022 11:35-0400 Systolic blood pressure 142 mm[Hg] Philippe Rice [facility] Encounters Encounter Date Encounter Type Care Provider Facility Start: 12-16-2023 End: 12-16-2023 Emergency department patient visit ESTUARDO ECHEVERRIA [facility] Start: 03-17-2023 End: 03-17-2023 Emergency department patient visit Magdi He Gutierrez Facility:[facility] Start: 04-22-2022 End: 04-22-2022 Emergency department patient visit Philippe Rice [facility] Payers Date Payer Category Payer Medicaid [id number] 2023 Self-pay 1980 Unknown [id number] Unknown [id number] Social History Date Type Detail Facility Tobacco smoking status No Smoking Status Entered [facility] Sex Assigned At Female [facility] Functional Status Date Assessment Result Facility 04-22-2022 Functional Status N/A [facility] Medication management note 11-12-2024 Note Date & Type Note Facility 11-12-2024 Note - From: Anjali Solis RN ([facility] ([facility] To: Darron Mcmillan DO; Sent: 11/12/2024 07:24:11 EST Subject: FW: Medication Management Due Date/Time: 11/12/2024 20:33:00 EST Caller Name: NISA ARSHAD; Caller Number: , From: [employer] To: Molly Ferrer CNP Sent: November 11, 2024 7:33:29 PM RISK MANAGEMENT CONSULTANT Subject: Medication Management Due: November 12, 2024 2:55:35 AM RISK MANAGEMENT CONSULTANT On Hold Pending Signature Dispensed Drug: gabapentin (gabapentin 300 mg oral capsule), TAKE 1 CAPSULE BY MOUTH TWICE A DAY Quantity: 60 cap(s) Days Supply: 30 Refills: 1 Substitutions Allowed Notes from Pharmacy: DX Code Needed . Submitted: Order:gabapentin (gabapentin 300 mg oral capsule) 1 cap(s) Oral BID Qty: 60 cap(s) Days Supply: 30 Refills: 1 Substitutions Allowed Route To Pharmacy - [facility]/pharmacy #[id number] oas 08/30/24 Signed by Darron Mcmillan DO 11/12/2024 07:37:00 [facility] Medication management note 08-30-2024 Note Date & Type Note Facility 08-30-2024 Note - From: Anjali Solis RN ([facility] ([facility])) To: Molly Ferrer CNP; Sent: 08/30/2024 07:32:13 EST Subject: FW: Medication Management Due Date/Time: 08/30/2024 19:47:00 EST Caller Name: JEANCARLOS NISA CLIFFORD; Caller Number: , M Patient matched by Anjali Solis RN on 08/30/2024 07:31:32 EST From: [employer] To: Darron Mcmillan DO Sent: August 27, 2024 6:47:15 PM RISK MANAGEMENT CONSULTANT Subject: Medication Management Due: August 28, 2024 12:10:08 AM RISK MANAGEMENT CONSULTANT On Hold Pending Signature Dispensed Drug: gabapentin (gabapentin 300 mg oral capsule), TAKE 1 CAPSULE BY MOUTH TWICE A DAY Quantity: 60 cap(s) Days Supply: 30 Refills: 1 Substitutions Allowed Notes from Pharmacy: From: Molly Ferrer APRN, CNP To: [facility]/pharmacy #[id number] Sent: 08/30/2024 12:05:15 EST Subject: FW: Medication Management Submitted: Order:gabapentin (gabapentin 300 mg oral capsule) 1 cap(s) Oral BID Qty: 60 cap(s) Days Supply: 30 Refills: 1 Substitutions Allowed Route To Pharmacy - [facility]/pharmacy #[id number] oarrs 08/30/24 Signed by Molly Ferrer [...] 1 Substitutions [facility]owed [id number] Signed by Molly Ferrer APRN, CNP [facility] Medication management note 07-06-2024 Note Date & Type Note Facility 07-06-2024 Note - From: Anjali Solis RN ([facility] ([facility] To: Darron Mcmillan DO; Sent: 07/05/2024 07:48:44 EDT Subject: FW: Medication Management Due Date/Time: 07/05/2024 15:24:00 EDT Caller Name: NISA ARSHAD; Caller Number: Feliberto , M Patient matched by Anjali Solis RN on 07/05/2024 07:48:06 EDT From: [id number] To: Darron Mcmillan DO Sent: July 04, 2024 2:24:05 PM CDT Subject: Medication Management Due: July 05, 2024 1:49:36 AM CDT On Hold Pending Signature Dispensed Drug: gabapentin (gabapentin 300 mg oral capsule), TAKE 1 CAPSULE BY MOUTH TWICE A DAY Quantity: 60 cap(s) Days Supply: 30 Refills: 0 Substitutions Allowed Notes from Pharmacy: From: Molly Ferrer APRN, CNP To: [facility]/pharmacy #[id number] Sent: 07/06/2024 12:29:33 EDT Subject: FW: Medication Management Not Approved: Refill not appropriate, just filled 07/04/24 gabapentin (GABAPENTIN 300 MG CAPSULE) TAKE 1 CAPSULE BY MOUTH TWICE A DAY Qty: 60 cap(s) Days Supply: 30 Refills: 0 Substitutions Allowed Route To Pharmacy - [facility]/pharmacy #[id number] Signed by Molly Ferrer APRN, [place] [facility] Medication management note 04-28-2024 Note Date & Type Note Facility 04-28-2024 Note - From: Anjali Solis RN ([facility] ([facility] To: Darron Mcmillan DO; Sent: 04/28/2024 07:40:08 EDT Subject: FW: Medication Management Due Date/Time: 04/29/2024 00:47:00 EDT Caller Name: NISA ARSHAD; Caller Number: Feliberto , M From: [id number] To: Darron Mcmillan DO Sent: April 27, [...] Allowed Route To Pharmacy - [facility][id number] [facility] reviewed 12/19/20 Signed by Darron Mcmillan DO 04/28/2024 07:43:00 EDT [facility] Medication management note 03-30-2024 Note Date & Type Note Facility 03-30-2024 Note - From: Anjali Solis RN ([facility] ([facility] To: Darron Mcmillan DO; Sent: 03/30/2024 12:59:30 EDT Subject: Med Management Caller Name: NISA ARSHAD; Caller Number: Feliberto , M Caller is: ( X ) Patient ( [...] Allowed Route To Pharmacy - [facility] #[id number] [facility] reviewed 12/19/20 Signed by Darron Mcmillan DO 03/30/2024 13:00:00 [facility] Discharge instructions 04-22-2022 Note Date & [...] you may need to see an occupational ther. How is this treated? This condition is [...] perfumes, and dyes. Medicines Take or apply urak-ibx-ckcrzmb and prescription medicines only as told by [...] and water are not available, use hand tipple greaser. General instructions Avoid the substance that caused [...] 09/05/2001 Document Revised: 12/29/2019 Document Reviewed: 03/24/2019 Indicative Software Patient Education 2020 [employer]. 04/22/2022 12:02:06 Cellulitis, Adult Cellulitis, Adult Cellulitis [...] Follow these instructions at home: Medicines Take lvzr-hhu-rixmdjd and prescription medicines only as told by [...] such as antibiotic medicines or antihistamines. Take owal-cee-xjvbojz and prescription medicines only as told by [...] 06/18/2006 Document Revised: 01/28/2019 Document Reviewed: 01/28/2019 Indicative Software Patient Education 2020 [employer]. Follow Up Care 04/22/2022 11:34:55 With:DARRON MCMILLAN Address:Unknown When:04/25/2022 11:40:33 [facility] Evaluation + Plan note Note Date & Type Note Facility Evaluation + Plan note No data available for this section [facility] Progress note Note Date & Type Note Facility Progress note No data available for this section [facility] Summary Purpose Family History No Family History Records FoundNo Family History Records FoundNo Family History Records FoundNo Family History Records Found Advance Directives No Advanced Directives Records FoundNo Advanced Directives Records FoundNo Advanced Directives Records FoundNo Advanced Directives Records Found Additional Source Comments Care Team (unrecognized sect ion and content) Personnel Name: DARRON MCMILLAN DO Address: [address] [id number] INFORMATION SOURCE (unrecogn ized section and content) DATE CREATED AUTHOR 04/24/2022 [facility] DATE CREATED AUTHOR AUTHOR'S ORGANIZ ATION 04/02/2023 [facility] DATE CREATED AUTHOR AUTHOR'S ORGANIZ ATION 12/17/2023 [facility] DATE CREATED AUTHOR AUTHOR'S ORGANIZ ATION 12/28/2024 [facility] FOR RECORDS PERTAINING TO PATIENTS WHO ARE [...] BE BASED ON THE PRIMARY CLINICAL RECORDS. [employer] provides no warranty or guarantee of the accuracy or completeness of information in this document.
--- NOTE | 2025-01-03 12:44 | ED_ITS ---
HPI HPI - General Adult General Chief complaint: Allergic Reaction Stated complaint: RASH Time Seen by Provider: 01/03/25 12:22 Source: patient Mode of arrival: Wheelchair Limitations: no limitations History of Present Illness HPI narrative: Patient presents to the emergency department complaining of generalized itching since last night followed by the appearance of hives. She is not experiencing shortness of breath. She has a history of fibromyalgia and anxiety for which she is on gabapentin and Klonopin. She cannot recall exposure to any unusual food or chemical product yesterday. She states she has been under a lot of stress since her mother 2 weeks ago. Related Data Home Medications ?Medication ?Instructions ?Recorded ?Confirmed clonazepam 0.5 mg tablet 0.5 mg PO DAILY PRN anxiety 02/02/24 12/26/24 gabapentin 300 mg capsule 300 mg PO Q12H 02/02/24 12/26/24 Previous Rx's ?Medication ?Instructions ?Recorded clindamycin HCl 300 mg capsule 300 mg PO Q8H 7 days #21 caps 02/02/24 clindamycin HCl 150 mg capsule 300 mg (2 x 150 mg) PO Q6H 10 days 11/16/24 #80 caps ketorolac 10 mg tablet 10 mg PO TID PRN pain #10 tabs 11/16/24 famotidine 20 mg tablet (Pepcid) 20 mg PO BID 10 days #20 tabs 01/03/25 hydroxyzine HCl 25 mg tablet 25 mg PO Q6H PRN itching #30 tabs 01/03/25 prednisone 20 mg tablet 40 mg (2 x 20 mg) PO DAILY 5 days 01/03/25 #10 tabs Allergies Allergy/AdvReac Type Severity Reaction Status Date / Time No Known Drug Allergies Allergy Verified 01/03/25 12:22 Opioid HPI Opioid Management Most Recent Opioid Data: Last Pain Scale 8 12/26/24 23:31 12/26/24 Review of Systems ROS Status of ROS 10 or more systems reviewed and unremark able except as noted in history and below PFSH PFS Social History Little interest or pleasure in doing things: not at all Feeling down, depressed, or hopeless: not at all Exam Narrative Exam Narrative: Anxious in appearance. Vitals are stable and are as documented. HEENT exam is normal to inspection. There is no pharyngeal erythema. Airway is clear. Neck is supple. Lung sounds are clear to auscultation with no rales or rhonchi. Heart has regular rate and rhythm. Abdomen is soft and benign. She moves all extremities actively. Patient has scattered urticarial lesions on her upper extremities and back. These yasmani well with pressure. There are no bullae. Constitutional Vital Signs, click to edit/add: Last Vital Signs Temp 98.1 F 01/03/25 12:22 Pulse 105 H 01/03/25 12:22 Resp 16 01/03/25 12:22 BP 132/90 01/03/25 12:22 Pulse Ox 100 01/03/25 12:22 O2 Del Method Room Air 01/03/25 12:22 Course Vital Signs Vital signs: Vital Signs Temperature 98.1 F 01/03/25 12:22 Pulse Rate 105 H 01/03/25 12:22 Respiratory Rate 16 01/03/25 12:22 Blood Pressure 132/90 01/03/25 12:22 Pulse Oximetry 100 01/03/25 12:22 Oxygen Delivery Method Room Air 01/03/25 12:22 Temperature 98.1 F 01/03/25 12:22 Pulse Rate 105 H 01/03/25 12:22 Respiratory Rate 16 01/03/25 12:22 Blood Pressure 132/90 01/03/25 12:22 Pulse Oximetry 100 01/03/25 12:22 Oxygen Delivery Method Room Air 01/03/25 12:22 Medical Decision Making MDM Narrative Medical decision making narrative: Patient presents with urticaria. She feels some of this may be stress-induced. In the ED she is treated with Decadron 10 mg IM Pepcid 40 mg p.o. and hydroxyzine 25 mg p.o. Some of the urticarial lesions on the back are starting to improve. Upon discharge she is stable and not in respiratory distress. She is placed on Pepcid, hydroxyzine and prednisone upon discharge and is referred to outpatient primary care follow-up. She is to return for worsening symptoms. Discharge Plan Discharge Chief Complaint: Allergic Reaction Clinical Impression: Urticaria Patient Disposition: Home, Self-Care Time of Disposition Decision: 14:13 Condition: Fair Mode of Transportation: Private Vehicle Prescriptions / Home Meds: New famotidine [Pepcid] 20 mg tablet 20 mg PO BID 10 Days Qty: 20 0RF hydroxyzine HCl 25 mg tablet 25 mg PO Q6H PRN (Reason: itching) Qty: 30 0RF prednisone 20 mg tablet 40 mg PO DAILY 5 Days Qty: 10 0RF No Action clindamycin HCl 150 mg capsule 300 mg PO Q6H 10 Days Qty: 80 0RF ketorolac 10 mg tablet 10 mg PO TID PRN (Reason: pain) Qty: 10 0RF clonazepam 0.5 mg tablet 0.5 mg PO DAILY PRN (Reason: anxiety) gabapentin 300 mg capsule 300 mg PO Q12H clindamycin HCl 300 mg capsule 300 mg PO Q8H 7 Days Qty: 21 0RF Print Language: Bulgarian Instructions: Urticaria (ED) Additional Instructions: Follow-up with your physician in 3 to 5 days. Return for worsening symptoms. Referrals: BOB HUMPHRIES [Primary Care Provider] - 1 week Discharge Date/Time: 01/03/25 14:26
[2025-01-03] MEDS: HYDROXYZINE PAMOATE 25 MG CAPSULE PO (13:17)
[2025-01-03] MEDS: DEXAMETHASONE SOD PHOS 10 MG/ML VIAL IM (13:18)
[2025-01-03] MEDS: FAMOTIDINE 20 MG TABLET 40 MG PO (13:18)
== END 2025-01-03 14:26 | disposition home or self-care (01) ==
PROVIDERS: Emergency Provider Emergency Medicine; PCP Family Medicine
DX: L50.9 Urticaria, unspecified (principal); M79.7 Fibromyalgia; F41.9 Anxiety disorder, unspecified; Z63.4 Disappearance and death of family member; Z79.899 Other long term (current) drug therapy
CPT/HCPCS: 96372; 99284; J1100; Q0177

== ENCOUNTER 2025-07-27 16:52 | Emergency (ER) | payer OTHER, SELFPAY ==
[2025-07-27] VITALS (33 sets, daily range): BP systolic 107–135; BP diastolic 71–90; PULSE 77–90; TEMP 36.9; O2SAT 97–100; BMI 31.1
--- NOTE | 2025-07-27 17:05 | XR_ITS ---
[facility] [place] [id number] Patient Name: NISA ARSHAD MRN: [id number] date: 1980 Sex: F Assigned Patient Location: ED.MAIN Current Patient Location: ED.MAIN Accession/Order Number: [id number] Exam Date: 07/27/2025 17:18 Report Date: 07/27/2025 18:21 At the request of: TAY CAMARA Procedure: XR chest 1V Plain film chest Single view HISTORY: Altered mental status COMPARISON: 10/18/2023 FINDINGS: SUPPORT DEVICES: None POSTSURGICAL CHANGES: None HEART: Within normal limits PULMONARY ENOCH: Within normal limits MEDIASTINUM: Unremarkable LUNGS AND PLEURA: No acute lung process, pleural effusion or pneumothorax identified. BONY STRUCTURES: Intact ADDITIONAL FINDINGS None XR/XR chest 1V IMPRESSION: No acute process. Impression dictated by: Jonny Fish M.D. 07/27/2025 6:21 PM Dictation [facility] Electronically authenticated by: [id number] Y Date: 07/27/2025 18:21
--- NOTE | 2025-07-27 17:05 | ECG_ITS ---
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 Measurements Intervals Otho Rate: 81 P: 76 GA: 170 QRS: 70 QRSD: 102 T: 63 QT: 366 QTc: 403 Interpretive Statements 1100 Sinus rhythm 9110 normal ECG No previous ECG available for comparison Electronically Signed On 07-28-2025 7:19:10 EST by SHAYY RAGSDALE M.D.
--- NOTE | 2025-07-27 17:07 | ED.GENADUL1 ---
Documented by User: Mary Tapia 07/27/25 21:54 HPI HPI - General Adult General Chief complaint: Dizziness Stated complaint: OTHER Time Seen by Provider: 07/27/25 16:55 Source: patient Source information: squad Mode of arrival: ambulance Limitations: no limitations History of Present Illness HPI narrative: 45 year old female presents to the ED via EMS for chills, fatigue, sweats, body aches. States she has been out of her gabapentin for 3 days. Denies fever, dizziness, vision changes, CP, SOB. Reports a PIERRE. Denies abd pain, N/V/D, urinary symptoms. Related Data Home Medications ?Medication ?Instructions ?Recorded ?Confirmed clonazepam 0.5 mg tablet 0.5 mg PO Q12H PRN anxiety 02/02/24 07/27/25 gabapentin 300 mg capsule 300 mg PO Q12H 02/02/24 07/27/25 Previous Rx's ?Medication ?Instructions ?Recorded gabapentin 300 mg capsule 300 mg PO BID 3 days #6 caps 07/27/25 Allergies Allergy/AdvReac Type Severity Reaction Status Date / Time No Known Drug Allergies Allergy Verified 01/03/25 12:22 Opioid HPI Opioid Management Most Recent Opioid Data: Last Pain Scale 10 Today, 21:03 Last MAR Pain Assessment Today, 21:03 Ur Phencyclidine Scrn, (NEGATIVE) Negative Today, 20:50 Review of Systems ROS Constitutional Reports: chills and fatigue; Denies: fever Eyes Denies: change in vision Ears, nose, mouth, and throat Denies: throat pain Cardiovascular Denies: chest pain Respiratory Denies: shortness of breath or cough Gastrointestinal Denies: abdominal pain, nausea, vomiting or diarrhea Genitourinary Denies: painful urination Musculoskeletal Reports: other (Generalized body aches, pain.) Neurological Reports: headache; Denies: numbness in extremities, weakness in extremities, dizziness or slurred speech PFSH PFSH Social History Little interest or pleasure in doing things: not at all Feeling down, depressed, or hopeless: not at all Exam Constitutional Vital Signs, click to edit/add: Last Vital Signs Temp 98.4 F 07/27/25 17:00 Pulse 86 07/27/25 21:20 Resp 13 07/27/25 21:20 BP 135/90 07/27/25 21:01 Pulse Ox 99 07/27/25 21:20 O2 Del Method Room Air 07/27/25 17:00 Common normals: no apparent distress and oriented x3 General appearance: cooperative HENMT Common normals: moist oral mucous membranes and oropharynx normal Head and scalp: no Vincent's sign and no raccoon eyes Other: Area of missing hair to right frontal scalp. Scabs noted to area. Pt appears to be picking at area. No drainage or evidence of infection. Eye Common normals: PERRL, EOMs intact bilaterally, conjunctivae normal and no scleral icterus Neck & C-Spine Common normals: supple General: no tenderness Chest Chest: symmetrical chest wall rise Respiratory Common normals: normal respiratory effort and clear to auscultation bilaterally Effort & inspection: able to speak in complete sentences and symmetric chest movement Cardio Common normals: regular rate and regular rhythm GI Common normals: soft to palpation and non-tender Extremity Other: Moves extremities. Neuro Common normals: oriented x3, CN's II-XII intact bilaterally, moves all extremities and no focal motor deficits Sensorium/orientation: awake and alert Speech: speech normal Gait (neuro): normal gait Course Vital Signs Vital signs: Vital Signs Blood Pressure 127/86 07/27/25 16:58 Temperature 98.4 F 07/27/25 17:00 Pulse Rate 86 07/27/25 21:20 Respiratory Rate 13 07/27/25 21:20 Blood Pressure 135/90 07/27/25 21:01 Pulse Oximetry 99 07/27/25 21:20 Oxygen Delivery Method Room Air 07/27/25 17:00 Medical Decision Making MDM Narrative Medical decision making narrative: CBC, CMP and urinalysis were unremarkable. The patient tested positive for methamphetamines. Imaging was negative for acute findings. Findings were discussed with the patient and her family member. OARRS was reviewed. A prescription was provided for a 3-day supply of her gabapentin. She is going home with her family member; it is a different individual than she was with at the hotel. Follow up with pcp for a recheck, further evaluation and treatment. Return to the ED for worsening symptoms. While being discharged the patient stated she would be willing to go to rehab. She reported methamphetamine use for approx 1 year. The RN contacted [facility]; awaiting acceptance. The patient is medically cleared. Medical Records Medical records reviewed: Yes I reviewed the patient's medical records Lab Data Lab results reviewed: Yes I reviewed the patient's lab results Labs: Lab Results 07/27/25 07/27/25 Range/Units 17:33 20:50 WBC 9.5 (4.0-11.0) 10^3/uL RBC 4.36 (4.20-5.40) 10^6/uL Hgb 13.3 (12.0-16.0) g/dL Hct 39.2 (36.0-48.0) % MCV 89.9 (81.0-99.0) fL MCH 30.5 (26.7-34.0) pg MCHC 33.9 (29.9-35.2) g/dL RDW 11.8 (11.0-15.0) % Plt Count 256 (150-450) 10^3/uL MPV 10.9 (9.5-13.5) fL Neut % (Auto) 63.9 (43.0-75.0) % Lymph % (Auto) 24.1 (20.5-60.0) % Roberts % (Auto) 7.3 (1.7-12.0) % Eos % (Auto) 3.7 (0.9-7.0) % Baso % (Auto) 0.6 (0.2-2.0) % Neut # (Auto) 6.1 (1.4-6.5) 10^3/uL Lymph # (Auto) 2.3 (1.2-3.8) 10^3/uL Roberts # (Auto) 0.7 (0.3-0.8) 10^3/uL Eos # (Auto) 0.4 (0.0-0.7) 10^3/uL Baso # (Auto) 0.1 (0.0-0.1) 10^3/uL Abs Immat Gran (auto) 0.04 H (0.00-0.03) 10^3/uL Imm/Tot Granulo (auto) 0.4 (0.0-0.5) % Sodium 139 (136-145) mmol/L Potassium 3.8 (3.5-5.1) mmol/L Chloride 104 (98-107) mmol/L Carbon Dioxide 25.9 (21.0-32.0) mmol/L Anion Gap 12.9 BUN 9.0 (7.0-18.0) mg/dL Creatinine 0.59 (0.55-1.02) mg/dL Est GFR ( Amer) >60 (>=60 mL/min/1.73m^2) Est GFR (Non-Af Amer) >60 (>=60 mL/min/1.73m^2) BUN/Creatinine Ratio 15.3 Glucose 100 (74-106) mg/dL Calcium 8.5 (8.5-10.1) mg/dL Total Bilirubin 0.4 (0.2-1.0) mg/dL AST 20 (15-37) U/L ALT 21 (14-59) U/L Alkaline Phosphatase 78 (46-116) U/L Troponin I High Sens <4.0 L (4.0-51.3) pg/mL Total Protein 6.6 (6.4-8.2) g/dL Albumin 3.0 L (3.4-5.0) g/dL Globulin 3.6 g/dL Albumin/Globulin Ratio 0.8 Urine Color Lt. yellow (YELLOW) Urine Clarity Clear (CLEAR) Urine pH 6.0 (5.0-9.0) Ur Specific [place] 1.010 (1.005-1.025) Urine Protein Negative (NEG/TRACE) mg/dL Urine Glucose (UA) Negative (NEGATIVE) mg/dL Urine Ketones Negative (NEGATIVE) mg/dL Urine Occult Blood Negative (NEGATIVE) Urine Nitrite Negative (NEGATIVE) Urine Bilirubin Negative (NEGATIVE) Urine Urobilinogen 0.2 (0.2-1.0) EU/dL Ur Leukocyte Esterase Negative (NEGATIVE) Urine HCG, Qual Negative (NEGATIVE) Urine Opiates Screen Negative (NEGATIVE) Ur Buprenorphine Scrn Negative (NEGATIVE) Ur Oxycodone Screen Negative (NEGATIVE) Urine Methadone Screen Negative (NEGATIVE) Ur Barbiturates Screen Negative (NEGATIVE) U Tricyclic Antidepress Negative (NEGATIVE) Ur Phencyclidine Scrn Negative (NEGATIVE) Ur Amphetamines Screen Positive A (NEGATIVE) U Methamphetamines Scrn Positive A (NEGATIVE) U Benzodiazepines Scrn Negative (NEGATIVE) Urine Cocaine Screen Negative (NEGATIVE) U Cannabinoids Screen Negative (NEGATIVE) Ethanol Quant <3 mg/dL Imaging Data CT scan - head: Attestation: I have reviewed the pertinent imaging results. Radiologist's impression: ITS Impressions Chest X-Ray 07/27/25 17:05 IMPRESSION: No acute process. Impression dictated by: Jonny Fish M.D. 07/27/2025 6:21 PM Dictation Location: [employer] Electronically authenticated by: [id number] Y Date: 07/27/2025 18:[address] 07/27/25 17:08 IMPRESSION: No acute intracranial findings. Frontal scalp hematoma Impression dictated by: Jonny Fish M.D. 07/27/2025 6:19 PM Dictation Location: [facility] Electronically authenticated by: [id number] Y Date: 07/27/2025 18:19 ECG Data Attestation: ?I have reviewed the pertinent ECG results. (EKG was reviewed by the attending physician. It showed sinus rhythm at a rate of 81. No STEMI.) Interpretation: Measurements Intervals [place]man Rate: 81 P: 76 CO: 170 QRS: 70 QRSD: 102 T: 63 QT: 366 QTc: 403 Interpretive Statements 1100 Sinus rhythm 9110 normal ECG No previous ECG available for comparison Discharge Plan Discharge Chief Complaint: Dizziness Clinical Impression: Encounter for medication refill, Withdrawal syndrome, Methamphetamine use Patient Disposition: Home, Self-Care Time of Disposition Decision: 21:25 Condition: Good Mode of Transportation: Private Vehicle Prescriptions / Home Meds: New gabapentin 300 mg capsule 300 mg PO BID 3 Days Qty: 6 0RF No Action clonazepam 0.5 mg tablet 0.5 mg PO Q12H PRN (Reason: anxiety) gabapentin 300 mg capsule 300 mg PO Q12H Print Language: French Instructions: Methamphetamine Use Disorder (ED) Additional Instructions: Return to the ED for worsening symptoms. The patient is medically cleared. Referrals: BOB HUMPHRIES [Primary Care Provider, Family Practice] - 1 week Discharge Date/Time: 07/27/25 22:12 Documented by User: Mimi Carter MD 07/27/25 22:27 HPI HPI - General Adult General Chief complaint: Dizziness Stated complaint: OTHER Time Seen by Provider: 07/27/25 16:55 Related Data Home Medications ?Medication ?Instructions ?Recorded ?Confirmed clonazepam 0.5 mg tablet 0.5 mg PO Q12H PRN anxiety 02/02/24 07/27/25 gabapentin 300 mg capsule 300 mg PO Q12H 02/02/24 07/27/25 Previous Rx's ?Medication ?Instructions ?Recorded gabapentin 300 mg capsule 300 mg PO BID 3 days #6 caps 07/27/25 Allergies Allergy/AdvReac Type Severity Reaction Status Date / Time No Known Drug Allergies Allergy Verified 01/03/25 12:22 Opioid HPI Opioid Management Most Recent Opioid Data: Last Pain Scale 10 Today, 21:03 Last MAR Pain Assessment Today, 21:03 Ur Phencyclidine Scrn, (NEGATIVE) Negative Today, 20:50 PFSH PFSH Social History Little interest or pleasure in doing things: not at all Feeling down, depressed, or hopeless: not at all Exam Constitutional Vital Signs, click to edit/add: Last Vital Signs Temp 98.4 F 07/27/25 17:00 Pulse 86 07/27/25 21:20 Resp 13 07/27/25 21:20 BP 135/90 07/27/25 21:01 Pulse Ox 99 07/27/25 21:20 O2 Del Method Room Air 07/27/25 17:00 Course Vital Signs Vital signs: Vital Signs Blood Pressure 127/86 07/27/25 16:58 Temperature 98.4 F 07/27/25 17:00 Pulse Rate 86 07/27/25 21:20 Respiratory Rate 13 07/27/25 21:20 Blood Pressure 135/90 07/27/25 21:01 Pulse Oximetry 99 07/27/25 21:20 Oxygen Delivery Method Room Air 07/27/25 17:00 Medical Decision Making MDM Narrative Medical decision making narrative: CBC, CMP and urinalysis were unremarkable. The patient tested positive for methamphetamines. Imaging was negative for acute findings. Findings were discussed with the patient and her family member. OARRS was reviewed. A prescription was provided for a 3-day supply of her gabapentin. She is going home with her family member; it is a different individual than she was with at the hotel. Follow up with pcp for a recheck, further evaluation and treatment. Return to the ED for worsening symptoms. While being discharged the patient stated she would be willing to go to rehab. She reported methamphetamine use for approx 1 year. The RN contacted [facility]; awaiting acceptance. The patient is medically cleared. This patient was evaluated in conjunction with the physician autopsy assistant. Please refer to her H&P. She remains hemodynamically stable in the emergency department. Initially she had agreed to go to rehab and we started the process to get her accepted to [facility]. Prior to that the patient gathered her belongings and expressed that she was leaving the emergency department. She states that she will go to rehab on her own with her boyfriend. The process to get her excepted was discontinued. Lab Data Labs: Lab Results 07/27/25 07/27/25 Range/Units 17:33 20:50 WBC 9.5 (4.0-11.0) 10^3/uL RBC 4.36 (4.20-5.40) 10^6/uL Hgb 13.3 (12.0-16.0) g/dL Hct 39.2 (36.0-48.0) % MCV 89.9 (81.0-99.0) fL MCH 30.5 (26.7-34.0) pg MCHC 33.9 (29.9-35.2) g/dL RDW 11.8 (11.0-15.0) % Plt Count 256 (150-450) 10^3/uL MPV 10.9 (9.5-13.5) fL Neut % (Auto) 63.9 (43.0-75.0) % Lymph % (Auto) 24.1 (20.5-60.0) % Roberts % (Auto) 7.3 (1.7-12.0) % Eos % (Auto) 3.7 (0.9-7.0) % Baso % (Auto) 0.6 (0.2-2.0) % Neut # (Auto) 6.1 (1.4-6.5) 10^3/uL Lymph # (Auto) 2.3 (1.2-3.8) 10^3/uL Roberts # (Auto) 0.7 (0.3-0.8) 10^3/uL Eos # (Auto) 0.4 (0.0-0.7) 10^3/uL Baso # (Auto) 0.1 (0.0-0.1) 10^3/uL Abs Immat Gran (auto) 0.04 H (0.00-0.03) 10^3/uL Imm/Tot Granulo (auto) 0.4 (0.0-0.5) % Sodium 139 (136-145) mmol/L Potassium 3.8 (3.5-5.1) mmol/L Chloride 104 (98-107) mmol/L Carbon Dioxide 25.9 (21.0-32.0) mmol/L Anion Gap 12.9 BUN 9.0 (7.0-18.0) mg/dL Creatinine 0.59 (0.55-1.02) mg/dL Est GFR ( Amer) >60 (>=60 mL/min/1.73m^2) Est GFR (Non-Af Amer) >60 (>=60 mL/min/1.73m^2) BUN/Creatinine Ratio 15.3 Glucose 100 (74-106) mg/dL Calcium 8.5 (8.5-10.1) mg/dL Total Bilirubin 0.4 (0.2-1.0) mg/dL AST 20 (15-37) U/L ALT 21 (14-59) U/L Alkaline Phosphatase 78 (46-116) U/L Troponin I High Sens <4.0 L (4.0-51.3) pg/mL Total Protein 6.6 (6.4-8.2) g/dL Albumin 3.0 L (3.4-5.0) g/dL Globulin 3.6 g/dL Albumin/Globulin Ratio 0.8 Urine Color Lt. yellow (YELLOW) Urine Clarity Clear (CLEAR) Urine pH 6.0 (5.0-9.0) Ur Specific [place] 1.010 (1.005-1.025) Urine Protein Negative (NEG/TRACE) mg/dL Urine Glucose (UA) Negative (NEGATIVE) mg/dL Urine Ketones Negative (NEGATIVE) mg/dL Urine Occult Blood Negative (NEGATIVE) Urine Nitrite Negative (NEGATIVE) Urine Bilirubin Negative (NEGATIVE) Urine Urobilinogen 0.2 (0.2-1.0) EU/dL Ur Leukocyte Esterase Negative (NEGATIVE) Urine HCG, Qual Negative (NEGATIVE) Urine Opiates Screen Negative (NEGATIVE) Ur Buprenorphine Scrn Negative (NEGATIVE) Ur Oxycodone Screen Negative (NEGATIVE) Urine Methadone Screen Negative (NEGATIVE) Ur Barbiturates Screen Negative (NEGATIVE) U Tricyclic Antidepress Negative (NEGATIVE) Ur Phencyclidine Scrn Negative (NEGATIVE) Ur Amphetamines Screen Positive A (NEGATIVE) U Methamphetamines Scrn Positive A (NEGATIVE) U Benzodiazepines Scrn Negative (NEGATIVE) Urine Cocaine Screen Negative (NEGATIVE) U Cannabinoids Screen Negative (NEGATIVE) Ethanol Quant <3 mg/dL Imaging Data CT scan - head: Radiologist's impression: ITS Impressions Chest X-Ray 07/27/25 17:05 IMPRESSION: No acute process. Impression dictated by: Jonny Fish M.D. 07/27/2025 6:21 PM Dictation Location: [employer] Electronically authenticated by: [id number] Y Date: 07/27/2025 18:[address] 07/27/25 17:08 IMPRESSION: No acute intracranial findings. Frontal scalp hematoma Impression dictated by: Jonny Fish M.D. 07/27/2025 6:19 PM Dictation Location: [employer] Electronically authenticated by: [id number] Y Date: 07/27/2025 18:19 Discharge Plan Discharge Chief Complaint: Dizziness Clinical Impression: Encounter for medication refill, Withdrawal syndrome, Methamphetamine use Patient Disposition: Home, Self-Care Time of Disposition Decision: 21:25 Condition: Good Mode of Transportation: Private Vehicle Prescriptions / Home Meds: New gabapentin 300 mg capsule 300 mg PO BID 3 Days Qty: 6 0RF No Action clonazepam 0.5 mg tablet 0.5 mg PO Q12H PRN (Reason: anxiety) gabapentin 300 mg capsule 300 mg PO Q12H Print Language: French Instructions: Methamphetamine Use Disorder (ED) Additional Instructions: Return to the ED for worsening symptoms. The patient is medically cleared. Referrals: BOB HUMPHRIES [Primary Care Provider, Family Practice] - 1 week Discharge Date/Time: 07/27/25 22:12
--- NOTE | 2025-07-27 17:08 | CT_ITS ---
The [address] [address] Patient Name: NISA ARSHAD MRN: [id number] date: 1980 Sex: F Assigned Patient Location: ED.MAIN Current Patient Location: ED.MAIN Accession/Order Number: [id number] Exam Date: 07/27/2025 17:18 Report Date: 07/27/2025 18:19 At the request of: TAY CAMARA Procedure: CT head/brain wo con Unenhanced head CT TECHNIQUE: Contiguous axial imaging of the head. The CT exam was performed using one or more the following dose reduction techniques: Automated exposure control, adjustment of the MA and/or Kv according to patient size, or use of the iterative reconstruction technique. COMPARISON: None HISTORY: Headache. Altered mental status. Fell. VENTRICLES: Within normal limits ATROPHY: None BRAIN PARENCHYMA: Adequate grover-white matter differentiation identified. HEMORRHAGE: None HERNIATION: No mass effect or herniation INFARCTION: No recent vascular distribution infarction is seen. EXTRA-AXIAL FLUID COLLECTIONS None MIDBRAIN: Unremarkable ARTEM: Unremarkable MEDULLA: Unremarkable SINUSES: Unremarkable ORBITS: Grossly unremarkable MASTOIDS: Unremarkable BONY STRUCTURES Intact ADDITIONAL FINDINGS: Frontal scalp hematoma CT/CT head/brain wo con IMPRESSION: No acute intracranial findings. Frontal scalp hematoma Impression dictated by: Jonny Fish M.D. 07/27/2025 6:19 PM Dictation Location[facility] Electron[facility] by: [id number] Y Date: 07/27/2025 18:19
[2025-07-27 17:48] LABS: Hematocrit 39.2 % (36.0-48.0); Hemoglobin 13.3 g/dL (12.0-16.0); Immature Granulocytes Abs Auto 0.04 10^3/uL (0.00-0.03); Immature Granulocytes Pct Auto 0.4 % (0.0-0.5); Lymphocytes Absolute Auto 2.3 10^3/uL (1.2-3.8); Mean Corpuscular HGB Conc 33.9 g/dL (29.9-35.2); Mean Corpuscular Hemoglobin 30.5 pg (26.7-34.0); Mean Corpuscular Volume 89.9 fL (81.0-99.0); Platelet Count 256 10^3/uL (150-450); Red Blood Count 4.36 10^6/uL (4.20-5.40); White Blood Count 9.5 10^3/uL (4.0-11.0)
--- OUTSIDE RECORDS SUMMARY | 2025-07-27 17:55 | XMS_ITS | CCD ---
Author Organization [facility] Care Team Providers Care Engineering Faculty Name Role Phone DARRON MCMILLAN Primary Care Physician [phone] Magdi Gutierrez Admitting Unavailable Magdi Gutierrez Attending Unavailable Darron Mcmillan Primary Care Unavailable Unavailable Primary Care Provider UnavailLEO Villalpando Attending Unavailable Darron Mcmillan Primary Care Unavailable Darron Mcmillan Attending Unavailable Allergies Allergy ClassificationReported Allergen(s)Allergy TypeDate of OnsetReaction(s) Facility (1 source)No Known Medication Allergies; Translations: [No Known Medication Allergies]Propensity to adverse reactions to drug (disorder)[facility] Repository Medications Current Medications MedicationDrug Class(es)DatesSig (Normalized)Sig (Original)acetaminophen 325 mg oral tablet (1 source)Start: 05-33-4054evvc 2 tablets by mouth every six hours as needed for painacetaminophen (TYLENOL) 325 MG tablet Take 2 tablets by mouth every 6 hours as needed for Pain 30 tablet 04/30/2018 Activeamoxicillin 875 mg / clavulanate 125 mg oral tablet (2 sources)Penicillin-class AntibacterialStart: 06-03-2025 End: 23-39-4829uvoa 1 tablet by mouth twice dailyamoxicillin-clavulanate (AUGMENTIN) 875-125 MG per tablet Take 1 tablet by mouth 2 times daily for 10 days 20 tablet 06/03/2025 06/13/2025 ActiveStart: 06-03-2025 End: tablet, Oral, ONCE, 1 dose, On Fri06/03/25 at 0945, Antimicrobial Indications: Skin and Soft Tissue Infectiondicyclomine hydrochloride 10 mg oral capsule (1 source)AnticholinergicStart: 77-17-7508cazy 1 capsule by mouth four times daily before mealtimedicyclomine (BENTYL) 10 MG capsule Take 1 capsule by mouth 4 times daily (before meals and nightly)120 capsule 12/16/2023 Active diphenhydrAMINE hydrochloride 25 mg oral capsule (1 source)Histamine-1 Receptor AntagonistStart: 14-08-2018oesa 1 capsule by mouth three times daily as neededBenadryl 25 mg Cap 1 -2 caps, Oral, TID, PRN for itching, # 30 cap(s), Refills(s) 0 Start Date: 04/22/22 Status: Ordered ondansetron 4 mg oral tablet (2 sources)Serotonin-3 Receptor AntagonistStart: 42-71-2376mkmr 1 tablet by mouth every eight hours as needed for nauseaondansetron (ZOFRAN) 4 MG tablet Take 1 tablet by mouth every 8 hours as needed for Nausea 10 tablet 06/03/2025 ActiveStart: 12-16-2023 End: 81-09-3758sswf 1 tablet by mouth every eight hours as needed for nausea ondansetron (ZOFRAN) 4 MG tablet Take 1 tablet by mouth every 8 hours as needed for Nausea 20 tablet 12/16/2023 06/03/2025 Discontinued (LIST CLEANUP) Completed/Discontinued Medications MedicationDrug Class(es)DatesSig (Normalized)Sig (Original)benzocaine 200 mg/ml topical spray (1 source)Standardized Chemical AllergenStart: 06-03-2025 End: 81-97-2073Hzojl/Throat, Once, On Fri06/03/25 at 1015, For 1 dose, Firmly insert provided extension tube into spray can valve. Hold extension tube 1-2 inches from affected area and spray for second (press and immediately release actuator).cephalexin 500 mg oral capsule (1 source)Cephalosporin AntibacterialStart: 77-65-3538lcfk 1 capsule by mouth three times dailyKeflex 500 mg Cap 500 mg = 1 cap(s), Oral, TID, Take one capsule by mouth three times a day for tendays, # 30 cap(s), Refills(s) 0 Start Date: 04/22/22 Status: Ordered1 ml ketorolac tromethamine 30 mg/ml cartridge (1 source)Nonsteroidal Anti-inflammatory Drug, Cyclooxygenase InhibitorStart: 06-03-2025 End: mg, IntraMUSCular, ONCE, 1 dose, On Fri06/03/25 at 0930, Do not administer for more than 5 days. Problems Problem ClassificationProblemDateDocumented DateEpisodic/ChronicAllergic reactions (1 source)Contact dermatitis; Translations: [Unspecified contact dermatitis, unspecified cause]Onset: 45-52-6991NpmnmkmvPlvfloxyf of teeth and jaw (2 sources)Dental abscess; Translations: [Periapical abscess without sinus] Onset: 622837-83-1882FiydlqzgYrqmg skin disorders (1 source)Rash and other nonspecific skin eruption; Translations: [Rash and other nonspecific skin eruption]Onset: 89-90-4565DkcrwwmsDtie and subcutaneous tissue infections (1 source)Cellulitis; Translations: [Cellulitis, unspecified]Onset: 04-22-2022 Episodic Results Test NameValueInterpretationReference RangeFacilityED Note - Provideron 95-38-0884AN Note - Provider [id number]#1.00OTMount Carmel Health SystemED Note - Physicianon [id number] Note - Physician [id number]#1.00[facility] Coding Summary.on 36-51-3671Unsjfs Summary. CD:[id number]:[id number]+[id number] BU1URupN5EojlOt [file] ZTog (more content not included)...NormalFisher Annville Medical CenterED Note-Physicianon [id number] Note-PhysicianBasic Information Time Seen: Philippe Rice DO 04/22/2022 [...] linear distribution. She also appears to be developinga secondary cellulitis behind the right knee with tenderness and drainage. She is treated with Kenalog here and discharged home with Benadryl and Keflex. She is to follow-up with her PCP. Patient wasencouraged to return to the ED if symptoms worsen or change. Assessment/Plan Cellulitis (L03.90: Cellulitis, unspecified) Contact dermatitis (L25.9: Unspecified contact dermatitis, unspecified cause) Orders: cephalexin, 500 mg = 1 cap(s), Oral, TID, Take one capsule by mouth three times a day for ten days,# 30 cap(s), Refills(s) 0 diphenhydrAMINE, 1 -2 [...] mg= 1 cap(s), Oral, TID Follow-up With Vignesh Contact Information DARRON MCMILLAN In 3 days 04/25/2022 EDT Additional Instructions: Patient Education Contact Dermatitis Cellulitis, Adult Attestation Patient seen and evaluated by the physician manufacturing assistant. Attending physician was present in the emergency department and supervised care. This visit was performed by both the physician and an APC. I performed all aspects of the MDM as documented. This report was transcribed using voice recognition software. Every effort was made to ensure accuracy, however, inadvertently computerized field reporter mistakes may be present. Appropriate healthcare PPE [...] data available. Diagnostic Results No qualifying data available.[facility] Medical CenterComment on above: Result Comment: Electronically Signed By: Keenan Charles PA-C\.br\Date and Time Signed: 04/22/2211:45 EDT\.br\Electronically Co-Signed By: Philippe Rice DO\.br\Date and Time Co-Signed: 04/23/22 07:13 EDTConsent for Treatmenton 66-28-1181Ptcdgln for Treatment [id number]#1.00CD:127[facility] Medical CenterDischarge Instructionson 20-87-0148Gqhpfffty Instructions [id number]:127[facility] Clinical Summaryon 48-15-2261UQ Clinical Summary [place] [id number] ED Clinical Summary Person Information Name: NISA ARSHAD [facility] Age: 42 Years : 1980 Sex: Female Language: Bermudian PCP: DARRON MCMILLAN DO Marital Status: Single [...] 04/22/2022 12:02:06 04/22/2022 12:02:06 04/22/2022 12:02:06 ADDRESS: [address] [place] [address] [address] [place] [id number] PHYS DOC NOTES: MEDICAL INFORMATION: Prescriptions Given: [...] Dermatitis; Cellulitis, Adult Follow up: With: Address: Vignesh: DARRON MCMILLAN In 3 days 04/25/2022 DIAGNOSIS: Cellulitis; Contact dermatitisNormalFisher Sabino Medical CenterED Patient Education Noteon 89-95-4761XD Patient Education NoteDermatology Contact Dermatitis Dermatitis is redness, soreness, and [...] substance that you are allergic to, such aspoison cale. This type occurs when you have [...] you may need to see an occupational work experience teacher. How is this treated? This condition is [...] and dyes. Medicines ? Take or apply gkfd-tre-kpmwaos and prescription medicines only as told by [...] and water are not available, use hand instrument repair technician. General instructions ? Avoid the substance that [...] help right away if: (more content not included)...[facility] Patient Summaryon 85-23-4791EQ Patient Summary [place] [id number] Patient Discharge Instructions Person Information Name: NISA ARSHAD Age: 42 Years Arrival Date: 04/22/2022 11:32:43 Discharge Diagnosis: Cellulitis; Contact dermatitis Primary Care Physician: DARRON CMMILLAN DO Provider Information Primary Provider: Philippe Rice DO [employer] System Admin:Keenan Charles PA-C The exam and treatment you received in the Emergency Department were for an urgent problem and are not intended as complete care. It is important that you follow up with a doctor, nurse practitioner,or physician?s manufacturing assistant for ongoing care. If your symptoms become worse or you do not improve as expected and you are unable to reach your usual health care provider, you should return to the Emergency Department. We are available 24 hours a day. NISA ARSHAD has been given the following list of patient education materials, prescriptions and follow-up instructions: Follow-up Instructions: With: Address: When: DARRON YANDEL In 3 days 04/25/2022 In the event that this physician does not participate in your insurance network, please consult with your insurance company to find a nearby participating provider. Patient Education Materials: Contact Dermatitis; Cellulitis, Adult A MESSAGE TO ALL PATIENTS REGARDING OPIOIDS PRESCRIPTION OPIOIDS: WHAT YOU NEED TO KNOW Prescription opioids can be used to help relieve rcsbluly-jd-untbsl pain and are often prescribed following a [...] and have fewer risks and side effects. Optionsmay include: ? Pain relievers such as acetaminophen, [...] unused prescription opioids: Find your community drug take- back program or yourPaperlitrmAppBrick mail-back program, or flush them down the toilet, following guidance from the Food and Drug Administration (www.fda.gov/Drugs/ResourcesForYou). ? Visit www.cdc.gov/drugoverdose to learn about the risks of opioids abuse and overdose. ? If you believe you may be struggling with addiction, tell your health acute care registered nurse and ask for guidance or call [facility]?S National Helpline at 4-554-560-NTSU. e Source: US Department of Health and Human Services/[facility] (more content not included)...[facility] Vital Signs Date TimeVital SignValuePerforming VgmilipcqUgvxogyw41-84-4181 08:55-0400Body uwxwfcvqnch48.4 [degF]Leo Gimenez MD Work Phone: [facility]09-12-2025 08:55-0400Diastolic blood ixtkqkwb50 mm[Hg]Leo Gimenez MD [facility] Phone: [facility]09-12-2025 08:55-0400Heart dqni745 /Zoila Gimenez MD Work Phone: [facility]09-12-2025 08:55-0400 Respiratory rate16 /Zoila Gimenez MD Work Phone: [facility]09-12-2025 08:55-6509ClY3% (BldA) [Mass fraction]100 %Leo Gimenez MD Work Phone: [facility]09-12-2025 08:55-0400Systolic blood tevrzjhv499 mm[Hg]Leo Gimenez MD Work Phone: [facility]08-01-2022 11:35-0400Body udnabfugwsu16.88 [degF]Philippe Rice [facility]08-01-2022 11:35-0400 Diastolic blood axzksbwl37 mm[Hg]Philippe Rice [facility]08-01-2022 11:35-0400Heart rate93 /Karen Rice [facility]08-01-2022 11:35-0494InX2% (BldA) [Mass fraction]100 %Philippe Rice [facility]08-01-2022 11:35-0400 Systolic blood bacbigzz907 mm[Hg]Philippe Rice [facility] Encounters Encounter DateEncounter TypeCare ProviderFacilityStart: 06-03-2025 End: 32-39-2671Dmdetqaex department patient visitLeo Gimenez MD Work Phone: [facility] DepartmentComment on above: Dental abscess (Primary Dx)Start: 02-21-2025 End: 56-57-7653xbfmekxcoeTjuput P JacksonFacility:[facility] CTRStart: 03-17-2023 End: 16-76-1961Cmzcjahyp department patient visitMagdi Gutierrez [facility]: 04-22-2022 End: 21-64-4938Gtmeaeixk department patient visitPhilippe Rice [facility] Plan of Treatment DateCare ActivityDetailAuthorStart: 43-25-6303DOICY-19 Vaccine ( season)COVID-19 Vaccine ( season)[facility] CenterStart: 16-14-3014Phxfjomlv vaccinationFlu vaccine (#1)[facility] CenterStart: 29-54-4921Fgmhsbgot for malignant neoplasm of colonBon [facility] Start: 40-58-7619Bgelg panelLipidsBon [facility] HealthStart: 2019 Screening for malignant neoplasm of breastBreast cancer screenBon Parkview HealthStart: 95-50-4557Fkefmciln for malignant neoplasm of cervixBon Parkview HealthStart: 94-60-4240Awihoijvz for malignant neoplasm of cervixPap smear [facility] CenterStart: 10-48-4676LUbP/Tdap/Td vaccine (1 - Tdap) DTaP/Tdap/Td vaccine (1 - Tdap)[facility] CenterStart: 1998 Hepatitis B vaccine (1 of 3 - 19+ 3-dose series)Hepatitis B vaccine (1 of 3 - 19+ 3-dose series)[facility] CenterStart: 08-18-7510Zxnskhklwzhg 0-49 years Vaccine (1 of 2 - PCV)Pneumococcal 0-49 years Vaccine (1 of 2 - PCV)[facility] Centerart: 28-57-6965Wiqpejkvj C screeningHepatitis C screenC[facility]apeake Regional Medical CenterStart: 92-48-3232NPC screeningHIV screenC[facility]apeake Regional Medical CenterStart: 87-09-6572Qaimkexpav ScreenDepression ScreenChesapeake [facility] Payers DatePayer CategoryPayerPolicy [id number] Care (unspecified)[id number] [id number] Social History DateTypeDetailFacilityTobacco smoking statusNo Smoking Status EnteredCincinnati VA Medical Centertart: 12-16-2023 End: 48-35-3050Vgz Assigned At BirthFeDayton VA Medical Centertart: 59-05-2504Zufjnru smoking status NHISOccasional tobacco smokerC[facility]apeake Regional Medical CenterStart: 85-31-7865Qrdfeegpm beverage intakeLifetime non-drinker (finding) [facility] Centerart: 12-16-2023 End: 68-38-6486Huxfedp of Social functionBon Parkview HealthHow often to you have a drink containing alcohol?NeverBon Parkview HealthHow many standard drinks containing alcohol do you have on a typical day?Patient does not drinkChesapeake Regional Medical CenterStart: 31-80-8013Jim assigned at birthNot on file [facility]: 45-85-3525FbgHxmszx (finding)[facility] Functional Status HjynMfrlfblztvFvvisnPvokhdrh07-18-6793Bkboxfskuf StatusN/Michelle - [facility] Clinical Notes 04-22-2022 to 07-25-2025 Note Date & QcpkBdhsZzvsipyg36-12-0752 Note From: Anjali Solis RN ([facility] ([facility])) To: Molly Ferrer APRN, CNP; Sent: 07/19/2025 14:31:47 EDT Subject: FW: Medication Management Due Date/Time: 07/20/2025 14:19:00 EDT Caller Name: JEANCARLOS NISA NAJERAN; Caller Number: H Last seen 11/2023 - patient was called 02/09/25 to notify that she needed appt for further refills scheduled for 02/21/25 patient no showed for that appointment No show letter was sent - no scheduled appt at this time From: [email or web address] [id number] To: Darron Mcmillan DO Sent: July 19, 2025 1:19:57 PM CDT Subject: Medication Management Due: July 20, 2025 12:02:03 AM CDT On Hold Pending Signature Dispensed Drug: gabapentin (gabapentin 300 mg oral capsule), TAKE 1 CAPSULE BY MOUTH TWICE A DAY Quantity: 60 cap(s) Days Supply: 30 Refills: 3 Substitutions Allowed Notes from Pharmacy: From: Molly Ferrer APRN, CNP To: [facility] ([facility] Sent: 07/19/2025 14:42:13 EDT Subject: RE: Medication Management Caller Name: NISA ARSHAD; Caller Number: H needs appt before refills From: Anjali Solis RN ([facility] ([facility])) To: [facility] Clerical [place] ([facility] Sent: 07/19/2025 14:51:33 EDT Subject: FW: Medication Management Caller Name: NISA ARSHAD; Caller Number: H Please schedule left a message to call office to schedule an appointment appt 79-85-37FrrmlqzeSelect Medical Specialty Hospital - [id number] Hospital Discharge instructions* Discharge Instructions* Leo Gimenez MD - 06/03/2025 9:33 AM EDT You will need to see a dentist to provide follow up care which may require either extraction of thetooth or a root canal. Take your medication as indicated and prescribed. You were given an antibiotic. Make sure you get the prescription filled and take the antibiotics until finished. Drink plenty of water while taking the antibiotics. Avoid drinking alcohol or drinks that have caffeine in it while taking antibiotics. For pain: Tylenol can be taken every 6 hours. Ibuprofen can be taken every 6 hours. It is recommended you alternate the two every three hours. Do not take ibuprofen until tonight (after 9pm) as you were given toradol in the ED. Example pain medication schedule: - 9am: Tylenol (500-1000mg) - 12 pm/noon: Ibuprofen (400-600mg) - 3pm: Tylenol - 6pm: Ibuprofen Maximum dose of tylenol in a 24 hour period is 4000mg. Begin weaning from ibuprofen in 2-3 days to prevent stomach complications. If you notice facial swelling, increasing pain, fevers, trouble swallowing, trouble bleeding, change in speech, return to the ED immediately for re-evaluation, PLEASE RETURN TO THE EMERGENCY DEPARTMENT IMMEDIATELY for worsening symptoms, swelling to your face, redness on your face, drainage from the tooth, or if you develop any concerning symptoms such as: high fever not relieved by acetaminophen (Tylenol) and/or ibuprofen (Motrin / Advil), chills, shortness of breath, chest pain, feeling of your heart fluttering or racing, persistent nausea and/or vomiting, vomiting up blood, blood in your stool, numbness, loss of consciousness, weakness or tingling in the arms or legs or change in color of the extremities, changes in mental status, persistent headache, blurry vision, loss of bladder / bowel control, unable to follow up with your physician, or oth er any other care or concern. documented in this encounterBon [facility]view Health06-24-2025 Note From: Ana María Garza MA ([facility] Clinical [place] ([facility])) To: Darron Mcmillan DO; Sent: 03/15/2025 08:18:02 EDT Subject: FW: Medication Management Due Date/Time: 03/16/2025 00:25:00 EDT Caller Name: NISA ARSHAD; Caller Number: H [facility] 03-15-25 last filled: 02-10-25 disp: 60 last appointment: 11-26-23 upcoming appointment: none CSA none From: [email or web address] [id number] To: Molly Ferrer CNP Sent: March 14, 2025 11:25:02 PM CDT Subject: Medication Management Due: March 15, 2025 5:13:12 PM CDT On Hold Pending Signature Dispensed Drug: gabapentin (gabapentin 300 mg oral capsule), TAKE 1 CAPSULE BY MOUTH TWICE A DAY Quantity: 60 cap(s) Days Supply: 30 Refills: 0 Substitutions Allowed Notes from Pharmacy: Submitted: Order:gabapentin (gabapentin 300 mg oral capsule) 1 cap(s) Oral BID Qty: 60 cap(s) Duration: 30 day(s) Refills: 3 Substitutions Allowed Route To Pharmacy - [facility]/pharmacy #[id number] [facility] 02/09/25 Signed by Darron Mcmillan DO 03/15/2025 08:21:00 [facility] 02-09-2025 Note From: Anjali Solis RN ([facility] ([facility])) To: Molly Ferrer CNP; Sent: 02/09/2025 13:15:56 EDT Subject: FW: Medication Management Due Date/Time: 02/10/2025 08:38:00 EDT Caller Name: NISA ARSHAD; Caller Number: H Appt 02/21 From: [facility] STORE [id number] To: Darron Mcmillan DO Sent: February 09, 2025 7:38:20 AM CDT Subject: Medication Management Due: February 10, 2025 12:07:10 AM CDT On Hold Pending Signature Dispensed Drug: gabapentin (gabapentin 300 mg oral capsule), TAKE 1 CAPSULE BY MOUTH TWICE A DAY Quantity: 60 cap(s) Days Supply: 30 Refills: 0 Substitutions Allowed Notes from Pharmacy: From: Molly Ferrer APRN, CNP To: [facility]/pharmacy #[id number] Sent: 02/09/2025 14:16:33 EDT Subject: FW: Medication Management Submitted: Order:gabapentin (gabapentin 300 mg oral capsule) 1 cap(s) Oral BID Qty: 60 cap(s) Duration: 30 day(s) Refills: 0 Substitutions Allowed Route To Pharmacy - [facility]/pharmacy #[id number] oas 02/09/25 Signed by Molly Ferrer APRN [facility] 02/09/2025 14:15:00 EDT Submitted: Complete:gabapentin (gabapentin 300 mg oral capsule) o[facility]rs 08/30/24 Signed by Molly Ferrer APRN [facility] 02/09/2025 14:16:00 EDT Not Approved: New Rx to follow gabapentin (GABAPENTIN 300 MG CAPSULE) TAKE 1 CAPSULE BY MOUTH TWICE A DAY Qty: 60 cap(s) Days Supply: 30 Refills: 0 Substitutions Allowed Route To Pharmacy - [facility]/pharmacy #[id number] Signed by Molly Ferrer APRN [facility]04-24-2025 Note From: Anjali Solis RN ([facility] ([facility])) To: Darron Mcmillan DO; Sent: 01/13/2025 14:53:15 EDT Subject: Med Management Caller Name: NISA ARSHAD; Caller Number: , Caller is: ( X ) Patient ( ) Mother ( ) Father ( ) Pharmacy ( ) Other: Pharmacy to route Rx to: [facility] Patient's Provider: Reviewed Allergies: ( ) Yes ( ) No Pharmacy: [facility] Comments: PATIENT HAS NOT BEEN SEEN IN OVER A YEAR - PLEASE ONLY GIVE HER 1 MONTH 1. Name of Medication: GABAPENTIN Dosage: Dispense: ( ) New ( ) [...] 0 Substitutions [id number] [place] 08/30/24 Signed by Darron Mcmillan DO 01/13/2025 15:11:00 [facility] 11-12-2024 Note From: Anjali Solis RN ([facility] ([facility])) To: Darron Mcmillan DO; Sent: 11/12/2024 07:24:11 EST Subject: FW: Medication Management Due Date/Time: 11/12/2024 20:33:00 EST Caller Name: NISA ARSHAD; Caller Number: , M From: [facility] STORE [id number] To: Molly Ferrer CNP Sent: November 11, 2024 7:33:29 PM SENIOR PRODUCTION SUPERVISOR Subject: Medication Management Due: November 12, 2024 2:55:35 AM SENIOR PRODUCTION SUPERVISOR On Hold Pending Signature Dispensed Drug: gabapentin (gabapentin 300 mg oral capsule), TAKE 1 CAPSULE BY MOUTH TWICE A DAY Quantity: 60 cap(s) Days Supply: 30 Refills: 1 Substitutions Allowed Notes from Pharmacy: DX Code Needed . Submitted: Order:gabapentin (gabapentin 300 mg oral capsule) 1 cap(s) Oral BID Qty: 60 cap(s) Days Supply: 30 Refills: 1 Substitutions Allowed Route To Pharmacy - [facility]/pharmacy #[id number] [place] 08/30/24 Signed by Darron Mcmillan DO 11/12/2024 07:37:00 [facility] 08-30-2024 Note From: Anjali Solis RN ([facility] ([facility])) To: Molly Ferrer CNP; Sent: 08/30/2024 07:32:13 EST Subject: FW: Medication Management Due Date/Time: 08/30/2024 19:47:00 EST Caller Name: NISA ARSHAD; Caller Number: Feliberto , M Patient matched by Anjali Solis RN on 08/30/2024 07:31:32 EST From: [facility] STORE [id number] To: Darron Mcmillan DO Sent: August 27, 2024 6:47:15 PM SENIOR PRODUCTION SUPERVISOR Subject: Medication Management Due: August 28, 2024 12:10:08 AM SENIOR PRODUCTION SUPERVISOR On Hold Pending Signature Dispensed Drug: gabapentin (gabapentin 300 mg oral capsule), TAKE 1 CAPSULE BY MOUTH TWICE A DAY Quantity: 60 cap(s) Days Supply: 30 Refills: 1 Substitutions Allowed Notes from Pharmacy: From: Molly Ferrer APRN, CNP To: [facility]/pharmacy #[id number] Sent: 08/30/2024 12:05:15 EST Subject: FW: Medication Management Submitted: Order:gabapentin (gabapentin 300 mg oral capsule) 1 cap(s) Oral BID Qty: 60 cap(s) Days Supply: 30 Refills: 1 Substitutions Allowed Route To Pharmacy - [facility]/pharmacy #[id number] oar[place] 08/30/24 Signed by Molly [...] 1 Substitutions Allowed Route To Pharmacy - [facility]/pharmacy #[id number] Signed by Molly Ferrer APRN [facility]08-01-2022 Hospital Discharge instructions Patient Education 04/22/2022 12:02:06 Contact Dermatitis [...] This type does not require previous exposure tothe substance for a reaction to occur. This is the most common type. Allergic contact dermatitis. This type is caused by a substance that you are allergic to, such as poison cale. This type occurs when you have been exposed to the substance (allergen) and develop a sensitivity to it. Dermatitis may develop soon after your first exposure to the allergen, or it may notdevelop until the next time you are exposed [...] you may need to see an occupational work experience teacher. How is this treated? This condition is [...] perfumes, and dyes. Medicines Take or apply wnsg-kiw-anrecmm and prescription medicines only as told by your health care provider. If you were prescribed an antibiotic medicine, take or apply the antibiotic as told by your health care provider. Do not stop using the antibiotic even if your condition improves. Bathing Try taking a bath with: ?Epsom salts. Follow the instructions on the packaging. You can get these at your local pharmacy [employer] store. ?Baking soda. Pour a small amount [...] and water are not available, use hand instrument repair technician. General instructions Avoid the substance that caused your reaction. If you do not know what caused it, keep a journal totry to track what caused it. Write down: [...] know what caused it, keep a journal totry to track what caused it. Contact a [...] 09/05/2001 Document Revised: 12/29/2019 Document Reviewed: 03/24/2019 [employer] Patient Education 2020 [employer]. 04/22/2022 12:02:06 Cellulitis, Adult Cellulitis, Adult Cellulitis [...] Follow these instructions at home: Medicines Take bneg-ojz-vaqbvzm and prescription medicines only as told by your health care provider. If you were prescribed an antibiotic medicine, take it as told by your health care provider. Do notstop taking the antibiotic even if you start [...] care provider. This is important. These visits letyour health care provider make sure a more [...] such as antibiotic medicines or antihistamines. Take eisq-rpv-ugjugha and prescription medicines only as told by your health care provider. If you were prescribed an antibiotic medicine, do not stop taking the antibiotic even if you start to feel better. Contact a health care provider if your symptoms do not begin to improve within 1 2 days of startingtreatment or your symptoms get worse. Keep all follow-up visits as told by your health care provider. This is important. These visits letyour health care provider make sure that a more serious infection is not developing. This information is not intended to replace advice given to you by your health care provider. Make sure you discuss any questions you have with your health care provider. Document Released: 06/18/2006 Document Revised: 01/28/2019 Document Reviewed: 01/28/2019 [employer] Patient Education 2020 [employer]. Follow Up Care 04/22/2022 11:34:55 With:DARRON MCMILLAN Address:Unknown When:04[facility]25/2022 11[facility]40:[facility] No data available for this section [facility] Diagnosis Dental abscess- Primary Periapical abscess without sinus documented in this encounter [facility] note No data available for this section [facility] Summary Purpose Family History No Family History Records FoundNo Family History Records FoundNo Family History Records FoundNo Family History Records Found Advance Directives No Advanced Directives Records FoundNo Advanced Directives Records FoundNo Advanced Directives Records FoundNo Advanced Directives Records Found Additional Source Comments Care Team (unrecognized sect ion and content) Personnel Name: DARRON MCMILLAN DO Address: [address] [place] [address]- INFORMATION SOURCE (unrecogn ized section and content) DATE CREATED AUTHOR 04/24/2022 [facility] DATE CREATED AUTHOR AUTHOR'S ORGANIZ ATION 04/02/2023 [facility] DATE CREATED AUTHOR AUTHOR'S ORGANIZ ATION 06/05/2025 [facility] DATE CREATED AUTHOR AUTHOR'S ORGANIZ ATION 07/26/2025 [facility] Reason for Visit (unrecogniz ed section and content) ReasonCommentsDental PainLeft sided upper dental pain and drainage started one month ago causing nausea. Ordered Prescriptions (unrec ognized section and content) PrescriptionSigDispense QuantityRefillsLast FilledStart DateEnd Date ondansetron (ZOFRAN) 4 MG tablet Take 1 tablet by mouth every 8 hours as needed for Nausea 10 tablet 06/03/2025 amoxicillin-clavulanate (AUGMENTIN) 875-125 MG per tablet Take 1 tablet by mouth 2 times daily for 10 days 20 tablet / Scheduled Active and Recently Administ ered Medications (unrecognized section and content) Medication Order/ amoxicillin-clavulanate (AUGMENTIN) 875-125 MG per tablet 1 tablet (COMPLETED) 1 tablet, Oral, ONCE, 1 dose, On Fri06/03/25 at 0945, Antimicrobial Indications: Skin and Soft Tissue Infection * 1005 (Given - Provider: Karen Matias RN) benzocaine (HURRICAINE) 20 % oral spray (COMPLETED) Mouth/Throat, Once, On Fri06/03/25 at 1015, For 1 dose, Firmly insert provided extension tube into spray can valve. Hold extension tube 1-2 inches from affected area and spray for second (press and immediately release actuator). * 1015 (Given - Provider: Ivonne Hoffman RN - Comment: Dr Smith applied to pts mouth) ketorolac (TORADOL) injection 30 mg (COMPLETED) 30 mg, IntraMUSCular, ONCE, 1 dose, On Fri06/03/25 at 0930, Do not administer for more than 5 days. * 1005 (Given - Provider: Karen Matias RN) FOR RECORDS PERTAINING TO PATIENTS WHO ARE [...] BE BASED ON THE PRIMARY CLINICAL RECORDS. [facility] [employer] [facility]. provides no warranty or guarantee of the accuracy or completeness of information in this document.
[2025-07-27 18:00] LABS: Anion Gap 12.9
[2025-07-27 18:02] LABS: Alanine Aminotransferase 21 U/L (14-59); Albumin Globulin Ratio 0.8; Albumin Level 3.0 g/dL (3.4-5.0); Alkaline Phosphatase 78 U/L (46-116); Aspartate Amino Transferase 20 U/L (15-37); Blood Urea Nitrogen 9.0 mg/dL (7.0-18.0); Calcium 8.5 mg/dL (8.5-10.1); Carbon Dioxide 25.9 mmol/L (21.0-32.0); Chloride 104 mmol/L (98-107); Estimated GFR (African America >60 (>=60 mL/min/1.73m^2); Estimated GFR (Non-African Ame >60 (>=60 mL/min/1.73m^2); Globulin 3.6 g/dL; Glucose 100 mg/dL (74-106); Sodium 139 mmol/L (136-145); Total Protein 6.6 g/dL (6.4-8.2)
[2025-07-27 18:04] LABS: Potassium 3.8 mmol/L (3.5-5.1)
[2025-07-27] MEDS: 0.9 % SODIUM CHLORIDE 1,000 ML 999 ML IV (18:35)
[2025-07-27] MEDS: KETOROLAC TROMETHAMINE 30 MG/ML VIAL 15 MG IVP (21:03)
[2025-07-27] MEDS: DEXAMETHASONE SOD PHOS 10 MG/ML VIAL IV (21:04)
[2025-07-27 21:06] LABS: Glucose Urine UA NEGATIVE (NEGATIVE)
[2025-07-27 21:09] LABS: HCG Qualitative Urine* NEGATIVE (NEGATIVE)
[2025-07-27 21:16] LABS: Cannabinoid Screen Urine NEGATIVE (NEGATIVE); Methamphetamines Screen Urine POSITIVE (NEGATIVE); Tricyclic Antidepressant Urine NEGATIVE (NEGATIVE)
[2025-07-27] MEDS: GABAPENTIN 300 MG CAPSULE PO (21:45)
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
== END 2025-07-27 22:12 | disposition home or self-care (01) ==
PROVIDERS: Nurse Practitioner Family; Emergency Provider Emergency Medicine; PCP Family Medicine
DX: Z76.0 Encounter for issue of repeat prescription (principal); F15.90 Other stimulant use, unspecified, uncomplicated; F19.239 Other psychoactive substance dependence with withdrawal, unspecified; R51.9 Headache, unspecified
CPT/HCPCS: 36415; 70450; 71045; 80053; 80307; 80320; 81003; 84484; 84703; 85025; 93005; 96374; 96375; 99285; J1100; J1885; J2405